=== PATIENT | female | born 1935 | race Caucasian/White ===

== ENCOUNTER → 2016-06-18 | Outpatient (CLI) | payer OTHER, BC ==
[~2016-06-18] MED LIST: ASPCH81X PO; CANA1TAB PO; CHOL20005 PO; GLC/500 PO; MULT-845 PO
--- NOTE | 2016-06-18 11:50 | DIAGNOSTIC IMAGING REPORT ---
KNEE 4 OR MORE VIEWS CLINICAL HISTORY: BILAT KNEE PAIN pain COMPARISON: 01/27/2013 DISCUSSION: Minimal to mild degenerative change all major joint compartments. Small osteophyte projecting from the tibial spines. No significant joint effusion. Small benign bone island distal femoral shaft. No acute bony abnormality. There is no evidence for soft tissue swelling. IMPRESSION: Minimal to mild degenerative change all major joint compartments. No major change compared to the prior study of 2012 Electronically signed by: Nick Gonzales M.D. 06/18/2016 11:49 AM Dictated Date/Time: 06/18/2016 11:47 AM
--- NOTE | 2016-06-18 11:50 | DIAGNOSTIC IMAGING REPORT ---
LEFT KNEE 3 VIEWS HISTORY: Left knee pain. COMPARISON: None. FINDINGS: There is no fracture or dislocation. Soft tissues are unremarkable. The bones are osteopenic. Mild cartilage space narrowing and small marginal osteophytes at the medial compartment of the knee. No significant knee effusion. IMPRESSION: No fractures. Mild osteoarthritis. Electronically signed by: Donavan Martinez M.D. 06/18/2016 11:49 AM Dictated Date/Time: 06/18/2016 11:47 AM
== END | disposition home or self-care (01) ==
LOC: C.RAD1850 11:11
PROVIDERS: ATTEND Family Medicine
DX: M25.561 Pain in right knee (principal); M25.562 Pain in left knee

== ENCOUNTER → 2016-10-02 | Outpatient (CLI) | payer OTHER, BC ==
--- NOTE | 2016-10-02 13:06 | MAMMOGRAPHY REPORT ---
BILATERAL DIGITAL SCREENING MAMMOGRAM WITH CAD: 10/02/2016 CLINICAL HISTORY: Routine screening. Patient has no complaints. TECHNIQUE: Bilateral CC and MLO views were obtained. Repeat left CC and right MLO views were also o btained. Current study was also evaluated with a Computer Aided Detection (CAD) system. COMPARISON: Comparison is made to exams dated: 09/29/2015 mammogram, 09/23/2014 mammogram, 09/17/2013 deion mogram, 09/16/2012 mammogram, 09/14/2011 mammogram, and 08/25/2010 mammogram - [facility] er. BREAST COMPOSITION: There are scattered areas of fibroglandular density in both breasts. FINDINGS: There are scattered benign-appearing round and coarse calcifications. No suspicious mass, architectural distortion or cluster of suspicious microcalcifications is seen. IMPRESSION: ACR BI-RADS CATEGORY 1: NEGATIVE There is no mammographic evidence of malignancy. A 1 year screening mammogram is recommended. The pa tient will receive written notification of the results. Approximately 10% of breast cancers are not detected with mammography. A negative mammographic report should not delay biopsy if a clinically suggestive mass is present. Yvette Miramontes M.D. ay/:10/02/2016 12:00:02 Pediatric Licensed Practical Nurse: Lexii NOLASCO(Gaye)([place])([place]), [facility] letter sent: Normal 1/2 BI-RADS Code: ACR BI-RADS Category 1: Negative
== END | disposition home or self-care (01) ==
LOC: C.MAMM 11:06
PROVIDERS: ATTEND Family Medicine
DX: Z12.31 Encounter for screening mammogram for malignant neoplasm of breast (principal)

== ENCOUNTER → 2017-07-02 | Outpatient (CLI) | payer OTHER, BC | END | disposition home or self-care (01) | LOC: C.RDSM 10:39 | PROVIDERS: ATTEND Orthopaedic Surgery Sports Medicine | DX: M25.561 Pain in right knee (principal); M25.562 Pain in left knee; M17.0 Bilateral primary osteoarthritis of knee ==

== ENCOUNTER → 2017-11-08 | Outpatient (CLI) | payer OTHER, BC ==
--- NOTE | 2017-11-08 14:29 | MAMMOGRAPHY REPORT ---
BILATERAL DIGITAL SCREENING MAMMOGRAM TOMOSYNTHESIS WITH CAD: 11/08/2017 CLINICAL HISTORY: Routine screening. Patient has no complaints. TECHNIQUE: Breast tomosynthesis in addition to standard 2D mammography was performed. Current study w as also evaluated with a Computer Aided Detection (CAD) system. COMPARISON: Comparison is made to exams dated: 10/02/2016 mammogram, 09/29/2015 mammogram, 09/23/2014 ma mmogram, 09/17/2013 mammogram, 09/16/2012 mammogram, and 09/14/2011 mammogram - [facility] er. BREAST COMPOSITION: There are scattered areas of fibroglandular density in both breasts. FINDINGS: No suspicious masses, calcifications, or areas of architectural distortion are noted in either breast . There has been no significant interval change compared to prior exams. Scattered bilateral benign-a ppearing calcifications are not significantly changed. IMPRESSION: ACR BI-RADS CATEGORY 2: BENIGN There is no mammographic evidence of malignancy. A 1 year screening mammogram is recommended.( [id number]) The patient will receive written notification of the results. Some breast cancers are not detected with mammography. A negative mammographic report should not janneth y biopsy if a clinically suggestive mass is present. Nay Laurent M.D. ah/:11/08/2017 14:08:53 Field Account Director: RT Ivy(Gaye)(M), [facility] letter sent: Normal 1/2 BI-RADS Code: ACR BI-RADS Category 2: Benign
== END | disposition home or self-care (01) ==
LOC: C.MAMM 13:09
PROVIDERS: ATTEND Family Medicine
DX: Z12.31 Encounter for screening mammogram for malignant neoplasm of breast (principal)

== ENCOUNTER 2019-08-10 12:07 | Inpatient (IN) ==
[2019-08-10] MEDS ORDERED: VANCOMYCIN CONSULT ACTIVE PRN ×2 (12:28→22:02)
[2019-08-10] MEDS ORDERED: VANCOMYCIN HCL 1,500 MG in SODIUM CHLORIDE 0.9% 500 ML IV STA (12:28)
[2019-08-10] MEDS ORDERED: CEFEPIME 2,000 MG/12.5 ML VIAL IV STA (12:33)
--- NOTE | 2019-08-10 12:39 | Emergency Department Note ---
History of Present Illness General Chief complaint: Finger Pain Stated complaint: finger pain Time Seen by Provider: 08/10/19 12:15 Source: patient Mode of arrival: ambulatory Limitations: no limitations History of Present Illness Maximum Pain Intensity: 5 This is a 84-year-old female who presents to the ED with a chief complaint of swelling and pain in the left hand. The patient states that she has noticed the swelling and pain in the left hand over the past couple of days. She also states that it is red and tender. She has had some issues with her distal thumbs as they seem to be eroding away. This is been over a more prolonged period of time. The patient states that she has discomfort in the hand that feels like tension. She has not had any fevers. No nausea or vomiting. The left hand is entirely affected and she has erosion of the left distal thumb. The right hand only has some erosion of the distal thumb. The distal portion of that thumb is also reddened. There is no discharge from either wound. She also has some wounds in the M CP joint areas on the palmar side. These appear to be somewhat chronic as well. Home Medications Home Medications Medication Instructions Recorded Confirmed Type Levemir U-100 Insulin 8 unit SUBCUT HS 01/09/18 08/10/19 History sitagliptin-metformin 2 tab PO DAILY 01/09/18 08/10/19 History cholecalciferol (vitamin D3) 2,000 units PO DAILY #60 cap 01/15/18 08/10/19 Rx [Vitamin D3] Multivitamin 50 Plus 1 tab PO DAILY 02/11/18 08/10/19 History PreserVision AREDS 1 tab PO BID 02/11/18 08/10/19 History aspirin [Ecotrin Low Strength] 81 mg PO Q OTHER DAY 02/11/18 08/10/19 History hypromellose 1 drp OPHTHALMIC (EYE) QID PRN 02/11/18 08/10/19 History metoprolol succinate 12.5 mg PO DAILY 02/09/19 08/10/19 History Jardiance 25 mg PO DAILY 03/23/19 08/10/19 History pantoprazole 40 mg PO DAILY 03/23/19 08/10/19 History losartan 25 mg PO DAILY 08/10/19 08/10/19 History Allergies Allergy/AdvReac Type Severity Reaction Status Date / Time No Known Allergies Allergy Mild NONE Verified 02/09/19 19:29 Past Med/Surg History Medical History Aortic stenosis Aortic stenosis Arthritis (Chronic) Bifascicular bundle branch block Chronic diastolic CHF (congestive heart failure) Diabetes (Chronic) Left shoulder pain Mitral regurgitation Pericardial effusion Sinus tachycardia Surgical History Status post cholecystectomy Status post shoulder surgery bilateral Family History Other Family history non-contributory Social History Preferred Language: Kinyarwanda Communication Ability: Effective Visual Impairment: No Limitations Hearing Ability: Normal Electric Vehicle Electrician Required: No Beliefs That Will Affect Care: None marital status: Single Current Living Situation: Family Current Living Situation Comment: sister Feels Safe at Home: Yes Smoking Status: Former smoker Hx Alcohol Use: No Hx Substance Use: No Review of Systems A total of 10 systems reviewed and were otherwise negative Physical Exam Vital Signs Vital Signs - 24 hr 08/10/19 12:09 08/10/19 13:22 08/10/19 13:30 Temperature 37.2 C Temperature Source Oral Pulse Rate 117 H 120 H 121 H Respiratory Rate 20 21 24 Respiratory Effort / Characteristics Non-Labored Respiratory Depth Normal Blood Pressure 149/90 H Blood Pressure Mean 109 Blood Pressure Position Sitting Pulse Oximetry 94 Oxygen Delivery Method Room Air Sepsis Recent Fever Within 48 Hours No Sepsis Action Taken by Nursing No Action Required 08/10/19 13:34 08/10/19 13:40 08/10/19 13:50 Temperature Temperature Source Pulse Rate 115 H 118 H 121 H Respiratory Rate 22 22 22 Respiratory Effort / Characteristics Respiratory Depth Blood Pressure 126/71 Blood Pressure Mean 95 Blood Pressure Position Pulse Oximetry Oxygen Delivery Method Sepsis Recent Fever Within 48 Hours Sepsis Action Taken by Nursing 08/10/19 14:00 08/10/19 14:10 08/10/19 14:20 Temperature Temperature Source Pulse Rate 112 H 111 H 110 H Respiratory Rate 24 38 H 33 H Respiratory Effort / Characteristics Respiratory Depth Blood Pressure 115/68 Blood Pressure Mean 78 Blood Pressure Position Pulse Oximetry Oxygen Delivery Method Sepsis Recent Fever Within 48 Hours Sepsis Action Taken by Nursing 08/10/19 14:30 08/10/19 14:40 Temperature Temperature Source Pulse Rate 110 H 106 H Respiratory Rate 22 34 H Respiratory Effort / Characteristics Respiratory Depth Blood Pressure 120/68 Blood Pressure Mean 71 Blood Pressure Position Pulse Oximetry Oxygen Delivery Method Sepsis Recent Fever Within 48 Hours Sepsis Action Taken by Nursing CONSTITUTIONAL/VITAL SIGNS: Reviewed / noted above. GENERAL: Non-toxic in appearance. INTEGUMENTARY: Warm, dry, and [place]. HEAD: Normocephalic. EYES: without scleral icterus or trauma. ENT/OROPHARYNX: clear and moist. LYMPHADENOPATHY/NECK: Is supple without lymphadenopathy or meningismus. RESPIRATORY: Lungs clear and equal. CARDIOVASCULAR: Regular rate and rhythm. GI/ABDOMEN: Soft and nontender. No organomegaly or pulsatile mass. No rebound or guarding. Normal bowel sounds. EXTREMITIES: Warm and well perfused. The patient has a swollen red hand that is warm and somewhat tender. This also goes to the distal wrist. There are no red streaks up the arm. There is erosion of the left thumb with a chronic appearing open wound at the base of the left thumb on the palmar side. The patient also has what appears to be some erosion of the right thumb with some redness as well as a chronic appearing ulceration at the base of that thumb as well. The right hand does not appear to have any significant swelling or redness other than the thumb. BACK: No CVA tenderness. NEUROLOGICAL: Intact without focal deficits. PSYCHIATRIC: normal affect. MUSCULOSKELETAL: Normally developed with good muscle tone. TRIAGE NURSING DOCUMENTATION REVIEWED. Course Administered Medications Vancomycin HCl 1,500 mg/ (Sodium Chloride) 530 mls @ 200 mls/hr IV NOW STA Stop: 08/10/19 14:57 Last Admin: 08/10/19 13:28 Dose: 200 mls/hr Documented by: [id number] Discontinued Medications Cefepime HCl (Maxipime) 2,000 mg in 12.5 mls @ 3.125 mls/min IV NOW STA Stop: 08/10/19 12:36 Last Admin: 08/10/19 13:28 Dose: 3.125 mls/min Documented by: [id number] Medical Decision Making Medical Records Attestation: I reviewed the patient's medical records. Home Medications Current Medication List: was personally reviewed by me Laboratory Data Attestation: I reviewed the patient's lab results. Result diagrams: 08/10/19 13:10 08/10/19 13:10 Lab Results 08/10/19 08/10/19 08/10/19 Range/Units 13:10 13:10 13:10 WBC 16.75 H (4.8-10.8) K/uL RBC 4.66 (4.2-5.4) M/uL Hgb 14.0 (12.0-16.0) g/dL Hct 41.5 (37-47) % MCV 89.1 (80-100) fL MCH 30.0 (25-34) pg MCHC 33.7 (32-36) g/dL RDW Std Deviation 44.2 (36.4-46.3) fL RDW Coeff of Sharri 13.6 (11.5-14.5) % Plt Count 471 H (130-400) K/uL MPV 9.1 (7.4-10.4) fL Immature Gran % (Auto) 0.5 % Neut % (Auto) 82.4 % Lymph % (Auto) 8.7 % [place] % (Auto) 8.2 % Eos % (Auto) 0.0 % Baso % (Auto) 0.2 % Immature Gran # (Auto) 0.08 H (0.00-0.02) K/uL Neut # (Auto) 13.80 H (1.4-6.5) K/uL Lymph # (Auto) 1.46 (1.2-3.4) K/uL [place] # (Auto) 1.38 H (0.11-0.59) K/uL Eos # (Auto) 0.00 (0-0.5) K/uL Baso # (Auto) 0.03 (0-0.2) K/uL ESR 76 H (0-21) mm/hr Sodium 135 L (136-145) mmol/L Potassium 3.8 (3.5-5.1) mmol/L Chloride 98 (98-107) mmol/L Carbon Dioxide 28 (21-32) mmol/L Anion Gap 9.0 (3-11) BUN 13 (7-18) mg/dl Creatinine 0.57 L (0.6-1.2) mg/dl Est Cr Clr Drug Dosing Not Reportable Est GFR ( Amer) 99.4 Est GFR (Non-Af Amer) 85.7 BUN/Creatinine Ratio 22.2 H (10-20) Glucose 235 H (70-99) mg/dl Calcium 8.8 (8.5-10.1) mg/dl Total Bilirubin 1.1 H (0.2-1) mg/dl AST 12 L (15-37) U/L ALT 19 (12-78) U/L Alkaline Phosphatase 75 (45-117) U/L Total Protein 7.6 (6.4-8.2) gm/dl Albumin 2.9 L (3.4-5.0) gm/dl Globulin 4.7 H (2.5-4.0) gm/dl Albumin/Globulin Ratio 0.6 L (0.9-2) Imaging Data Radiologist's Impression: X-ray of the right hand: IMPRESSION: Osseous erosion of the distal phalanx of the right first finger strongly suggests osteomyelitis in the appropriate clinical setting. X-ray of the left hand IMPRESSION: 1. Osseous dissolution of the distal phalanx of the first finger with possible focal osteopenia of the head of the proximal phalanx. In the setting of infection, these findings are highly suspicious for osteomyelitis with possible involvement of the proximal phalanx. 2. Diffuse soft tissue swelling may represent cellulitis. Blood Pressure Blood Pressure Findings: Elevated blood pressure MDM Narrative This is a 84-year-old female who presents to the ED with a chief complaint of swelling and pain in the left hand. The patient states that she has noticed the swelling and pain in the left hand over the past couple of days. She also states that it is red and tender. She has had some issues with her distal thumbs as they seem to be eroding away. This is been over a more prolonged period of time. The patient states that she has discomfort in the hand that feels like tension. She has not had any fevers. No nausea or vomiting. The left hand is entirely affected and she has erosion of the left distal thumb. The right hand only has some erosion of the distal thumb. The distal portion of that thumb is also reddened. There is no discharge from either wound. She also has some wounds in the M CP joint areas on the palmar side. These appear to be somewhat chronic as well. The patient's vital signs reveal some mild hypertension as well as tachycardia with a heart rate of 117. Her exam as noted above. She has an edematous erythematous left hand with appearance of erosion of the distal left thumb as well as erosion of the distal right thumb. The patient's x-rays of her hands reveal findings suggesting osteomyelitis of the bilateral thumbs. The patient also has an elevated white blood cell count of 16.7. Her glucose is 235. The other lab tests were unremarkable. She was given IV cefepime and IV Vanco. I spoke with the orthopedist on-call, Dr. Haskins. He feels the patient needs medical admission and antibiotics at this point. He did notice that orthopedics from [facility] has seen the patient in the past. He recommends that they be consulted while the patient is in the hospital. The patient does not need urgent surgery. I spoke with Dr. Gonzalez from medicine. He will see the patient for admission for antibiotics. Impression & Plan Cellulitis of hand, Osteomyelitis Discharge Plan Visit Data Chief Complaint: Finger Pain Stated Complaint: finger pain ED Provider: Amado Haile Discharge Problem: Cellulitis of hand, Osteomyelitis Patient Disposition: Being Evaluated by Hospitalist Condition: Good Forms Stand Alone Forms: My [facility], Important Visit Information Prescriptions Prescriptions: No Action Levemir U-100 Insulin 100 unit/mL solution 8 unit subcut HS RF: 0 sitagliptin-metformin 50-1,000 mg tablet, ER multiphase 24 hr 2 tab PO DAILY RF: 0 cholecalciferol (vitamin D3) [Vitamin D3] 1,000 unit capsule 2,000 units PO DAILY Qty: 60 RF: 10 hypromellose 2.5 % Drops 1 drp OPHTHALMIC (EYE) QID PRN (Reason: Dry Eye(S)) RF: 0 aspirin [Ecotrin Low Strength] 81 mg tablet,delayed release (DR/EC) 81 mg PO Q OTHER DAY RF: 0 PreserVision AREDS [id number] Tablet 1 tab PO BID RF: 0 Multivitamin 50 Plus Tablet 1 tab PO DAILY RF: 0 metoprolol succinate 25 mg tablet extended release 24 hr 12.5 mg PO DAILY RF: 0 pantoprazole 40 mg Tablet,Delayed Release (Dr/Ec) 40 mg PO DAILY RF: 0 Jardiance 25 mg Tablet 25 mg PO DAILY RF: 0 losartan 25 mg tablet 25 mg PO DAILY RF: 0 Referrals Referrals: Musa Banuelos MD [Primary Care Provider] -
--- NOTE | 2019-08-10 12:55 | XRay Report ---
XR hand RT min 3V routine CLINICAL HISTORY: 84 years-old Female presenting with thumb infection. TECHNIQUE: Frontal, oblique, and lateral views of the right hand were obtained. COMPARISON: Plain radiographs of the right wrist from 07/29/2014. FINDINGS: Osteopenia. There is osseous dissolution of the mid to distal aspect of the distal phalanx of the fir st finger. Only the base remains, which is congruent at the interphalangeal joint. Regional soft tiss ue swelling and added density. No gross evidence of soft tissue emphysema. Degenerative changes at th e first carpometacarpal articulation. Lesser degenerative changes at the second and third metacarpoph alangeal joints and several interphalangeal joints. IMPRESSION: Osseous erosion of the distal phalanx of the right first finger strongly suggests osteomyelitis in th e appropriate clinical setting. ACT 112: Negative or not required by law. Electronically signed by: Nikolai Yoon M.D. 08/10/2019 12:54 PM
--- NOTE | 2019-08-10 12:58 | XRay Report ---
XR hand LT min 3V routine CLINICAL HISTORY: 84 years-old Female presenting with thumb infection. TECHNIQUE: Frontal, oblique, and lateral views of the left hand were obtained. COMPARISON: None. FINDINGS: Extensive soft tissue swelling involving the hand in all of the fingers. Osseous dissolution of the d istal phalanx of the first finger with only a minimal portion of the base of the distal phalanx remai tyrell at the interphalangeal joint. There may also be focal osteopenia on a background of diffuse oste openia of the head of the proximal phalanx of the first finger. No radiographic evidence of soft tiss ue emphysema. Degenerative changes at the carpus and several interphalangeal joints. IMPRESSION: 1. Osseous dissolution of the distal phalanx of the first finger with possible focal osteopenia of t he head of the proximal phalanx. In the setting of infection, these findings are highly suspicious fo r osteomyelitis with possible involvement of the proximal phalanx. 2. Diffuse soft tissue swelling may represent cellulitis. The report will be called/faxed according to standard departmental protocol. ACT 112: Negative or not required by law. Electronically signed by: Nikolai Yoon M.D. 08/10/2019 12:57 PM
[2019-08-10 13:31] LABS: Basophils # (auto) 0.03 K/uL (0-0.2); Basophils % (auto) 0.2 %; Hematocrit (blood only) 41.5 % (37-47); Immature Granulocytes # (auto) 0.08 K/uL (0.00-0.02); Immature Granulocytes % (auto) 0.5 %; Lymphocytes # (auto) 1.46 K/uL (1.2-3.4); Lymphocytes % (auto) 8.7 %; Mean Corpuscular Hgb Conc 33.7 g/dL (32-36); Mean Corpuscular Volume 89.1 fL (80-100); Mean Platelet Volume 9.1 fL (7.4-10.4); Monocytes # (auto) 1.38 K/uL (0.11-0.59); Monocytes % (auto) 8.2 %; Neutrophils % (auto) 82.4 %; Platelet Count 471 K/uL (130-400); RDW Coefficient of Variation 13.6 % (11.5-14.5); RDW Standard Deviation 44.2 fL (36.4-46.3); Red Blood Count 4.66 M/uL (4.2-5.4); White Blood Count 16.75 K/uL (4.8-10.8)
[2019-08-10 13:48] LABS: Alanine Aminotransferase 19 U/L (12-78); Albumin Level 2.9 gm/dl (3.4-5.0); Aspartate Aminotransferase 12 U/L (15-37); BUN Creatinine Ratio 22.2 (10-20); Blood Urea Nitrogen 13 mg/dl (7-18); Calcium 8.8 mg/dl (8.5-10.1); Carbon Dioxide 28 mmol/L (21-32); Chloride 98 mmol/L (98-107); Est GFR (African American) 99.4; Est GFR (Non-African American) 85.7; Glucose 235 mg/dl (70-99); Potassium 3.8 mmol/L (3.5-5.1); Sodium 135 mmol/L (136-145)
[2019-08-10 13:50] LABS: Albumin Globulin Ratio 0.6 (0.9-2); Alkaline Phosphatase 75 U/L (45-117); Bilirubin,Total 1.1 mg/dl (0.2-1); Globulin 4.7 gm/dl (2.5-4.0); Total Protein 7.6 gm/dl (6.4-8.2)
--- NOTE | 2019-08-10 16:00 | History & Physical Report ---
Date of Service August 10, 2019 Assessment & Plan (1) Cellulitis of hand: Suspect due to peripheral neuropathy (although patient reports normal sensation this appears difficult to believe given the amount of her thumb she has removed Initially prescribed vanc and cefepime in ER. Changed to Cefazolin but given concurrent osteomyelitis (possibly acute) as below will switch back to vanc + cefepime for broad spectrum coverage in setting of unknown duration of illness and HbA1C. Elevate left hand. Blood cultures pending. (2) Osteomyelitis: Vancomycin + Cefepime as above. Unclear if neuropathy or carpel tunnel to blame for her ability to have Consult orthopedics. (3) Tinea manuum: Suspected. Start terbinafine cream pending orthopedic and wound consults. Likely will need oral terbinafine although can defer this until after consults. (4) Hypertension: Continue losartan 25mg PO daily (5) Aortic stenosis: Known severe , mod AR. Pt reports planning on TAVR on August 16 but will need to confirm with her sister Kayla. Surgery may have to be delayed as she will still be on antibiotics for current infection at that time. Cautiously hydrate with IV fluids. (6) Mitral regurgitation: noted history of this. As above. (7) Chronic diastolic CHF (congestive heart failure): Noted history of this although not on Lasix, suspect related to valvular disease as above and will cautiously hydrate while monitoring for heart failure and worsening respiratory status. Continue metoprolol succinate and losartan. (8) Type 2 diabetes mellitus: Pt reports complication of peripheral neuropathy. Consult pharmacy glycemic control for basal bolus insulin regimen (stop home meds) HbA1C in AM (last one on EHR 5.7 in 01/2018). (9) DVT prophylaxis: Lovenox 40mg SQ daily Admission and Anticipated Discharge Date Admission Date: 08/10/2019 History of Present Illness Chief Complaint: Left hand swelling and pain Primary Care Provider: Musa Banuelos MD Nahomi Harrington is an 84 year old female with T2DM, severe aortic stenosis and moderate aortic regurgitation who presents to the ER with pain and swelling in her left hand. She told the ER physician this has occurred over the past 2 days although she says she is unsure how long it has been going on to me. She thinks her thumbs have been eroding away with skin that the picks away for the last 4 years. Her thumbs are very itchy and she tries to cut off all the skin but wonders why it keeps coming back. She denies any prior fungal infections. She has not seen her PCP for this or been on antibiotics previously. She notes seeing her PCP in April but is unsure if this problem was present then. She notes no history of carpel tunnel syndrome although this is listed on her Powerchart problem list. She denies fevers, chills or discharge from the wounds. She is very concerned about needing to go to [facility] on August 16 for her TAVR procedure and I informed her they are unlikely to perform this in the setting of an active infection. She denies any recent significant worsening of shortness of breath, chest pain or dizziness on exertion to suggest an acute worsening of her aortic stenosis. Tried calling her sister on two separate occasions at home number provided for collateral history without answer. Patient reports her sister makes most of her medical decisions. Allergies Allergy/AdvReac Type Severity Reaction Status Date / Time No Known Allergies Allergy Mild NONE Verified 02/09/19 19:29 Home Medications Home Medications Medication Instructions Recorded Confirmed Type Levemir U-100 Insulin 8 unit SUBCUT HS 01/09/18 08/10/19 History sitagliptin-metformin 2 tab PO DAILY 01/09/18 08/10/19 History cholecalciferol (vitamin D3) 2,000 units PO DAILY #60 cap 01/15/18 08/10/19 Rx [Vitamin D3] Multivitamin 50 Plus 1 tab PO DAILY 02/11/18 08/10/19 History PreserVision AREDS 1 tab PO BID 02/11/18 08/10/19 History aspirin [Ecotrin Low Strength] 81 mg PO Q OTHER DAY 02/11/18 08/10/19 History hypromellose 1 drp OPHTHALMIC (EYE) QID PRN 02/11/18 08/10/19 History metoprolol succinate 12.5 mg PO DAILY 02/09/19 08/10/19 History Jardiance 25 mg PO DAILY 03/23/19 08/10/19 History pantoprazole 40 mg PO DAILY 03/23/19 08/10/19 History losartan 25 mg PO DAILY 08/10/19 08/10/19 History Past Med/Surg History Medical History Aortic stenosis Aortic stenosis Arthritis (Chronic) Bifascicular bundle branch block Chronic diastolic CHF (congestive heart failure) Diabetes (Chronic) Left shoulder pain Mitral regurgitation Pericardial effusion Sinus tachycardia Surgical History Status post cholecystectomy Status post shoulder surgery bilateral Family History Other Family history non-contributory Social History Preferred Language: Niuean Communication Ability: Effective Visual Impairment: No Limitations Hearing Ability: Normal Collar Padder Blindstitch Required: No Beliefs That Will Affect Care: None marital status: Single Current Living Situation: Family Current Living Situation Comment: sister Other Information That Helps Us Care for You: No Feels Safe at Home: Yes Smoking Status: Former smoker Hx Alcohol Use: No Hx Substance Use: No Review of Systems Review of Systems: All systems reviewed & are unremarkable except as noted in HPI & below Physical Exam Constitutional: well developed and well nourished; no acute distress Eyes: PERRL, conjunctivae normal, anicteric sclerae ENMT: external ear and nose normal, oropharynx normal Neck: trachea midline, no thyromegaly Respiratory: normal respiratory effort, lungs clear to auscultation Cardiovascular: Rate/Rhythm: regular rate and regular rhythm Heart Sounds: + murmur (ejection systolic throughout) Vessels: + JVD and normal peripheral pulses Extremities: normal capillary refill; no calf tenderness and no pedal edema Gastrointestinal (Abdomen): normal bowel sounds, soft, nontender, no hepatosplenomegaly Musculoskeletal: no cyanosis or clubbing, extremities motor strength 5/5 Skin: + ulcer (left stump of 1st digit), + skin tightening, + wound (right palmar MCP skin tear), + crusts (b/l palmar aspect of MCP, right proximal phalanx), + erythema (cellulitis appearing L 1st digit including thenar eminence not beyond wrist) and + skin hypertrophy (Around left 1st proximal phalanx); no fluctulance Neurologic: moves all extremities and awake; no focal motor deficits and not confused Motor/Sensory: + sensory deficit (b/l toes, normal sensation in finger tips); no tremor and no pronator drift Psychiatric: A+Ox3, euthymic affect Lymphatic: no cervical or axillary lymphadenopathy Results & Data Results & Data ([facility]) Vital Signs (Past 12 Hours) Vital Signs Temp Pulse Resp BP Pulse Ox 08/10/19 14:40 106 H 34 H 08/10/19 14:30 110 H 22 120/68 08/10/19 14:20 110 H 33 H 08/10/19 14:10 111 H 38 H 08/10/19 14:00 112 H 24 115/68 08/10/19 13:50 121 H 22 08/10/19 13:40 118 H 22 08/10/19 13:34 115 H 22 126/71 08/10/19 13:30 121 H 24 08/10/19 13:22 120 H 21 08/10/19 12:09 37.2 C 117 H 20 149/90 H 94 Diagnostic Findings XR hand LT min 3V routine IMPRESSION: 1. Osseous dissolution of the distal phalanx of the first finger with possible focal osteopenia of the head of the proximal phalanx. In the setting of infection, these findings are highly suspicious for osteomyelitis with possible involvement of the proximal phalanx. 2. Diffuse soft tissue swelling may represent cellulitis. XR hand RT min 3V routine IMPRESSION: Osseous erosion of the distal phalanx of the right first finger strongly suggests osteomyelitis in the appropriate clinical setting. XR chest 1V portable IMPRESSION: 1. Cardiomegaly without evidence of volume overload or congestive change. 2. Hyperinflation and heterogeneity may suggest underlying emphysema. Code Status & VTE Plan Code Status Full pending discussion with her sister as patient really unable to make a decision. VTE Prophylaxis Plan VTE Prophylaxis will be ordered: Yes PG Care Time/CCT Total # of Minutes Spent Total Time Spent with Patient: Total time spent is greater than 50% in coordination of care (as documented) at patient's floor/unit and/or counseling patient: Coding Level of Care Code 59949 Initial Inpt Care Lvl 3 Diagnoses Cellulitis of hand L03.119 Osteomyelitis M86.149 Laterality: unspecified laterality Osteomyelitis location: hand Osteomyelitis type: other acute Tinea manuum B35.2 Hypertension I10 Hypertension type: essential hypertension Aortic stenosis I35.0 Cardiac valve disease etiology: etiology unspecified Mitral regurgitation I34.0 Cardiac valve disease etiology: etiology unspecified Chronic diastolic CHF (congestive heart failure) I50.32 Type 2 diabetes mellitus E11.9 DVT prophylaxis Z29.9 (1) Aortic stenosis Cardiac valve disease etiology: etiology unspecified Qualified Code(s): I35.0 - Nonrheumatic aortic (valve) stenosis (2) Mitral regurgitation Cardiac valve disease etiology: etiology unspecified Qualified Code(s): I34.0 - Nonrheumatic mitral (valve) insufficiency (3) Hypertension Hypertension type: essential hypertension Qualified Code(s): I10 - Essential (primary) hypertension (4) Osteomyelitis Laterality: unspecified laterality Osteomyelitis location: hand Osteomyelitis type: other acute Qualified Code(s): M86.149 - Other acute osteomyelitis, unspecified hand
--- NOTE | 2019-08-10 16:26 | XRay Report ---
XR chest 1V portable CLINICAL HISTORY: 84 years-old Female presenting with ?pulmonary edema. TECHNIQUE: Portable upright AP view of the chest was obtained. COMPARISON: 02/09/2019. FINDINGS: Atherosclerosis of the aortic arch. Cardiac silhouette mildly enlarged. Mitral annular calcification noted. Heterogeneity of lung parenchyma. Mild hyperinflation. Degenerative changes of the thoracic sp ine. Right shoulder arthroplasty. Internal fixation hardware of the left humerus. Upper abdomen greg l. IMPRESSION: 1. Cardiomegaly without evidence of volume overload or congestive change. 2. Hyperinflation and heterogeneity may suggest underlying emphysema. ACT 112: Negative or not required by law. Electronically signed by: Nikolai Yoon M.D. 08/10/2019 4:25 PM
[2019-08-10] MEDS ORDERED: PATIENT'S HEIGHT AND/OR WEIGHT NEEDED SCH (17:00)
[2019-08-10] MEDS ORDERED: PHARMACY GLYCEMIC MGMT CONSULT PRN (17:28)
[2019-08-10] MEDS ORDERED: GLUCAGON FOR INJ 1 MG VIAL IM PRN (18:00)
[2019-08-10] MEDS ORDERED: GLUCOSE 10 TABS/TUBE PO PRN (18:00)
[2019-08-10] MEDS ORDERED: DEXTROSE 50% 50 ML SYRINGE IV PRN (18:00)
[2019-08-10] MEDS ORDERED: CARBOHYDRATES FOR HYPOGLYCEMIA PO PRN (18:00)
[2019-08-10] MEDS ORDERED: GLUCOSE 40% GEL 15 GM TUBE PO PRN (18:00)
[2019-08-10] MEDS ORDERED: LACTATED RINGER'S 500 ML IV ONE (19:13)
[2019-08-10] MEDS: INSULIN ASPART 100 UNITS/ML 3 ML PEN SC SCH ×3 (19:29→23:39)
[2019-08-10] MEDS ORDERED: NON-FORMULARY MEDICATION (Vitamins A,C,E-Zinc-Copper [Preservision Areds] 1 TAB) PO SCH (21:00)
[2019-08-10] MEDS: ACETAMINOPHEN 325 MG TAB PO PRN (21:09)
[2019-08-10] MEDS ORDERED: INSULIN GLARGINE SOLOSTAR 100 UNITS/ML 3 ML PEN SC STA (21:38)
[2019-08-10] MEDS: ENOXAPARIN INJ 40 MG/0.4 ML SYR SQ SCH (21:48)
[2019-08-10] MEDS ORDERED: CEFAZOLIN 2000MG 2,000 MG/15 ML SYR IV SCH (22:00)
[2019-08-10] MEDS ORDERED: LACTATED RINGER'S 1,000 ML IV SCH (22:30)
[2019-08-10] MEDS: CEFEPIME 2,000 MG in SYRINGE 7.5 ML IV SCH (22:43)
[2019-08-10] MEDS: TERBINAFINE CR 30 GM TUBE EXT SCH (22:44)
[2019-08-11] MEDS: VANCOMYCIN HCL 1,000 MG in SODIUM CHLORIDE 0.9% 250 ML IV SCH ×2 (02:47→13:41)
[2019-08-11] MEDS: INSULIN ASPART 100 UNITS/ML 3 ML PEN SC SCH ×5 (04:07→21:04)
[2019-08-11 05:05] LABS: Basophils # (auto) 0.04 K/uL (0-0.2); Basophils % (auto) 0.3 %; Eosinophils # (auto) 0.09 K/uL (0-0.5); Eosinophils % (auto) 0.6 %; Hematocrit (blood only) 39.7 % (37-47); Hemoglobin 13.1 g/dL (12.0-16.0); Immature Granulocytes # (auto) 0.05 K/uL (0.00-0.02); Immature Granulocytes % (auto) 0.4 %; Lymphocytes # (auto) 2.03 K/uL (1.2-3.4); Lymphocytes % (auto) 14.6 %; Mean Corpuscular Hemoglobin 29.8 pg (25-34); Mean Corpuscular Volume 90.4 fL (80-100); Mean Platelet Volume 8.8 fL (7.4-10.4); Monocytes # (auto) 1.48 K/uL (0.11-0.59); Monocytes % (auto) 10.6 %; Neutrophils # (auto) 10.21 K/uL (1.4-6.5); Neutrophils % (auto) 73.5 %; Platelet Count 418 K/uL (130-400); RDW Coefficient of Variation 13.7 % (11.5-14.5); RDW Standard Deviation 45.1 fL (36.4-46.3); Red Blood Count 4.39 M/uL (4.2-5.4)
[2019-08-11 05:21] LABS: Albumin Level 2.2 gm/dl (3.4-5.0); BUN Creatinine Ratio 29.1 (10-20); Calcium 8.1 mg/dl (8.5-10.1); Creatinine Clr Calc Pharmacy 98.9 ml/min; Est GFR (African American) 111.6; Est GFR (Non-African American) 96.3; Potassium 3.4 mmol/L (3.5-5.1)
[2019-08-11 05:32] LABS: Albumin Globulin Ratio 0.6 (0.9-2); Bilirubin,Total 0.9 mg/dl (0.2-1); Total Protein 6.2 gm/dl (6.4-8.2)
[2019-08-11] MEDS: CEFEPIME 2,000 MG in SYRINGE 7.5 ML IV SCH ×3 (05:39→21:15)
[2019-08-11 06:30] LABS: Estimated Average Glucose 220 mg/dl; Hemoglobin A1C 9.3 % (4.5-5.6)
[2019-08-11] MEDS: ACETAMINOPHEN 325 MG TAB PO PRN ×2 (07:57→21:27)
[2019-08-11] MEDS: CHOLECALCIFEROL 1,000 UNITS 25 MCG TAB PO SCH (08:37)
[2019-08-11] MEDS: CEROVITE ADV FORMULA TAB PO SCH (08:38)
[2019-08-11] MEDS: METOPROLOL SUCC 25MG EXT REL TAB PO SCH (08:38)
[2019-08-11] MEDS: TERBINAFINE CR 30 GM TUBE EXT SCH ×2 (08:38→21:05)
[2019-08-11] MEDS: PANTOprazole 40 MG TAB PO SCH (08:38)
[2019-08-11] MEDS: ASPIRIN 81 MG ECTAB PO SCH (08:38)
[2019-08-11] MEDS: LOSARTAN POTASSIUM 25 MG TAB PO SCH (08:38)
[2019-08-11] MEDS ORDERED: POTASSIUM CHLORIDE 20 MEQ TABCR PO ONE (09:30)
--- NOTE | 2019-08-11 10:12 | Pharmacy Report ---
Pharmacy Abx/Gly Intl Consult - Date of Service August 11, 2019 - Scope Pharmacy has been consulted by Dr. Gonzalez to manage Vancomycin dosing and glycemic control for this patient as per the Pharmacy & Therapeutics Committee approved dosing protocols. - Subjective The patient is a 84 year old F admitted on 08/10/19 14:39. - Objective Vital Signs (Past 12hrs): Vital Signs Temp Pulse Resp BP Pulse Ox 08/11/19 07:26 37.2 C 98 H 18 119/71 95 08/11/19 04:13 36.9 C 98 H 18 120/74 94 08/10/19 23:49 100 H 16 97/59 L 92 08/10/19 23:02 37.0 C 99 H 16 99/59 L 92 Accuchecks BSG (last 24hrs): 08/10/19 08/10/19 08/10/19 13:10 17:07 19:13 Glucose 235 H POC Glucose 130 H 149 H 08/10/19 08/10/19 08/11/19 20:49 23:28 04:05 Glucose POC Glucose 315 H* 184 H 88 08/11/19 08/11/19 04:49 08:16 Glucose 85 POC Glucose 89 HbA1c: Hemoglobin A1c 9.3 % (4.5-5.6) H 08/11/19 04:49 Lab Results (24hrs): Laboratory Results - last 24 hr 08/10/19 08/10/19 08/10/19 13:10 13:10 13:10 WBC 16.75 H RBC 4.66 Hgb 14.0 Hct 41.5 MCV 89.1 MCH 30.0 MCHC 33.7 RDW Std Deviation 44.2 RDW Coeff of Sharri 13.6 Plt Count 471 H MPV 9.1 Immature Gran % (Auto) 0.5 Neut % (Auto) 82.4 Lymph % (Auto) 8.7 Ripley % (Auto) 8.2 Eos % (Auto) 0.0 Baso % (Auto) 0.2 Immature Gran # (Auto) 0.08 H Neut # (Auto) 13.80 H Lymph # (Auto) 1.46 Ripley # (Auto) 1.38 H Eos # (Auto) 0.00 Baso # (Auto) 0.03 ESR 76 H Sodium 135 L Potassium 3.8 Chloride 98 Carbon Dioxide 28 Anion Gap 9.0 BUN 13 Creatinine 0.57 L Est Cr Clr Drug Dosing Not Reportable Est GFR ( Amer) 99.4 Est GFR (Non-Af Amer) 85.7 BUN/Creatinine Ratio 22.2 H Glucose 235 H POC Glucose Estimat Average Glucose Hemoglobin A1c Calcium 8.8 Total Bilirubin 1.1 H AST 12 L ALT 19 Alkaline Phosphatase 75 C-Reactive Protein Total Protein 7.6 Albumin 2.9 L Globulin 4.7 H Albumin/Globulin Ratio 0.6 L 08/10/19 08/10/19 08/10/19 13:10 17:07 19:13 WBC RBC Hgb Hct MCV MCH MCHC RDW Std Deviation RDW Coeff of Sharri Plt Count MPV Immature Gran % (Auto) Neut % (Auto) Lymph % (Auto) Ripley % (Auto) Eos % (Auto) Baso % (Auto) Immature Gran # (Auto) Neut # (Auto) Lymph # (Auto) Ripley # (Auto) Eos # (Auto) Baso # (Auto) ESR Sodium Potassium Chloride Carbon Dioxide Anion Gap BUN Creatinine Est Cr Clr Drug Dosing Est GFR ( Amer) Est GFR (Non-Af Amer) BUN/Creatinine Ratio Glucose POC Glucose 130 H 149 H Estimat Average Glucose Hemoglobin A1c Calcium Total Bilirubin AST ALT Alkaline Phosphatase C-Reactive Protein 0.31 H Total Protein Albumin Globulin Albumin/Globulin Ratio 08/10/19 08/10/19 08/11/19 20:49 23:28 04:05 WBC RBC Hgb Hct MCV MCH MCHC RDW Std Deviation RDW Coeff of Sharri Plt Count MPV Immature Gran % (Auto) Neut % (Auto) Lymph % (Auto) Ripley % (Auto) Eos % (Auto) Baso % (Auto) Immature Gran # (Auto) Neut # (Auto) Lymph # (Auto) Ripley # (Auto) Eos # (Auto) Baso # (Auto) ESR Sodium Potassium Chloride Carbon Dioxide Anion Gap BUN Creatinine Est Cr Clr Drug Dosing Est GFR ( Amer) Est GFR (Non-Af Amer) BUN/Creatinine Ratio Glucose POC Glucose 315 H* 184 H 88 Estimat Average Glucose Hemoglobin A1c Calcium Total Bilirubin AST ALT Alkaline Phosphatase C-Reactive Protein Total Protein Albumin Globulin Albumin/Globulin Ratio 08/11/19 08/11/19 08/11/19 04:49 04:49 04:49 WBC 13.90 H RBC 4.39 Hgb 13.1 Hct 39.7 MCV 90.4 MCH 29.8 MCHC 33.0 RDW Std Deviation 45.1 RDW Coeff of Sharri 13.7 Plt Count 418 H MPV 8.8 Immature Gran % (Auto) 0.4 Neut % (Auto) 73.5 Lymph % (Auto) 14.6 Ripley % (Auto) 10.6 Eos % (Auto) 0.6 Baso % (Auto) 0.3 Immature Gran # (Auto) 0.05 H Neut # (Auto) 10.21 H Lymph # (Auto) 2.03 Ripley # (Auto) 1.48 H Eos # (Auto) 0.09 Baso # (Auto) 0.04 ESR Sodium 140 Potassium 3.4 L Chloride 108 H Carbon Dioxide 26 Anion Gap 6.0 BUN 12 Creatinine 0.40 L Est Cr Clr Drug Dosing 98.9 Est GFR ( Amer) 111.6 Est GFR (Non-Af Amer) 96.3 BUN/Creatinine Ratio 29.1 H Glucose 85 POC Glucose Estimat Average Glucose 220 Hemoglobin A1c 9.3 H Calcium 8.1 L Total Bilirubin 0.9 AST 12 L ALT 13 Alkaline Phosphatase 52 C-Reactive Protein Total Protein 6.2 L Albumin 2.2 L Globulin 4.0 Albumin/Globulin Ratio 0.6 L 08/11/19 08:16 WBC RBC Hgb Hct MCV MCH MCHC RDW Std Deviation RDW Coeff of Sharri Plt Count MPV Immature Gran % (Auto) Neut % (Auto) Lymph % (Auto) Ripley % (Auto) Eos % (Auto) Baso % (Auto) Immature Gran # (Auto) Neut # (Auto) Lymph # (Auto) Ripley # (Auto) Eos # (Auto) Baso # (Auto) ESR Sodium Potassium Chloride Carbon Dioxide Anion Gap BUN Creatinine Est Cr Clr Drug Dosing Est GFR ( Amer) Est GFR (Non-Af Amer) BUN/Creatinine Ratio Glucose POC Glucose 89 Estimat Average Glucose Hemoglobin A1c Calcium Total Bilirubin AST ALT Alkaline Phosphatase C-Reactive Protein Total Protein Albumin Globulin Albumin/Globulin Ratio Micro Results: 08/10/19 13:10 Aerobic Blood Culture - Pending Blood Anaerobic Blood Culture - Pending 08/10/19 13:10 Aerobic Blood Culture - Pending Blood Anaerobic Blood Culture - Pending - Risk Factors for Resistance Risk Factors for Antimicrobial Resistance: * None - Recent Pertinent Medications Recent Pertinent Medications/Risk Factors for Insulin Resist: Outpatient Anti-diabetic Regimen: * Jardiance 25 mg PO daily * Janumet ER 50-1000 mg 2 tabs PO daily * Levemir 8 units SQ HS * A1c = 9.3% today (previously 5.7% in January 2018) The patient is currently receiving: * Basal insulin: Lantus 10 units x 1 * Correctional Insulin: Novolog Correction per scale ACHS Goal Range: Low 120 mg/dL - High 150 mg/dL Correction Factor: 25 mg/dL/unit * Prandial insulin: Per carb ratio of 1 unit per 10 grams CHO consumed Risk Factors for Insulin Resistance: * Infection: Osteomyelitis on Vancomycin and Cefepime * Diet: T2DM - Assessment * 84 yo F admitted secondary to L hand swelling and pain * Has been worsening for 2 days but thumbs have been itchy for years and 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 * Suspected cellulitis of L hand secondary to peripheral neuropathy/carpel tunnel * Xrays of both hands show "osseous dissolution which is highly suspicious for osteomyelitis" * Patient did present with a fever of 37.8C, leukocytosis of 16.7K, SCr of 0.57 (baseline) * Initial ESR and CRP were elevated at 76 and 0.31, respectively * In terms of glycemic management: * Patient's A1c is elevated from 2018 at 9.3% showing poorly controlled T2DM * It appears that patient has been on home anti-diabetic regimen for about a year now * BSG was elevated upon admission at 235 mg/dL * Fasting BSG this AM was 89 mg/dL following a 10 unit Lantus dose last evening - Plan ANTIMICROBIAL THERAPY Vancomycin IV * Loading dose: 1500 mg (22 mg/kg) * Maintenance dose: 1000 mg IV (15 mg/kg) every 12 hours * Goal trough: 15 to 20 mcg/mL * Trough level ordered for tomorrow afternoon prior to 4th maintenance dose to reflect steady state levels Cefepime * 2 g IV every 8 hours is appropriate for indication and renal function INPATIENT GLYCEMIC CONTROL: Oral Agents * Hold outpatient oral diabetes medications. Basal Insulin * Lantus 6 units SQ HS Bolus Insulin * NovoLog per scale ACHS or Q6hrs while NPO * Goal Range: Low 120 mg/dL - High 150 mg/dL * Correction Factor: 25 mg/dL/unit * Nutritional / Prandial insulin per carb ratio of 1 unit per 10 grams CHO consumed RECOMMENDATIONS FOR DISCHARGE: * Pending at this time * Please note that the plan above was derived based on current level of insulin resistance and hospital stress. These recommendations are appropriate for inpatient admission only. Plan of care upon discharge will need to be reassessed to avoid potential outpatient hypo/hyperglycemia. Pharmacy will follow patient and adjust orders on a daily basis. Thank you for allowing us to participate in this patients care.
--- NOTE | 2019-08-11 15:57 | Electrocardiogram Report ---
Test Reason : Blood Pressure : / mmHG Vent. Rate : 102 BPM Atrial Rate : 102 BPM P-R Int : 130 ms QRS Dur : 112 ms QT Int : 398 ms P-R-T Axes : 048 162 -21 degrees QTc Int : 518 ms Sinus tachycardia Right bundle branch block Left posterior fascicular block Bifascicular block T wave abnormality, consider inferior ischemia Abnormal ECG When compared with ECG of 09-FEB-2019 18:59, No significant change was found Confirmed by Edwin Joseph ([id number]) on 08/11/2019 3:57:01 PM Referred By: REFERRED SELF Confirmed By:Edwin Joseph
--- NOTE | 2019-08-11 16:59 | Hospitalist Progress Note ---
Date of Service August 11, 2019 Assessment & Plan (1) Cellulitis of hand: Suspect due to peripheral neuropathy (although patient reports normal sensation this appears difficult to believe given the amount of her thumb she has removed) Continue vanc + cefepime for broad spectrum coverage in setting of unknown duration of illness and HbA1C. Elevate left hand. Blood cultures ngtd (2) Osteomyelitis: Vancomycin + Cefepime as above. Consulted orthopedics - may want MRI before surgical determination (3) Tinea manuum: Suspected. Start terbinafine cream pending orthopedic and wound consults. Likely will need oral terbinafine although can defer this until after consults. (4) Hypertension: Hold losartan 25mg PO daily for mild hypotension, MAP is acceptable (5) Aortic stenosis: Known severe , mod AR. Pt reports planning on TAVR on August 16. Surgery may have to be delayed as she will still be on antibiotics for current infection at that time. (6) Mitral regurgitation: noted history of this. As above. (7) Chronic diastolic CHF (congestive heart failure): Noted history of this although not on Lasix, suspect related to valvular disease as above Continue metoprolol succinate and losartan. (8) Type 2 diabetes mellitus: Pt reports complication of peripheral neuropathy. Consult pharmacy glycemic control for basal bolus insulin regimen (stop home meds) HbA1C 9.3%. (9) DVT prophylaxis: Lovenox 40mg SQ daily Admission and Anticipated Discharge Date Admission Date: August 10, 2019 Subjective Ms. Harrington does not have complaints. Her thumbs are not particularly painful ROS Constitutional: no chills, aches, sweats or fever Respiratory: no sob,cough, sputum, or wheezing Cardiac: no chest pain, palpitations, edema, orthopnea or lightheadedness GI: no abdominal pain, nausea, vomiting, diarrhea or constipation : no dysuria or hesitancy Extremities: no joint pain or weakness Skin: no rash All other systems reviewed and negative Physical Exam Physical Exam: General: no distress Eyes: normal inspection, PERLL Respiratory: chest non tender, clear to auscultation, normal breath sounds, no respiratory distress, no accessory muscle use Cardiac: regular rate and rhythm, no rub or gallop, no murmur, no edema, no jvd GI/: active bowel sounds, no abd pain or tenderness, soft, non distended Extremities: normal range of motion, normal strength, non tender Neuro/Psych: alert and oriented x 3, normal mood and affect Skin: normal color, dry, left hand erythema and edema with excoriation (fungal infection?) around thumb which is shortened and scabbed on the top. Similar on the right thumb but no erythema/edema Results & Data Results & Data ([facility]) Vital Signs (Past 12 Hours) Vital Signs Temp Pulse Resp BP Pulse Ox 08/11/19 15:21 36.4 C L 95 H 16 94/54 L 93 08/11/19 07:26 37.2 C 98 H 18 119/71 95 PG Care Time/CCT Total # of Minutes Spent Total Time Spent with Patient: Total time spent is greater than 50% in coordination of care (as documented) at patient's floor/unit and/or counseling patient: Coding Level of Care Code 16114 Subseq Hosp Care Lvl 3 Diagnoses Cellulitis of hand L03.119 Osteomyelitis M86.149 Laterality: unspecified laterality Osteomyelitis location: hand Osteomyelitis type: other acute Tinea manuum B35.2 Hypertension I10 Hypertension type: essential hypertension Aortic stenosis I35.0 Cardiac valve disease etiology: etiology unspecified Mitral regurgitation I34.0 Cardiac valve disease etiology: etiology unspecified Chronic diastolic CHF (congestive heart failure) I50.32 Type 2 diabetes mellitus E11.9 DVT prophylaxis Z29.9 (1) Osteomyelitis Laterality: unspecified laterality Osteomyelitis location: hand Osteomyelitis type: other acute Qualified Code(s): M86.149 - Other acute osteomyelitis, unspecified hand (2) Hypertension Hypertension type: essential hypertension Qualified Code(s): I10 - Essential (primary) hypertension (3) Aortic stenosis Cardiac valve disease etiology: etiology unspecified Qualified Code(s): I35.0 - Nonrheumatic aortic (valve) stenosis (4) Mitral regurgitation Cardiac valve disease etiology: etiology unspecified Qualified Code(s): I34.0 - Nonrheumatic mitral (valve) insufficiency
--- NOTE | 2019-08-11 20:39 | Orthopedic Consultation ---
Date of Consultation August 11, 2019 Assessment & Plan (1) Cellulitis of hand: Continue with IV abx at this time, ice/elevation of LUE, NWB LUE, trend inflammatory labs, will continue to monitor, if symptoms persist or worsen recommend MRI. Thank you for the consultation. History of Present Illness Reason for Consultation: Left hand cellulitis Attending Physician: Donnie Fagan MD History of Present Illness The patient is a 84 year old female with PMHx for DM, peripheral neuropathy, , MR, CHF with acute onset of left hand pain and swelling. The patient is a poor historian and a majority of the HPI obtained from chart. The patient reports two day history of pain and swelling to left hand. 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 Patient reports picking at the skin of both thumbs. Currently denies fevers, chills, nausea, vomiting, SOB or CP. Allergies Allergy/AdvReac Type Severity Reaction Status Date / Time No Known Allergies Allergy Mild NONE Verified 02/09/19 19:29 Home Medications Home Medications Medication Instructions Recorded Confirmed Type Levemir U-100 Insulin 8 unit SUBCUT HS 01/09/18 08/10/19 History sitagliptin-metformin 2 tab PO DAILY 01/09/18 08/10/19 History cholecalciferol (vitamin D3) 2,000 units PO DAILY #60 cap 01/15/18 08/10/19 Rx [Vitamin D3] Multivitamin 50 Plus 1 tab PO DAILY 02/11/18 08/10/19 History PreserVision AREDS 1 tab PO BID 02/11/18 08/10/19 History aspirin [Ecotrin Low Strength] 81 mg PO Q OTHER DAY 02/11/18 08/10/19 History hypromellose 1 drp OPHTHALMIC (EYE) QID PRN 02/11/18 08/10/19 History metoprolol succinate 12.5 mg PO DAILY 02/09/19 08/10/19 History Jardiance 25 mg PO DAILY 03/23/19 08/10/19 History pantoprazole 40 mg PO DAILY 03/23/19 08/10/19 History losartan 25 mg PO DAILY 08/10/19 08/10/19 History Patient History Medical History Aortic stenosis Aortic stenosis Arthritis (Chronic) Bifascicular bundle branch block Chronic diastolic CHF (congestive heart failure) Diabetes (Chronic) Left shoulder pain Mitral regurgitation Pericardial effusion Sinus tachycardia Surgical History Status post cholecystectomy Status post shoulder surgery bilateral Family History Other Family history non-contributory Social History Preferred Language: [place] Communication Ability: Effective Visual Impairment: No Limitations Hearing Ability: Normal Pediatric Geneticist Required: No Beliefs That Will Affect Care: None marital status: Single Current Living Situation: Family Current Living Situation Comment: sister Other Information That Helps Us Care for You: No Feels Safe at Home: Yes Smoking Status: Former smoker Hx Alcohol Use: No Hx Substance Use: No Review of Systems Review of Systems: All systems reviewed & are unremarkable except as noted in HPI & below Constitutional: as per Subjective / HPI Physical Exam Physical Exam: LUE NVSI actively moves all 5 digits, first digit ulceration with eschar without purulence/drainage. +volar and dorsal edema and erythema, compartments soft and compressible. Constitutional: WD/WN, vitals as above Results & Data ([facility]) Vital Signs (Past 12 Hours) Vital Signs Temp Pulse Resp BP Pulse Ox 08/11/19 15:21 36.4 C L 95 H 16 94/54 L 93 Laboratory Results 08/11/19 08/11/19 08/11/19 Range/Units 17:17 12:17 08:16 WBC (4.8-10.8) K/uL RBC (4.2-5.4) M/uL Hgb (12.0-16.0) g/dL Hct (37-47) % MCV (80-100) fL MCH (25-34) pg MCHC (32-36) g/dL RDW Std Deviation (36.4-46.3) fL RDW Coeff of Sharri (11.5-14.5) % Plt Count (130-400) K/uL MPV (7.4-10.4) fL Immature Gran % (Auto) % Neut % (Auto) % Lymph % (Auto) % Ward % (Auto) % Eos % (Auto) % Baso % (Auto) % Immature Gran # (Auto) (0.00-0.02) K/uL Neut # (Auto) (1.4-6.5) K/uL Lymph # (Auto) (1.2-3.4) K/uL Ward # (Auto) (0.11-0.59) K/uL Eos # (Auto) (0-0.5) K/uL Baso # (Auto) (0-0.2) K/uL Sodium (136-145) mmol/L Potassium (3.5-5.1) mmol/L Chloride (98-107) mmol/L Carbon Dioxide (21-32) mmol/L Anion Gap (3-11) BUN (7-18) mg/dl Creatinine (0.6-1.2) mg/dl Est Cr Clr Drug Dosing ml/min Est GFR ( Amer) Est GFR (Non-Af Amer) BUN/Creatinine Ratio (10-20) Glucose (70-99) mg/dl POC Glucose 131 H 169 H 89 (70-99) mg/dl Estimat Average Glucose mg/dl Hemoglobin A1c (4.5-5.6) % Calcium (8.5-10.1) mg/dl Total Bilirubin (0.2-1) mg/dl AST (15-37) U/L ALT (12-78) U/L Alkaline Phosphatase (45-117) U/L C-Reactive Protein (0-0.29) mg/dl Total Protein (6.4-8.2) gm/dl Albumin (3.4-5.0) gm/dl Globulin (2.5-4.0) gm/dl Albumin/Globulin Ratio (0.9-2) 08/11/19 08/11/19 08/11/19 Range/Units 04:49 04:49 04:49 WBC 13.90 H (4.8-10.8) K/uL RBC 4.39 (4.2-5.4) M/uL Hgb 13.1 (12.0-16.0) g/dL Hct 39.7 (37-47) % MCV 90.4 (80-100) fL MCH 29.8 (25-34) pg MCHC 33.0 (32-36) g/dL RDW Std Deviation 45.1 (36.4-46.3) fL RDW Coeff of Sharri 13.7 (11.5-14.5) % Plt Count 418 H (130-400) K/uL MPV 8.8 (7.4-10.4) fL Immature Gran % (Auto) 0.4 % Neut % (Auto) 73.5 % Lymph % (Auto) 14.6 % Ward % (Auto) 10.6 % Eos % (Auto) 0.6 % Baso % (Auto) 0.3 % Immature Gran # (Auto) 0.05 H (0.00-0.02) K/uL Neut # (Auto) 10.21 H (1.4-6.5) K/uL Lymph # (Auto) 2.03 (1.2-3.4) K/uL Ward # (Auto) 1.48 H (0.11-0.59) K/uL Eos # (Auto) 0.09 (0-0.5) K/uL Baso # (Auto) 0.04 (0-0.2) K/uL Sodium 140 (136-145) mmol/L Potassium 3.4 L (3.5-5.1) mmol/L Chloride 108 H (98-107) mmol/L Carbon Dioxide 26 (21-32) mmol/L Anion Gap 6.0 (3-11) BUN 12 (7-18) mg/dl Creatinine 0.40 L (0.6-1.2) mg/dl Est Cr Clr Drug Dosing 98.9 ml/min Est GFR ( Amer) 111.6 Est GFR (Non-Af Amer) 96.3 BUN/Creatinine Ratio 29.1 H (10-20) Glucose 85 (70-99) mg/dl POC Glucose (70-99) mg/dl Estimat Average Glucose 220 mg/dl Hemoglobin A1c 9.3 H (4.5-5.6) % Calcium 8.1 L (8.5-10.1) mg/dl Total Bilirubin 0.9 (0.2-1) mg/dl AST 12 L (15-37) U/L ALT 13 (12-78) U/L Alkaline Phosphatase 52 (45-117) U/L C-Reactive Protein (0-0.29) mg/dl Total Protein 6.2 L (6.4-8.2) gm/dl Albumin 2.2 L (3.4-5.0) gm/dl Globulin 4.0 (2.5-4.0) gm/dl Albumin/Globulin Ratio 0.6 L (0.9-2) 08/11/19 08/10/19 08/10/19 Range/Units 04:05 23:28 20:49 WBC (4.8-10.8) K/uL RBC (4.2-5.4) M/uL Hgb (12.0-16.0) g/dL Hct (37-47) % MCV (80-100) fL MCH (25-34) pg MCHC (32-36) g/dL RDW Std Deviation (36.4-46.3) fL RDW Coeff of Sharri (11.5-14.5) % Plt Count (130-400) K/uL MPV (7.4-10.4) fL Immature Gran % (Auto) % Neut % (Auto) % Lymph % (Auto) % Ward % (Auto) % Eos % (Auto) % Baso % (Auto) % Immature Gran # (Auto) (0.00-0.02) K/uL Neut # (Auto) (1.4-6.5) K/uL Lymph # (Auto) (1.2-3.4) K/uL Ward # (Auto) (0.11-0.59) K/uL Eos # (Auto) (0-0.5) K/uL Baso # (Auto) (0-0.2) K/uL Sodium (136-145) mmol/L Potassium (3.5-5.1) mmol/L Chloride (98-107) mmol/L Carbon Dioxide (21-32) mmol/L Anion Gap (3-11) BUN (7-18) mg/dl Creatinine (0.6-1.2) mg/dl Est Cr Clr Drug Dosing ml/min Est GFR ( Amer) Est GFR (Non-Af Amer) BUN/Creatinine Ratio (10-20) Glucose (70-99) mg/dl POC Glucose 88 184 H 315 H* (70-99) mg/dl Estimat Average Glucose mg/dl Hemoglobin A1c (4.5-5.6) % Calcium (8.5-10.1) mg/dl Total Bilirubin (0.2-1) mg/dl AST (15-37) U/L ALT (12-78) U/L Alkaline Phosphatase (45-117) U/L C-Reactive Protein (0-0.29) mg/dl Total Protein (6.4-8.2) gm/dl Albumin (3.4-5.0) gm/dl Globulin (2.5-4.0) gm/dl Albumin/Globulin Ratio (0.9-2) 05/25/20 Range/Units 13:10 WBC (4.8-10.8) K/uL RBC (4.2-5.4) M/uL Hgb (12.0-16.0) g/dL Hct (37-47) % MCV (80-100) fL MCH (25-34) pg MCHC (32-36) g/dL RDW Std Deviation (36.4-46.3) fL RDW Coeff of Sharri (11.5-14.5) % Plt Count (130-400) K/uL MPV (7.4-10.4) fL Immature Gran % (Auto) % Neut % (Auto) % Lymph % (Auto) % Ward % (Auto) % Eos % (Auto) % Baso % (Auto) % Immature Gran # (Auto) (0.00-0.02) K/uL Neut # (Auto) (1.4-6.5) K/uL Lymph # (Auto) (1.2-3.4) K/uL Ward # (Auto) (0.11-0.59) K/uL Eos # (Auto) (0-0.5) K/uL Baso # (Auto) (0-0.2) K/uL Sodium (136-145) mmol/L Potassium (3.5-5.1) mmol/L Chloride (98-107) mmol/L Carbon Dioxide (21-32) mmol/L Anion Gap (3-11) BUN (7-18) mg/dl Creatinine (0.6-1.2) mg/dl Est Cr Clr Drug Dosing ml/min Est GFR ( Amer) Est GFR (Non-Af Amer) BUN/Creatinine Ratio (10-20) Glucose (70-99) mg/dl POC Glucose (70-99) mg/dl Estimat Average Glucose mg/dl Hemoglobin A1c (4.5-5.6) % Calcium (8.5-10.1) mg/dl Total Bilirubin (0.2-1) mg/dl AST (15-37) U/L ALT (12-78) U/L Alkaline Phosphatase (45-117) U/L C-Reactive Protein 0.31 H (0-0.29) mg/dl Total Protein (6.4-8.2) gm/dl Albumin (3.4-5.0) gm/dl Globulin (2.5-4.0) gm/dl Albumin/Globulin Ratio (0.9-2) Diagnostic Findings XR hand LT min 3V routine CLINICAL HISTORY: 84 years-old Female presenting with thumb infection. TECHNIQUE: Frontal, oblique, and lateral views of the left hand were obtained. COMPARISON: None. FINDINGS: Extensive soft tissue swelling involving the hand in all of the fingers. Osseous dissolution of the distal phalanx of the first finger with only a minimal portion of the base of the distal phalanx remaining at the interphalangeal joint. There may also be focal osteopenia on a background of diffuse osteopenia of the head of the proximal phalanx of the first finger. No radiographic evidence of soft tissue emphysema. Degenerative changes at the carpus and several interphalangeal joints. IMPRESSION: 1. Osseous dissolution of the distal phalanx of the first finger with possible focal osteopenia of the head of the proximal phalanx. In the setting of infection, these findings are highly suspicious for osteomyelitis with possible involvement of the proximal phalanx. 2. Diffuse soft tissue swelling may represent cellulitis.
[2019-08-11] MEDS ORDERED: INSULIN GLARGINE SOLOSTAR 100 UNITS/ML 3 ML PEN SC SCH (21:00)
[2019-08-11] MEDS: ENOXAPARIN INJ 40 MG/0.4 ML SYR SQ SCH (21:05)
[2019-08-12] MEDS: VANCOMYCIN HCL 1,000 MG in SODIUM CHLORIDE 0.9% 250 ML IV SCH ×3 (02:47→21:36)
[2019-08-12] MEDS: CEFEPIME 2,000 MG in SYRINGE 7.5 ML IV SCH ×3 (05:05→21:35)
[2019-08-12] MEDS: METOPROLOL SUCC 25MG EXT REL TAB PO SCH (08:34)
[2019-08-12] MEDS: TERBINAFINE CR 30 GM TUBE EXT SCH (08:34)
[2019-08-12] MEDS: CEROVITE ADV FORMULA TAB PO SCH (08:34)
[2019-08-12] MEDS: CHOLECALCIFEROL 1,000 UNITS 25 MCG TAB PO SCH (08:34)
[2019-08-12] MEDS: PANTOprazole 40 MG TAB PO SCH (08:35)
[2019-08-12] MEDS: INSULIN ASPART 100 UNITS/ML 3 ML PEN SC SCH ×4 (08:39→21:34)
[2019-08-12 09:17] LABS: Basophils # (auto) 0.05 K/uL (0-0.2); Basophils % (auto) 0.4 %; Eosinophils % (auto) 1.7 %; Immature Granulocytes # (auto) 0.07 K/uL (0.00-0.02); Immature Granulocytes % (auto) 0.6 %; Lymphocytes # (auto) 1.76 K/uL (1.2-3.4); Lymphocytes % (auto) 15.3 %; Mean Corpuscular Hemoglobin 29.5 pg (25-34); Mean Corpuscular Hgb Conc 32.5 g/dL (32-36); Mean Corpuscular Volume 90.9 fL (80-100); Mean Platelet Volume 9.2 fL (7.4-10.4); Monocytes # (auto) 0.94 K/uL (0.11-0.59); Monocytes % (auto) 8.2 %; Neutrophils % (auto) 73.8 %; Platelet Count 433 K/uL (130-400); RDW Coefficient of Variation 13.9 % (11.5-14.5); RDW Standard Deviation 45.8 fL (36.4-46.3); White Blood Count 11.52 K/uL (4.8-10.8)
[2019-08-12 09:19] LABS: Albumin Level 2.1 gm/dl (3.4-5.0); BUN Creatinine Ratio 36.2 (10-20); C Reactive Protein 0.77 mg/dl (0-0.29); Calcium 8.3 mg/dl (8.5-10.1); Est GFR (Non-African American) 94.1; Potassium 3.8 mmol/L (3.5-5.1)
[2019-08-12 09:22] LABS: Albumin Globulin Ratio 0.5 (0.9-2); Bilirubin,Total 0.4 mg/dl (0.2-1); Globulin 4.4 gm/dl (2.5-4.0); Total Protein 6.5 gm/dl (6.4-8.2)
--- NOTE | 2019-08-12 10:45 | Pharmacy Report ---
Pharmacy Abx Dose Short Note - Date of Service August 12, 2019 - Assessment & Plan Assessment * 84 year old F receiving Vancomycin and Cefepime for treatment of L hand swelling and pain * Had been worsening for 2 days prior to admission but has a 4 year h/o erosion of b/l thumbs suspected to be from peripheral neuropathy * Xrays of both hands show "osseous dissolution which is highly suspicious for osteomyelitis" * Day #3 of antimicrobial therapy * Patient has been afebrile x 36 hrs, WBCs trending down since admission (16.7K --> 13.9K --> 11.5K), renal fxn is stable * Ortho plans on continuing IV abx and will get MRI if symptoms persist or worsen * Ordered a trough level for the incorrect time yesterday at 0530 - ignore this trough as it is grossly inaccurate Plan Vancomycin * Trough level of 10 mcg/mL is subtherapeutic * Change to 1000 mg IV every 8 hours * Goal trough level: 15 to 20 mcg/mL * Trough level ordered for tomorrow afternoon to reflect steady state levels * If therapeutic troughs become difficult to obtain would recommend transition to daptomycin which would be once daily and help facilitate discharge Cefepime (pharmacy not consulted) * 2000 mg IV every 8 hours is appropriate for indication and renal function Pharmacy will continue to follow and will adjust dose/frequency as necessary. Thank you.
--- NOTE | 2019-08-12 12:05 | Pharmacy Report ---
Pharmacy Glycemic Short Note 2 - Date of Service August 12, 2019 - Glycemic Short BSG Results (Last 24 hours): OUTPATIENT ANTIDIABETIC REGIMEN: * Jardiance 25 mg PO daily * Janumet ER 50-1000 mg 2 tabs PO daily * Levemir 8 units SQ HS * A1c = 9.3% on 08/11/2019 ASSESSMENT: 08/11: * Patient used total of 24 units of insulin yesterday * 6 units basal * 18 units bolus * BSGs ranged 88-170 mg/dL, acceptable * Fasting BSG this AM is 119 mg/dL, will increase basal to home dose of 8 units HS * Will adjust goal range to 110-140 mg/dL to assist with post-prandial BSGs 08/10: * Patient's A1c is elevated from 2018 at 9.3% showing poorly controlled T2DM * It appears that patient has been on home anti-diabetic regimen for about a year now * BSG was elevated upon admission at 235 mg/dL * Fasting BSG this AM was 89 mg/dL following a 10 unit Lantus dose last evening PLAN FOR INPATIENT GLYCEMIC CONTROL: * Hold outpatient oral diabetes medications * Basal insulin - increased * Lantus 8 units SQ HS * Bolus insulin * NovoLog per scale ACHS or Q6hrs while NPO * Goal Range: Low 110 mg/dL - High 140 mg/dL * Correction Factor: 25 mg/dL/unit * Nutritional / Prandial insulin per carb ratio of 1 unit per 9 grams CHO consumed PLAN FOR DISCHARGE: * Still pending at this time but based on most recent A1c of > 9% patient likely to require an increase in basal insulin regimen
[2019-08-12] MEDS ORDERED: VANCOMYCIN TROUGH ONE (13:30)
--- NOTE | 2019-08-12 15:08 | Orthopedic Progress Note ---
Date of Service August 12, 2019 Assessment & Plan (1) Cellulitis of hand: Continue with IV abx at this time, no surgical intervention needed at this time, Ice/elevation of LUE, NWIsaac LUE, trend inflammatory labs, will continue to monitor, if symptoms persist or worsen recommend MRI Patient stating that she would like to eventually have the left thumb amputated to a certain point due to the chronic nature. I will discuss this with our hand team. Admission and Anticipated Discharge Date Admission Date: August 10, 2019 Subjective Patient lying in bed. Awake and alert. No complaints at this time. Physical Exam Physical Exam: Overall her hand is looking better today. She has less swelling and less erythema. No changes to the left thumb with a chronic-looking appearance to it. Finger range of motion is better today and her wrist range of motion continues to remain intact without discomfort. Catheter refills less than 2 seconds. Results & Data ([facility]) Vital Signs (Past 12 Hours) Vital Signs Temp Pulse Resp BP Pulse Ox 08/12/19 07:37 36.8 C 95 H 16 103/54 L 94
--- NOTE | 2019-08-12 16:49 | Electrocardiogram Report ---
Test Reason : Blood Pressure : / mmHG Vent. Rate : 094 BPM Atrial Rate : 094 BPM P-R Int : 134 ms QRS Dur : 108 ms QT Int : 382 ms P-R-T Axes : 076 140 017 degrees QTc Int : 477 ms Sinus rhythm with marked sinus arrhythmia Right axis deviation Incomplete right bundle branch block Right ventricular hypertrophy Abnormal ECG When compared with ECG of 10-AUG-2019 22:52, Nonspecific T wave abnormality has replaced inverted T waves in Anterior leads Confirmed by Edwin Joseph ([id number]) on 08/12/2019 4:49:27 PM Referred By: REFERRED SELF Confirmed By:Edwin Joseph
--- NOTE | 2019-08-12 17:51 | Hospitalist Progress Note ---
Date of Service August 12, 2019 Assessment & Plan (1) Cellulitis of hand: Continue vanc + cefepime for broad spectrum coverage in setting of unknown duration of illness and HbA1C. Elevate left hand. Blood cultures ngtd (2) Osteomyelitis: Vancomycin + Cefepime as above. Consulted orthopedics - no surgery for now, trend inflammatory markers Sed rate 76 on admission, now 80. CRP 0.31 on admission, now 0.77 (3) Hypertension: Can resume losartan as blood pressures have improved (4) Aortic stenosis: Known severe , mod AR. Pt reports planning on TAVR on August 16. Surgery may have to be delayed as she will still be on antibiotics for current infection at that time. Discussed with sister who is very concerned about delaying the surgery. Will touch base with [place] cardiologists tomorrow and discuss options for patient going forward (5) Mitral regurgitation: noted history of this. As above. (6) Chronic diastolic CHF (congestive heart failure): Noted history of this although not on Lasix, suspect related to valvular disease as above Continue metoprolol succinate and losartan. (7) Type 2 diabetes mellitus: Pt reports complication of peripheral neuropathy. Consult pharmacy glycemic control for basal bolus insulin regimen (stop home meds) HbA1C 9.3%. (8) DVT prophylaxis: Lovenox 40mg SQ daily Sister updated via phone Admission and Anticipated Discharge Date Admission Date: August 10, 2019 Subjective Ms. Harrington has no complaints. Her hand is not particularly painful to her. ROS Constitutional: no chills, aches, sweats or fever Respiratory: no sob,cough, sputum, or wheezing Cardiac: no chest pain, palpitations, edema, orthopnea or lightheadedness GI: no abdominal pain, nausea, vomiting, diarrhea or constipation : no dysuria or hesitancy Extremities: no joint pain or weakness Skin: no rash All other systems reviewed and negative Physical Exam Physical Exam: General: no distress Eyes: normal inspection, PERLL Respiratory: chest non tender, clear to auscultation, normal breath sounds, no respiratory distress, no accessory muscle use Cardiac: regular rate and rhythm, no rub or gallop, no murmur, no edema, no jvd GI/: active bowel sounds, no abd pain or tenderness, soft, non distended Extremities: normal range of motion, normal strength, non tender Neuro/Psych: alert and oriented x 3, normal mood and affect Skin: normal color, dry, improving erythema and edema of the left hand Results & Data Results & Data ([facility]) Vital Signs (Past 12 Hours) Vital Signs Temp Pulse Resp BP BP Pulse Ox 08/12/19 15:31 36.6 C 93 H 18 110/63 92 08/12/19 07:37 36.8 C 95 H 16 103/54 L 94 PG Care Time/CCT Total # of Minutes Spent Total Time Spent with Patient: Total time spent is greater than 50% in coordination of care (as documented) at patient's floor/unit and/or counseling patient: Coding Level of Care Code 34896 Subseq Hosp Care Lvl 2 Diagnoses Cellulitis of hand L03.119 Osteomyelitis M86.149 Laterality: unspecified laterality Osteomyelitis location: hand Osteomyelitis type: other acute Hypertension I10 Hypertension type: essential hypertension Aortic stenosis I35.0 Cardiac valve disease etiology: etiology unspecified Mitral regurgitation I34.0 Cardiac valve disease etiology: etiology unspecified Chronic diastolic CHF (congestive heart failure) I50.32 Type 2 diabetes mellitus E11.9 DVT prophylaxis Z29.9 (1) Aortic stenosis Cardiac valve disease etiology: etiology unspecified Qualified Code(s): I35.0 - Nonrheumatic aortic (valve) stenosis (2) Mitral regurgitation Cardiac valve disease etiology: etiology unspecified Qualified Code(s): I34.0 - Nonrheumatic mitral (valve) insufficiency (3) Hypertension Hypertension type: essential hypertension Qualified Code(s): I10 - Essential (primary) hypertension (4) Osteomyelitis Laterality: unspecified laterality Osteomyelitis location: hand Osteomyelitis type: other acute Qualified Code(s): M86.149 - Other acute osteomyelitis, unspecified hand
[2019-08-12] MEDS: INSULIN GLARGINE SOLOSTAR 100 UNITS/ML 3 ML PEN SC SCH (21:33)
[2019-08-12] MEDS: ENOXAPARIN INJ 40 MG/0.4 ML SYR SQ SCH (21:37)
[2019-08-13] MEDS: CEFEPIME 2,000 MG in SYRINGE 7.5 ML IV SCH ×3 (05:59→21:16)
[2019-08-13] MEDS: VANCOMYCIN HCL 1,000 MG in SODIUM CHLORIDE 0.9% 250 ML IV SCH ×3 (05:59→21:15)
[2019-08-13 06:04] LABS: Basophils # (auto) 0.04 K/uL (0-0.2); Basophils % (auto) 0.5 %; Eosinophils # (auto) 0.26 K/uL (0-0.5); Eosinophils % (auto) 3.3 %; Hematocrit (blood only) 38.4 % (37-47); Hemoglobin 12.6 g/dL (12.0-16.0); Immature Granulocytes # (auto) 0.03 K/uL (0.00-0.02); Immature Granulocytes % (auto) 0.4 %; Lymphocytes # (auto) 1.79 K/uL (1.2-3.4); Lymphocytes % (auto) 22.9 %; Mean Corpuscular Hemoglobin 29.7 pg (25-34); Mean Corpuscular Hgb Conc 32.8 g/dL (32-36); Mean Corpuscular Volume 90.6 fL (80-100); Mean Platelet Volume 8.7 fL (7.4-10.4); Monocytes # (auto) 0.63 K/uL (0.11-0.59); Monocytes % (auto) 8.1 %; Neutrophils # (auto) 5.06 K/uL (1.4-6.5); Neutrophils % (auto) 64.8 %; Platelet Count 419 K/uL (130-400); RDW Coefficient of Variation 13.7 % (11.5-14.5); RDW Standard Deviation 45.6 fL (36.4-46.3); Red Blood Count 4.24 M/uL (4.2-5.4); White Blood Count 7.81 K/uL (4.8-10.8)
[2019-08-13 06:42] LABS: BUN Creatinine Ratio 29.2 (10-20); Calcium 8.2 mg/dl (8.5-10.1); Est GFR (African American) 116.6; Est GFR (Non-African American) 100.6; Potassium 3.3 mmol/L (3.5-5.1)
[2019-08-13] MEDS: METOPROLOL SUCC 25MG EXT REL TAB PO SCH (08:29)
[2019-08-13] MEDS: PANTOprazole 40 MG TAB PO SCH (08:30)
[2019-08-13] MEDS: CEROVITE ADV FORMULA TAB PO SCH (08:30)
[2019-08-13] MEDS: CHOLECALCIFEROL 1,000 UNITS 25 MCG TAB PO SCH (08:30)
[2019-08-13] MEDS: ASPIRIN 81 MG ECTAB PO SCH (08:30)
[2019-08-13] MEDS: INSULIN ASPART 100 UNITS/ML 3 ML PEN SC SCH ×4 (08:31→20:58)
[2019-08-13] MEDS ORDERED: POTASSIUM CHLORIDE 20 MEQ TABCR PO STA (08:33)
--- NOTE | 2019-08-13 08:52 | Orthopedic Progress Note ---
Date of Service August 13, 2019 Assessment & Plan (1) Cellulitis of hand: Continue with IV abx at this time. Continue elevation as best as possible. I will discuss with Dr. Abernathy about possibility of distal tip thumb amputation this weekend since he is hydro station supervisor. With her current cellulitis and chronic appearing osteomyelitis of her distal thumb, I doubt that her TAVR will be done as scheduled. Patient stating that she would like to eventually have the left thumb amputated to a certain point due to the chronic nature. Admission and Anticipated Discharge Date Admission Date: August 10, 2019 Subjective Patient sitting in her chair at the bedside eating her breakfast. No new complaints. Worried about getting to her she for a planned TAVR. Discussed that she may not be able to have that just yet due to her infection. We discussed the possibility of thumb amputation. Her cellulitis continues to improve but her thumb continues to look about the same or developing a little bit more dry necrosis. Physical Exam Physical Exam: Left hand continues to improve. Less erythema and swelling this morning. Continues to have a little better range of motion of her fingers. Her left thumb continues to be about the same. No drainage noted but she has areas going somewhat proximally that may look a little worse to me as far as necrosis. Results & Data ([facility]) Vital Signs (Past 12 Hours) Vital Signs Temp Pulse Resp BP Pulse Ox 08/13/19 07:25 36.8 C 71 16 119/73 92 08/12/19 23:06 37.0 C 99 H 16 118/57 L 93
[2019-08-13] MEDS: LOSARTAN POTASSIUM 25 MG TAB PO SCH (09:51)
[2019-08-13] MEDS ORDERED: VANCOMYCIN TROUGH ONE (13:30)
--- NOTE | 2019-08-13 15:18 | Pharmacy Report ---
Pharmacy Abx Dose Short Note - Date of Service August 13, 2019 - Assessment & Plan Assessment 84 year old F receiving Vancomycin for treatment of OM of 1st R finger. Day #4 of antimicrobial therapy. Laboratory Tests 08/13/19 13:23 Vancomycin Trough 14.8 Plan Vancomycin * Trough level of 14.8 mcg/mL is near-therapeutic. * Goal trough level for OM: 15 to 20 mcg/mL * Current trough is almost 15. Patient is elderly, repeated doses may cause further increase in trough level. Therefore, will continue with current dosing of Vancomycin 1000 mg IV q8h without further increasing the dose. * Trough Vanc level ordered for: 08/14/19 before dose at 1400 to confirm trough is adequate. Pharmacy will continue to follow and will adjust dose/frequency as necessary. Thank you.
--- NOTE | 2019-08-13 16:17 | Hospitalist Progress Note ---
Date of Service August 13, 2019 Assessment & Plan (1) Cellulitis of hand: Continue vanc + cefepime Continue to Elevate left hand. Blood cultures ngtd Erythema and edema improving (2) Osteomyelitis: Vancomycin + Cefepime as above. Consulted orthopedics - may consider surgery this weekend Sed rate 76 on admission, now 83. (3) Hypertension: Continue losartan (4) Aortic stenosis: Known severe , mod AR. Pt reports planning on TAVR on August 16. Surgery may have to be delayed as she will still be on antibiotics for current infection at that time. Awaiting call back from [facility] to discuss rescheduling her procedure (5) Mitral regurgitation: noted history of this. As above. (6) Chronic diastolic CHF (congestive heart failure): Noted history of this although not on Lasix, suspect related to valvular disease as above Continue metoprolol succinate and losartan. (7) Type 2 diabetes mellitus: Pt reports complication of peripheral neuropathy. Consult pharmacy glycemic control for basal bolus insulin regimen (stop home meds) HbA1C 9.3%. Diabetes education (8) DVT prophylaxis: Lovenox 40mg SQ daily Admission and Anticipated Discharge Date Admission Date: August 10, 2019 Subjective Ms. Harrington's hand edema is improving and the redness is receding. She reports her hand feels a bit tight and stiff yet. She is very concerned about pushing back her TAVR. I did place a call to [facility] to discuss the procedure but have not received a call back yet. ROS Constitutional: no chills, aches, sweats or fever Respiratory: no sob,cough, sputum, or wheezing Cardiac: no chest pain, palpitations, edema, orthopnea or lightheadedness GI: no abdominal pain, nausea, vomiting, diarrhea or constipation : no dysuria or hesitancy Extremities: no joint pain or weakness Skin: see HPI All other systems reviewed and negative Physical Exam Physical Exam: General: no distress Eyes: normal inspection, PERLL Respiratory: chest non tender, clear to auscultation, normal breath sounds, no respiratory distress, no accessory muscle use Cardiac: regular rate and rhythm, no rub or gallop, no murmur, no edema, no jvd GI/: active bowel sounds, no abd pain or tenderness, soft, non distended Extremities: normal range of motion, normal strength, non tender Neuro/Psych: alert and oriented x 3, normal mood and affect Skin: normal color, dry, improving erythema and edema left hand Results & Data Results & Data ([facility]) Vital Signs (Past 12 Hours) Vital Signs Temp Pulse Resp BP Pulse Ox 08/13/19 15:17 36.8 C 90 18 106/68 95 08/13/19 07:25 36.8 C 71 16 119/73 92 PG Care Time/CCT Total # of Minutes Spent Total Time Spent with Patient: Total time spent is greater than 50% in coordination of care (as documented) at patient's floor/unit and/or counseling patient: Coding Level of Care Code 52588 Subseq Hosp Care Lvl 2 Diagnoses Cellulitis of hand L03.119 Osteomyelitis M86.149 Laterality: unspecified laterality Osteomyelitis location: hand Osteomyelitis type: other acute Hypertension I10 Hypertension type: essential hypertension Aortic stenosis I35.0 Cardiac valve disease etiology: etiology unspecified Mitral regurgitation I34.0 Cardiac valve disease etiology: etiology unspecified Chronic diastolic CHF (congestive heart failure) I50.32 Type 2 diabetes mellitus E11.9 DVT prophylaxis Z29.9 (1) Osteomyelitis Laterality: unspecified laterality Osteomyelitis location: hand Osteomyelitis type: other acute Qualified Code(s): M86.149 - Other acute osteomyelitis, unspecified hand (2) Hypertension Hypertension type: essential hypertension Qualified Code(s): I10 - Essential (primary) hypertension (3) Aortic stenosis Cardiac valve disease etiology: etiology unspecified Qualified Code(s): I35.0 - Nonrheumatic aortic (valve) stenosis (4) Mitral regurgitation Cardiac valve disease etiology: etiology unspecified Qualified Code(s): I34.0 - Nonrheumatic mitral (valve) insufficiency
[2019-08-13] MEDS: INSULIN GLARGINE SOLOSTAR 100 UNITS/ML 3 ML PEN SC SCH (20:57)
[2019-08-13] MEDS: ENOXAPARIN INJ 40 MG/0.4 ML SYR SQ SCH (20:59)
[2019-08-14] MEDS: CEFEPIME 2,000 MG in SYRINGE 7.5 ML IV SCH ×3 (05:22→21:37)
[2019-08-14] MEDS: VANCOMYCIN HCL 1,000 MG in SODIUM CHLORIDE 0.9% 250 ML IV SCH ×3 (05:22→21:36)
[2019-08-14 07:37] LABS: Basophils # (auto) 0.04 K/uL (0-0.2); Basophils % (auto) 0.6 %; Eosinophils # (auto) 0.26 K/uL (0-0.5); Hemoglobin 12.7 g/dL (12.0-16.0); Immature Granulocytes # (auto) 0.02 K/uL (0.00-0.02); Immature Granulocytes % (auto) 0.3 %; Lymphocytes # (auto) 1.63 K/uL (1.2-3.4); Lymphocytes % (auto) 25.3 %; Mean Corpuscular Hemoglobin 29.5 pg (25-34); Mean Corpuscular Hgb Conc 32.6 g/dL (32-36); Mean Corpuscular Volume 90.5 fL (80-100); Mean Platelet Volume 8.8 fL (7.4-10.4); Monocytes % (auto) 9.3 %; Neutrophils % (auto) 60.5 %; Platelet Count 411 K/uL (130-400); RDW Coefficient of Variation 13.6 % (11.5-14.5); RDW Standard Deviation 45.1 fL (36.4-46.3); Red Blood Count 4.31 M/uL (4.2-5.4); White Blood Count 6.45 K/uL (4.8-10.8)
[2019-08-14 08:26] LABS: Albumin Globulin Ratio 0.5 (0.9-2); Albumin Level 2.1 gm/dl (3.4-5.0); BUN Creatinine Ratio 31.1 (10-20); Bilirubin,Total 0.4 mg/dl (0.2-1); Calcium 8.7 mg/dl (8.5-10.1); Creatinine Clr Calc Pharmacy 106.9 ml/min; Est GFR (African American) 114.5; Est GFR (Non-African American) 98.8; Globulin 4.5 gm/dl (2.5-4.0); Potassium 3.8 mmol/L (3.5-5.1); Total Protein 6.6 gm/dl (6.4-8.2)
[2019-08-14] MEDS: INSULIN ASPART 100 UNITS/ML 3 ML PEN SC SCH ×4 (08:40→22:02)
[2019-08-14] MEDS: METOPROLOL SUCC 25MG EXT REL TAB PO SCH (08:41)
[2019-08-14] MEDS: LOSARTAN POTASSIUM 25 MG TAB PO SCH (08:41)
[2019-08-14] MEDS: CHOLECALCIFEROL 1,000 UNITS 25 MCG TAB PO SCH (08:42)
[2019-08-14] MEDS: CEROVITE ADV FORMULA TAB PO SCH (08:42)
[2019-08-14] MEDS: PANTOprazole 40 MG TAB PO SCH (08:42)
--- NOTE | 2019-08-14 13:07 | Hospitalist Progress Note ---
Date of Service August 14, 2019 Assessment & Plan (1) Cellulitis of hand: Continue vanc + cefepime Continue to Elevate left hand. Blood cultures ngtd Erythema and edema continues to improve (2) Osteomyelitis: Vancomycin + Cefepime as above. Consulted orthopedics - will likely have surgery this week Trend sed rate (3) Hypertension: Continue losartan (4) Aortic stenosis: Known severe , mod AR. Pt reports planning on TAVR on August 16. Surgery will have to be delayed as she will still be on antibiotics for current infection at that time. Talked with [facility] as well as patient's zoo director Dr. Guzman concerning need for rescheduling TAVR. Ms. Harrington is very concerned about her health in regards to delaying this surgery. Discussed with her in simple terms that she is currently stable without CHF exacerbation or indication of imminent decompensation and that delaying this surgery until after her antibiotics are completed should not endanger her unduly. (5) Mitral regurgitation: noted history of this. As above. (6) Chronic diastolic CHF (congestive heart failure): Noted history of this although not on Lasix, suspect related to valvular disease as above Continue metoprolol succinate and losartan. No apparent exacerbation (7) Type 2 diabetes mellitus: Pt reports complication of peripheral neuropathy. Consult pharmacy glycemic control for basal bolus insulin regimen (stop home meds) HbA1C 9.3%. Diabetes education (8) DVT prophylaxis: Lovenox 40mg SQ daily Attempted to update sister but no answer. Will try again later this evening or tomorrow Admission and Anticipated Discharge Date Admission Date: August 10, 2019 Subjective Ms. Harrington reports that her hand is improving with less edema and redness. She has no other complaints. ROS Constitutional: no chills, aches, sweats or fever Respiratory: no sob,cough, sputum, or wheezing Cardiac: no chest pain, palpitations, edema, orthopnea or lightheadedness GI: no abdominal pain, nausea, vomiting, diarrhea or constipation : no dysuria or hesitancy Extremities: no joint pain or weakness Skin: see HPI All other systems reviewed and negative Physical Exam Physical Exam: General: no distress Eyes: normal inspection, PERLL Respiratory: chest non tender, clear to auscultation, normal breath sounds, no respiratory distress, no accessory muscle use Cardiac: regular rate and rhythm, no rub or gallop, systolic murmur, improving edema left hand, no jvd GI/: active bowel sounds, no abd pain or tenderness, soft, non distended Extremities: normal range of motion, normal strength, non tender Neuro/Psych: alert and oriented x 3, normal mood and affect Skin: normal color, dry, left hand with less edema and erythema. Results & Data Results & Data ([facility]) Vital Signs (Past 12 Hours) Vital Signs Temp Pulse Resp BP Pulse Ox 08/14/19 07:24 36.7 C 93 H 15 124/69 94 PG Care Time/CCT Total # of Minutes Spent Total Time Spent with Patient: Total time spent is greater than 50% in coordination of care (as documented) at patient's floor/unit and/or counseling patient: Coding Level of Care Code 06524 Subseq Hosp Care Lvl 2 Diagnoses Cellulitis of hand L03.119 Osteomyelitis M86.149 Laterality: unspecified laterality Osteomyelitis location: hand Osteomyelitis type: other acute Hypertension I10 Hypertension type: essential hypertension Aortic stenosis I35.0 Cardiac valve disease etiology: etiology unspecified Mitral regurgitation I34.0 Cardiac valve disease etiology: etiology unspecified Chronic diastolic CHF (congestive heart failure) I50.32 Type 2 diabetes mellitus E11.9 DVT prophylaxis Z29.9 (1) Osteomyelitis Laterality: unspecified laterality Osteomyelitis location: hand Osteomyelitis type: other acute Qualified Code(s): M86.149 - Other acute osteomyelitis, unspecified hand (2) Hypertension Hypertension type: essential hypertension Qualified Code(s): I10 - Essential (primary) hypertension (3) Aortic stenosis Cardiac valve disease etiology: etiology unspecified Qualified Code(s): I35.0 - Nonrheumatic aortic (valve) stenosis (4) Mitral regurgitation Cardiac valve disease etiology: etiology unspecified Qualified Code(s): I34.0 - Nonrheumatic mitral (valve) insufficiency
[2019-08-14] MEDS ORDERED: VANCOMYCIN TROUGH ONE (13:30)
--- NOTE | 2019-08-14 13:36 | Pharmacy Report ---
Pharm Abx/Gly Prg Nt - Date of Service August 14, 2019 - Scope Pharmacy has been consulted to manage vancomycin and glycemic control for this patient as per the Pharmacy & Therapeutics Committee approved dosing protocols. - Objective Vital Signs (Past 12hrs): Vital Signs Temp Pulse Resp BP Pulse Ox 08/14/19 07:24 36.7 C 93 H 15 124/69 94 Lab Results: Laboratory Tests (24 Hours) 08/14/19 08/14/19 08/13/19 07:27 07:27 13:23 WBC 6.45 Neut # (Auto) 3.90 Creatinine 0.37 L Est Cr Clr Drug Dosing 106.9 Vancomycin Trough 14.8 Accuchecks BSG (last 24 hours):: 08/13/19 08/13/19 08/14/19 17:24 20:41 07:27 Glucose 165 H POC Glucose 137 H 166 H 08/14/19 08/14/19 08:21 12:02 Glucose POC Glucose 145 H 277 H HbA1C: Hemoglobin A1c 9.3 % (4.5-5.6) H 08/11/19 04:49 - Outpatient Anti-Diabetic Regimen Recent Pertinent Medications: Outpatient Anti-diabetic Regimen: * Jardiance 25 mg daily * Levemir 8 units qHS * Sitagliptin/metformin daily * A1c = 9.3 % 08/11/19 INPATIENT INSULIN REGIMEN AND CAUSES OF INSULIN RESISTANCE: - Assessment & Plan Assessment: ID: * 84 year old F receiving vancomycin and cefepime for treatment of osteomyelitis of 1st R finger * Day # 5 of antimicrobial therapy * Patient had IV site issues this morning so 0600 dose of vancomycin was NOT inf used. IV site not accessible until ~1400 today so next dose was given at scheduled time. Glycemic: * BSGs have been stable on ~30 units of insulin per day * Fasting BSG up slightly today but has been ~100 mg/dL * Postprandials acceptable. Much higher BSG at lunch today but will wait to make changes until we see a consistent trend. No additional causes of insulin resistance. Plan: ANTIMICROBIAL THERAPY Vancomycin * Continue dose of 1000 mg IV every 8 hours * Goal trough level: 15 to 20 mcg/mL * Trough level re-ordered for: 08/15/19 prior to the 1400 dose INPATIENT GLYCEMIC CONTROL * Continue to hold outpatient oral diabetes medications Basal Insulin - no change * Lantus 8 units qHS Bolus Insulin - no change * NovoLog per scale ACHS or Q6hrs while NPO * Goal Range: Low 110 mg/dL - High 140 mg/dL * Correction Factor: 25 mg/dL/unit * Nutritional / Prandial insulin per carb ratio of 1 unit per 9 grams CHO consumed * Please note that the plan above was derived based on current level of insulin resistance and hospital stress. These recommendations are appropriate for inpatient admission only. Plan of care upon discharge will need to be reassessed to avoid potential outpatient hypo/hyperglycemia. Pharmacy will follow patient and adjust orders on a daily basis. Thank you for allowing us to participate in this patients care.
[2019-08-14] MEDS: INSULIN GLARGINE SOLOSTAR 100 UNITS/ML 3 ML PEN SC SCH (22:02)
[2019-08-15] MEDS ORDERED: Nursing to Pharmacy Communication ONE ×2 (00:27→10:06)
[2019-08-15] MEDS: CEFEPIME 2,000 MG in SYRINGE 7.5 ML IV SCH ×3 (05:47→21:36)
[2019-08-15] MEDS: VANCOMYCIN HCL 1,000 MG in SODIUM CHLORIDE 0.9% 250 ML IV SCH ×4 (05:47→22:01)
[2019-08-15] MEDS ORDERED: INSULIN ASPART 100 UNITS/ML 3 ML PEN SC SCH (06:00)
--- NOTE | 2019-08-15 06:52 | Anesthesiology Consultation ---
Date of Service August 15, 2019 Assessment & Plan (1) Encounter for pre-operative examination: Chart Review Chart Review: Acceptable Risk for Surgery Consults Requested none ASA ASA4 Proposed Anesthesia Anesthesia Type: MAC Risk / Benefits Reviewed With: PT / POA / Parent / Guardian, Accepts Plan and Informed Consent Obtained History Surgery Operation Date: 08/15/19 10:20 Proposed Procedures p Left Thumb Partial Amputation - Matias Abernathy DO Height/Weight Height: 5 ft 3 in Weight: 68.3 kg Allergies Allergy/AdvReac Type Severity Reaction Status Date / Time No Known Allergies Allergy Mild NONE Verified 02/09/19 19:29 Medications Home Medications Medication Instructions Recorded Confirmed Last Taken Levemir U-100 Insulin 8 unit SUBCUT HS 01/09/18 08/10/19 08/09/19 sitagliptin-metformin 2 tab PO DAILY 01/09/18 08/10/19 08/10/19 cholecalciferol (vitamin D3) 2,000 units PO DAILY #60 cap 01/15/18 08/10/19 08/10/19 [Vitamin D3] Multivitamin 50 Plus 1 tab PO DAILY 02/11/18 08/10/19 08/10/19 PreserVision AREDS 1 tab PO BID 02/11/18 08/10/19 08/10/19 aspirin [Ecotrin Low Strength] 81 mg PO Q OTHER DAY 02/11/18 08/10/19 02/08/19 hypromellose 1 drp OPHTHALMIC (EYE) QID PRN 02/11/18 08/10/19 08/10/19 metoprolol succinate 12.5 mg PO DAILY 02/09/19 08/10/19 08/10/19 Jardiance 25 mg PO DAILY 03/23/19 08/10/19 08/10/19 pantoprazole 40 mg PO DAILY 03/23/19 08/10/19 08/10/19 losartan 25 mg PO DAILY 08/10/19 08/10/19 08/10/19 Active Medications Generic Name Dose Route Start Last Admin Trade Name Freq PRN Reason Stop Dose Admin Acetaminophen 650 mg 08/10/19 17:17 08/11/19 21:27 Tylenol PO 09/09/19 17:16 650 mg Q4H PRN Administration pain/fever Aspirin 81 mg 08/11/19 09:00 05/28/20 08:30 Ecotrin Ectab PO 09/10/19 08:59 81 mg Q2D@0900 SINDY Administration Enoxaparin Sodium 40 mg 08/10/19 21:00 08/13/19 20:59 Lovenox SQ 09/09/19 20:59 40 mg Q24H SINDY Administration Cefepime HCl 2,000 mg/ Syringe 20 mls @ 5.5 mls/min 08/10/19 22:15 08/15/19 05:47 IV 09/21/19 22:14 5.5 mls/min Q8 SINDY Administration Protocol Vancomycin HCl 1,000 mg/ 270 mls @ 125 mls/hr 08/12/19 22:00 08/14/19 23:50 Sodium Chloride IV 09/22/19 02:29 Infused Q8H SINDY Infusion Insulin Aspart 0 units 08/15/19 06:00 08/15/19 06:10 Novolog Flexpen SC 09/14/19 05:59 3 units Q6 SINDY Administration Insulin Glargine 8 units 08/12/19 21:00 08/14/19 22:02 Lantus Solostar Pen SC 09/10/19 20:59 Not Given HS SINDY Losartan Potassium 25 mg 08/11/19 09:00 08/14/19 08:41 Cozaar PO 09/10/19 08:59 25 mg DAILY SINDY Administration Metoprolol Succinate 12.5 mg 08/11/19 09:00 08/14/19 08:41 Toprol Xl PO 09/10/19 08:59 12.5 mg DAILY SINDY Administration Multivitamins/Minerals 1 tab 08/11/19 09:00 08/14/19 08:42 Multivitamin W/ Minerals Tab PO 09/10/19 08:59 1 tab DAILY SINDY Administration Pantoprazole Sodium 40 mg 08/11/19 09:00 08/14/19 08:42 Protonix PO 09/10/19 08:59 40 mg DAILY SINDY Administration Vitamin D 2,000 units 08/11/19 09:00 08/14/19 08:42 Vitamin D3 PO 09/10/19 08:59 2,000 units DAILY SINDY Administration NPO Date Last Intake of Fluids: 08/14/19 Time Last Intake of Fluids: 23:59 Date Last Intake of Solids: 08/14/19 Time Last Intake of Solids: 23:59 Past Medical History Medical History Aortic stenosis Aortic stenosis Arthritis (Chronic) Bifascicular bundle branch block Chronic diastolic CHF (congestive heart failure) Diabetes (Chronic) Left shoulder pain Mitral regurgitation Pericardial effusion Sinus tachycardia Exercise / Class Metabolic Activity IV < 2 Limit ADL/Bedbound Past Family History Family History Other Family history non-contributory Past Surgical History Surgical History Status post cholecystectomy Status post shoulder surgery bilateral Past Anesthesia History No Hx of Anesthesia Complications and No Family Hx of Anesthesia Complications History of PONV No Hx of PONV and No Hx of Motion Sickness Social History Smoking Status: Former smoker Hx Alcohol Use: No Hx Substance Use: No substance use type: does not use Physical Exam Vital Signs Last Vital Signs Temp 97.7 F 08/15/19 06:59 Pulse 88 08/15/19 06:59 Resp 16 08/15/19 06:59 BP 133/77 08/15/19 06:59 Pulse Ox 92 08/15/19 06:59 ENMT Mouth: + dentures Thyromental Distance: > or= 3.5 Finger Breadths Mallampati Class: II Neck normal visual inspection Respiratory normal respiratory effort Auscultation: lungs clear to auscultation bilaterally Cardiovascular Rate/Rhythm: regular rate and regular rhythm Heart Sounds: + murmur (4/6 TARIK) Testing Laboratory Results 08/14/19 07:27 08/14/19 07:27 Hemoglobin A1c 9.3 % (4.5-5.6) H 08/11/19 04:49 08/10/19 13:10 Aerobic Blood Culture - Preliminary Blood No growth in Aerobic bottle after 48 hours. Anaerobic Blood Culture - Preliminary No growth in Anaerobic bottle after 48 hours. 08/10/19 13:10 Aerobic Blood Culture - Preliminary Blood No growth in Aerobic bottle after 48 hours. Anaerobic Blood Culture - Preliminary No growth in Anaerobic bottle after 48 hours. 08/15/19 08/14/19 06:04 20:53 POC Glucose 200 H 71 Electrocardiogram Date: 08/12/19 Sinus rhythm with marked sinus arrhythmia, rate 94 bpm Right axis deviation Incomplete right bundle branch block Right ventricular hypertrophy Abnormal ECG When compared with ECG of 10-AUG-2019 22:52, Nonspecific T wave abnormality has replaced inverted T waves in Anterior leads Confirmed by Edwin Joseph ([id number]) on 08/12/2019 4:49:27 PM Chest X-Ray Date: 08/10/19 IMPRESSION: 1. Cardiomegaly without evidence of volume overload or congestive change. 2. Hyperinflation and heterogeneity may suggest underlying emphysema. Echocardiogram Date: 01/10/18 Normal LV size Mild LVH LVEF>70%, no regional wall motion abnormalities Normal RV size and function Borderline severe , LIMA 0.5 Mild AR/MR Grade 1 diastolic dysfunction Small to mod size pericardial effusion Compared with prior study on 06/30/2013, pericardial effusion has increased Cardiac Catheterization Date: 03/23/19 Summary: 1. Minimal nonobstructive coronary artery disease -20 to 30% ostial LAD 2. Normal left and right-sided filling pressures 3. Normal pulmonary artery pressures Recommendations: Proceed with TAVR evaluation for severe .
[2019-08-15] MEDS ORDERED: ATROPINE SULFATE 0.1 MG/ML 10ML SYR IV PRN (07:31)
[2019-08-15] MEDS ORDERED: fentaNYL citrate 100 MCG/2 ML VIAL IV PRN (07:31)
[2019-08-15] MEDS ORDERED: ePHEDrine sulfate 50 MG/ML AMP IV PRN (07:31)
[2019-08-15] MEDS ORDERED: fentaNYL citrate 100 MCG/2 ML VIAL ONE (07:35)
[2019-08-15] MEDS ORDERED: PROPOFOL IV EMULSION 10 MG/ML 20 ML VIAL IV ONE (07:46)
[2019-08-15] MEDS ORDERED: BUPIVACAINE 0.5 % 5 MG/1 ML MPF 30ML VIAL ONE (07:54)
[2019-08-15] MEDS ORDERED: METOPROLOL TARTRATE 1 MG/ML VIAL IV ONE (09:06)
--- NOTE | 2019-08-15 09:13 | History & Physical Bridge Note ---
Date of Service August 15, 2019 History & Physical Bridge Note I have examined the patient, reviewed the History & Physical and in the interval since the performance of the History & Physical I have noted the following changes of clinical significance: no changes noted
--- NOTE | 2019-08-15 09:17 | Post Operative Brief Note ---
Immediate Post Op Note v1 Date of Surgery August 15, 2019 Pre & Post Diagnosis Operation Date: 08/15/19 10:20 Pre-Op Diagnosis: Left hand osteomyelitis left thumb, osteomyelitis, cellulitis hand Post-Op Diagnosis: Left hand osteomyelitis left thumb, flexor tenosynovitis thumb, osteomyelitis, cellulitis hand I identified the patient and participated in the time-out.: Yes Procedure Operation Date: 08/15/19 10:20 Actual Procedures p Left Thumb Partial Amputation, debridement flexor tendon thumb (Left) - Matias Abernathy DO Surgeon Matias Abernathy DO General [employer] Worker Liborio Torres PA-C Estimated Blood Loss 1 Findings Consistent with Post-Op Diagnosis Specimens Bone and tissue left thumb Anesthesia Type MAC Regional Complications none Disposition Accompanied Patient To Recovery: Yes Disposition: Recovery Room
--- NOTE | 2019-08-15 09:30 | Anesthesiology Progress Note ---
Date of Service August 15, 2019 Anesthesia Post Procedure Vital Signs Vital Signs: Temp Pulse Resp BP BP Pulse Ox 08/15/19 06:59 97.7 F 88 16 133/77 92 08/14/19 23:39 98.1 F 87 14 127/73 94 08/14/19 15:07 98.2 F 93 H 16 101/64 95 Pain Intensity Left Hand: Pain Intensity: 5 Transfer of Care Handoff Completed per policy Notes Mental Status: alert / awake / arousable and participated in evaluation Patient Amnestic to Procedure: Yes Nausea / Vomiting: adequately controlled Pain: adequately controlled Airway Patency, RR, SpO2: stable & adequate BP & HR: stable & adequate Hydration State: stable & adequate Anesthetic Complications: no major complications apparent and Pt Satisfied with anesthetic care
[2019-08-15] MEDS ORDERED: bisacodyL 10 MG SUPP PR PRN (10:05)
[2019-08-15] MEDS ORDERED: NALOXONE HCL 0.4 MG/1 ML VIAL/CARP IV PRN (10:05)
[2019-08-15] MEDS ORDERED: OXYCODONE HCL IR 5 MG TAB (IMMEDIATE RELEASE) PO PRN (10:05)
[2019-08-15] MEDS ORDERED: MAGNESIUM HYDROXIDE SUSP 30 ML UDC PO PRN (10:05)
[2019-08-15] MEDS ORDERED: ONDANSETRON INJ 2 MG/ML 2 ML VIAL IV PRN (10:05)
[2019-08-15] MEDS ORDERED: METOCLOPRAMIDE HCL INJ 5 MG/ML 2 ML VIAL IV PRN (10:05)
--- NOTE | 2019-08-15 11:14 | Pharmacy Report ---
Glycemic Control Progress Note - Date of Service August 15, 2019 - Scope Glycemic Pharmacist consulted for glycemic control to write orders per [facility] inpatient glycemic control protocol. - Objective Accuchecks BSG(last 24 hours):: 08/14/19 08/14/19 08/14/19 12:02 17:04 20:53 POC Glucose 277 H 126 H 71 08/15/19 08/15/19 06:04 09:24 POC Glucose 200 H 205 H HbA1c:: Hemoglobin A1c 9.3 % (4.5-5.6) H 08/11/19 04:49 - Recent Pertinent Medications The patient is currently receiving: * Basal insulin: Lantus 8 units every 24 hours (in the evening) * Correctional Insulin: Novolog Correction per scale ACHS Goal Range: Low 110 mg/dL - High 140 mg/dL Correction Factor: 25 mg/dL/unit * Prandial insulin: Per carb ratio of 1 unit per 9 grams CHO consumed - Outpatient Anti-Diabetic Meds Jardiance 25 mg PO daily Levemir 8 units HS Januvia - metformin 2 tabs HS - Assessment & Plan ASSESSMENT: * See progress note from 08/11/19 for more background info, in short: * Pt receiving SQ basal bolus insulin regimen for hyperglycemia secondary to baseline DM (outpatient regimen on hold), infection (currently on vancomycin and cefepime), and now POD 0 for amputation of finger. * Patient is currently receiving an average of 23 units of insulin per day * 0 units of basal insulin * 23 units of prandial/correctional insulin * BSGs ranging 71 - 277 mg/dl over the past 24hrs * Changes needed to insulin regimen: * AM Fasting BSG = 200 mg/dl. This is above goal range for patient based on inpatient targets and co-morbidities. Patient's basal insulin was held last night. Will give this dose after she returns from OR. No adjustments right now. * Post-prandial BSGs are in range therefore no changes needed to CF/CR. * Total daily dose = ~30 units. Adjusted insulin. PLAN FOR INPATIENT GLYCEMIC CONTROL: * Continuing Lantus 8 units SQ HS (give last night's dose now) * Continuing correction factor of 25 mg/dl/unit * Continuing carb ratio of 1 unit per 9 grams CHO consumed * Continuing goal range of Low 110 mg/dL - High 140 mg/dL * Please note that the plan above was derived based on current level of insulin resistance and hospital stress. These recommendations are appropriate for inpatient admission only. Plan of care upon discharge will need to be reassessed to avoid potential outpatient hypo/hyperglycemia. Thank you.
--- NOTE | 2019-08-15 11:15 | Operative Report (OR) ---
DATE OF OPERATION: 08/15/2019 PREOPERATIVE DIAGNOSES: 1. 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 2. Cellulitis of the hand. POSTOPERATIVE DIAGNOSES: 1. Left thumb osteomyelitis involving the distal phalanx and the proximal phalanx. 2. Cellulitis of the left hand. 3. Flexor tenosynovitis of the thumb. PROCEDURES: 1. Left thumb partial amputation including the remainder of the distal phalanx and partial proximal phalanx. 2. Debridement of the flexor tendon of the left thumb. SURGEON: Matias Abernathy DO. ROVING MARKER: Liborio Hoover PA-C, who was present for patient positioning, sterile prep and drape, management of retractors and instruments. He was present through the critical portions of the case including wound closure, application of sterile dressing and transport of the patient to recovery. ANESTHESIA: MAC, regional. SPECIMENS: Bone and tissue of the left thumb. DRAINS: None. COMPLICATIONS: None. BLOOD LOSS: 1 mL. PERTINENT HISTORY: This is an 84-year-old female who apparently has been picking, chewing or sucking on her thumbs chronically for an extended period of time. Both thumbs have been involved; however, during this hospital stay, the patient has severe damage to the left distal thumb to the region of the interphalangeal joint with complete loss of the nail and the nail bed and cellulitis. The patient has severe peripheral neuropathy and significant cardiovascular disease as well as diabetes mellitus. She has been picking away at the thumb for the last 4 years essentially. According to resords there has not been any conservative care and presents today for definitive management. The patient was scheduled to have a TAVR for an aortic valve replacement on 08/17/2019; however, she is unable to proceed with a TAVR due to the chronic infection of the left thumb; therefore, even more imperative that the patient have the surgery now rather than waiting for more conservative care which would likely fail due to positive radiographs demonstrating obvious osteomyelitis and erosion of the thumb. All potential risks, benefits, complications, alternatives, rehab, potential for incomplete relief of symptoms, need for further surgery, DVT, PE, , persistent pain, swelling, weakness, scarring, loss of function and further amputation were discussed with the patient. The patient decided to proceed with the procedure as indicated. DESCRIPTION OF PROCEDURE: The patient was taken to the operative suite and placed supine on the operating table. After review of consent and identification of proper operative site, the patient was sedated. Left upper extremity had a tourniquet applied high on the upper extremity and then left upper extremity was then sterilely prepped and draped in usual fashion, elevated and partially exsanguinated with an Esmarch bandage starting at the wrist proceeding proximally. Tourniquet was inflated to 250 mmHg. 30 mL of 0.5% Marcaine plain was injected as a partial wrist block which was placed in the carpal tunnel and superficially to address the superficial radial cutaneous nerve and the superficial sensory skin nerves at the level of the wrist on the radial aspect. A fish-mouth incision was then made in the distal tip of the left thumb with a 15 blade scalpel, the damaged and necrosed tissue with obvious destruction was excised. The nail bed was completely missing and the distal phalanx was exposed in the tip. The distal phalanx of the thumb was then skeletonized with a 15 blade scalpel. The soft tissue was then excised and passed off and the interphalangeal joint was then incised with 15 blade scalpel and the distal phalanx was then disarticulated and passed off. Next, fish-mouth incision was carried along the mid lateral line both radial and ulnar aspect of the left thumb exposing the condyle of the distal phalanx. Using Fuentes rakes to retract soft tissue, the distal one-third of the proximal phalanx of the left thumb was then sharply excised with a sagittal saw. The remaining bone and tissue appeared to be markedly more healthy and viable. The site was irrigated with sterile normal saline. There was noted to be erosion and septic features of the fibers of the flexor tendon. These were placed on stretch with a hemostat and then withdrawn from the tissue and then sharply excised proximally with a 15 blade scalpel. Next, copious irrigation was performed with sterile normal saline until clear. Bacitracin additive had been added to the mixture and after copious irrigation, low tension closure of the fish-mouth incision was then performed with interrupted 4-0 nylon sutures. Next, the tourniquet was released. The patient was awakened and taken to recovery in stable condition. I attest to the content of the Intraoperative Record and any orders documented therein. Any exceptions are noted below. RA
[2019-08-15] MEDS: CHOLECALCIFEROL 1,000 UNITS 25 MCG TAB PO SCH (11:26)
[2019-08-15] MEDS: CEROVITE ADV FORMULA TAB PO SCH (11:26)
[2019-08-15] MEDS: PANTOprazole 40 MG TAB PO SCH (11:26)
[2019-08-15] MEDS: ASPIRIN 81 MG ECTAB PO SCH (11:26)
[2019-08-15] MEDS: SODIUM CHLORIDE 0.9% 1000ML 1,000 ML IV SCH ×2 (11:35→21:37)
[2019-08-15] MEDS: LOSARTAN POTASSIUM 25 MG TAB PO SCH (11:38)
[2019-08-15] MEDS: METOPROLOL SUCC 25MG EXT REL TAB PO SCH (11:38)
[2019-08-15] MEDS ORDERED: INSULIN GLARGINE SOLOSTAR 100 UNITS/ML 3 ML PEN SC ONE (12:00)
[2019-08-15] MEDS ORDERED: INSULIN ASPART 100 UNITS/ML 3 ML PEN SC ONE (12:30)
[2019-08-15] MEDS: INSULIN ASPART 100 UNITS/ML 3 ML PEN SC SCH ×3 (12:33→21:27)
[2019-08-15] MEDS ORDERED: VANCOMYCIN TROUGH ONE (13:30)
--- NOTE | 2019-08-15 15:06 | Pharmacy Report ---
Pharmacy Abx Dose Short Note - Date of Service August 15, 2019 - Assessment & Plan Assessment 84 year old F receiving Vancomycin 1 gm IV q8h for treatment of OM for 1st R finger. Day #6 of antimicrobial therapy. A trough level obtained before dose today at 1400. Laboratory Tests 08/15/19 14:08 Vancomycin Trough 16.0 Plan Vancomycin * Trough level of 16 mcg/mL is therapeutic. * This was the second trough level obtained to confirm adequate Vancomycin dosing. * Continue dose of Vancomycin 1000 mg IV every 8 hours. * Goal trough level for Bone and Joint infection: 15 to 20 mcg/mL Pharmacy will continue to follow and will adjust dose/frequency as necessary. Thank you.
--- NOTE | 2019-08-15 15:33 | Hospitalist Progress Note ---
Date of Service August 15, 2019 Assessment & Plan (1) Cellulitis of hand: Continue vanc + cefepime Continue to Elevate left hand. Blood cultures ngtd (2) Osteomyelitis: Bilateral thumbs on imaging s/p left thumb amputation 08/14 Vancomycin + Cefepime as above. Consulted orthopedics PICC placed (3) Hypertension: Continue losartan (4) Aortic stenosis: Known severe , mod AR. Pt reports planning on TAVR on August 16. Surgery will have to be delayed as she will still be on antibiotics for current infection at that time. Talked with [facility] as well as patient's eyelet maker Dr. Guzman concerning need for rescheduling TAVR. (5) Mitral regurgitation: noted history of this. As above. (6) Chronic diastolic CHF (congestive heart failure): Noted history of this although not on Lasix, suspect related to valvular disease as above Continue metoprolol succinate and losartan. No apparent exacerbation (7) Type 2 diabetes mellitus: Pt reports complication of peripheral neuropathy. Consult pharmacy glycemic control for basal bolus insulin regimen (stop home meds) HbA1C 9.3%. Diabetes education (8) DVT prophylaxis: Lovenox 40mg SQ daily Sister Kayla updated over the phone Admission and Anticipated Discharge Date Admission Date: August 10, 2019 Subjective Ms. Harrington is post op this afternoon. She has no complaints. ROS Constitutional: no chills, aches, sweats or fever Respiratory: no sob,cough, sputum, or wheezing Cardiac: no chest pain, palpitations, edema, orthopnea or lightheadedness GI: no abdominal pain, nausea, vomiting, diarrhea or constipation : no dysuria or hesitancy Extremities: no joint pain or weakness Skin: no rash All other systems reviewed and negative Physical Exam Physical Exam: General: no distress Eyes: normal inspection, PERLL Respiratory: chest non tender, clear to auscultation, normal breath sounds, no respiratory distress, no accessory muscle use Cardiac: regular rate and rhythm, no rub or gallop,systolic murmur, no edema, no jvd GI/: active bowel sounds, no abd pain or tenderness, soft, non distended Extremities: normal range of motion, normal strength, non tender Neuro/Psych: alert and oriented x 3, normal mood and affect Skin: normal color, dry Results & Data Results & Data ([facility]) Vital Signs (Past 12 Hours) Vital Signs Temp Pulse Pulse Resp BP BP Pulse Ox 08/15/19 15:10 36.7 C 84 16 110/63 94 08/15/19 13:00 36.4 C L 80 16 100/62 95 08/15/19 12:00 36.4 C L 82 18 109/68 95 08/15/19 11:36 93/52 L 08/15/19 11:00 36.4 C L 81 16 134/87 94 08/15/19 10:30 36.4 C L 73 16 108/65 94 08/15/19 10:00 36.4 C L 78 18 108/61 94 08/15/19 09:45 37.2 C 75 17 113/67 95 08/15/19 09:35 75 17 113/67 95 08/15/19 09:25 75 22 121/78 94 08/15/19 09:18 36.8 C 78 16 121/71 95 08/15/19 06:59 36.5 C 88 16 133/77 92 PG Care Time/CCT Total # of Minutes Spent Total Time Spent with Patient: Total time spent is greater than 50% in coordination of care (as documented) at patient's floor/unit and/or counseling patient: Coding Level of Care Code 06111 Subseq Hosp Care Lvl 2 Diagnoses Cellulitis of hand L03.119 Osteomyelitis M86.149 Laterality: unspecified laterality Osteomyelitis location: hand Osteomyelitis type: other acute Hypertension I10 Hypertension type: essential hypertension Aortic stenosis I35.0 Cardiac valve disease etiology: etiology unspecified Mitral regurgitation I34.0 Cardiac valve disease etiology: etiology unspecified Chronic diastolic CHF (congestive heart failure) I50.32 Type 2 diabetes mellitus E11.9 DVT prophylaxis Z29.9 (1) Osteomyelitis Laterality: unspecified laterality Osteomyelitis location: hand Osteomyelitis type: other acute Qualified Code(s): M86.149 - Other acute osteomyelitis, unspecified hand (2) Hypertension Hypertension type: essential hypertension Qualified Code(s): I10 - Essential (primary) hypertension (3) Aortic stenosis Cardiac valve disease etiology: etiology unspecified Qualified Code(s): I35.0 - Nonrheumatic aortic (valve) stenosis (4) Mitral regurgitation Cardiac valve disease etiology: etiology unspecified Qualified Code(s): I34.0 - Nonrheumatic mitral (valve) insufficiency
[2019-08-15] MEDS: ACETAMINOPHEN 325 MG TAB PO PRN (18:40)
[2019-08-15] MEDS: DOCUSATE SODIUM 100 MG CAP PO SCH ×2 (21:23→21:35)
[2019-08-15] MEDS: SENNA 8.6 MG TAB PO SCH ×2 (21:24→21:26)
[2019-08-16] MEDS: VANCOMYCIN HCL 1,000 MG in SODIUM CHLORIDE 0.9% 250 ML IV SCH ×3 (05:27→21:01)
[2019-08-16] MEDS: CEFEPIME 2,000 MG in SYRINGE 7.5 ML IV SCH ×3 (05:27→21:01)
[2019-08-16] MEDS: ACETAMINOPHEN 325 MG TAB PO PRN (05:40)
[2019-08-16 06:09] LABS: Hematocrit (blood only) 37.8 % (37-47); Hemoglobin 12.3 g/dL (12.0-16.0); Mean Corpuscular Hemoglobin 29.6 pg (25-34); Mean Corpuscular Hgb Conc 32.5 g/dL (32-36); Mean Corpuscular Volume 90.9 fL (80-100); Mean Platelet Volume 8.8 fL (7.4-10.4); Platelet Count 431 K/uL (130-400); RDW Coefficient of Variation 13.6 % (11.5-14.5); RDW Standard Deviation 45.1 fL (36.4-46.3); Red Blood Count 4.16 M/uL (4.2-5.4); White Blood Count 7.85 K/uL (4.8-10.8)
[2019-08-16 06:35] LABS: BUN Creatinine Ratio 30.1 (10-20); Calcium 8.4 mg/dl (8.5-10.1); Creatinine Clr Calc Pharmacy 104.1 ml/min; Est GFR (African American) 113.5; Potassium 3.7 mmol/L (3.5-5.1)
--- NOTE | 2019-08-16 07:42 | Orthopedic Progress Note ---
Date of Service August 16, 2019 Assessment & Plan (1) Cellulitis of hand: POD#1 left thumb partial amputation -Continue with IV abx at this time. Continue elevation as best as possible. -Pain management -DVT prophylaxis as per medicine -Will plan on dressing change tomorrow Admission and Anticipated Discharge Date Admission Date: August 10, 2019 Subjective Patient is seen in bed resting comfortably. Not having much pain in hand. Denies any other complaints, no chest pain, sob, dizziness, light headedness. Review of Systems Review of Systems: All systems reviewed & are unremarkable except as noted in HPI & below Physical Exam Physical Exam: Resting in bed, comfortable. Sleeping, easily arousable. Dressing to left hand is c/d/i, fingers are mobile, mild swelling into fingers. No erythema noted into fingers. Distally sensation and n/v status is intact. Constitutional: WD/WN, vitals as above Results & Data ([facility]) Vital Signs (Past 12 Hours) Vital Signs Temp Pulse Pulse Resp BP BP Pulse Ox 08/16/19 07:08 36.8 C 86 18 124/78 95 08/16/19 05:05 36.9 C 86 14 118/68 94 08/15/19 23:04 36.9 C 87 14 96/57 L 93 Laboratory Results H & H 08/10/19 08/11/19 08/12/19 Range/Units 13:10 04:49 05: Hgb 14.0 13.1 13.0 (12.0-16.0) g/dL Hct 41.5 39.7 40.0 (37-47) % 08/13/19 08/14/19 08/16/19 Range/Units 05:54 07:27 05:28 Hgb 12.6 12.7 12.3 (12.0-16.0) g/dL Hct 38.4 39.0 37.8 (37-47) %
[2019-08-16] MEDS: CHOLECALCIFEROL 1,000 UNITS 25 MCG TAB PO SCH (08:11)
[2019-08-16] MEDS: LOSARTAN POTASSIUM 25 MG TAB PO SCH (08:12)
[2019-08-16] MEDS: DOCUSATE SODIUM 100 MG CAP PO SCH ×2 (08:12→21:02)
[2019-08-16] MEDS: METOPROLOL SUCC 25MG EXT REL TAB PO SCH (08:12)
[2019-08-16] MEDS: CEROVITE ADV FORMULA TAB PO SCH (08:12)
[2019-08-16] MEDS: PANTOprazole 40 MG TAB PO SCH (08:12)
[2019-08-16] MEDS: INSULIN ASPART 100 UNITS/ML 3 ML PEN SC SCH ×4 (08:40→20:51)
[2019-08-16] MEDS ORDERED: INSULIN GLARGINE SOLOSTAR 100 UNITS/ML 3 ML PEN SC ONE (09:00)
[2019-08-16] MEDS ORDERED: MULTIVITAMIN TAB PO SCH (09:00)
--- NOTE | 2019-08-16 09:51 | Pharmacy Report ---
Glycemic Control Progress Note - Date of Service August 16, 2019 - Scope Glycemic Pharmacist consulted for glycemic control to write orders per [facility] inpatient glycemic control protocol. - Objective Accuchecks BSG(last 24 hours):: 08/15/19 08/15/19 08/15/19 12:13 12:14 14:30 Glucose POC Glucose 395 H* 353 H* 259 H 08/15/19 08/15/19 08/16/19 17:05 20:36 05:28 Glucose 209 H POC Glucose 196 H 163 H 08/16/19 08:10 Glucose POC Glucose 188 H HbA1c:: Hemoglobin A1c 9.3 % (4.5-5.6) H 08/11/19 04:49 - Recent Pertinent Medications The patient is currently receiving: * Basal insulin: Lantus 8 units every 24 hours * Correctional Insulin: Novolog Correction per scale ACHS Goal Range: Low 110 mg/dL - High 140 mg/dL Correction Factor: 25 mg/dL/unit * Prandial insulin: Per carb ratio of 1 unit per 9 grams CHO consumed - Outpatient Anti-Diabetic Meds Jardiance 25 mg daily Levemir 8 units nightly Januvia 50-1000 2 tablets once daily - Assessment & Plan ASSESSMENT: * See progress note from 08/11/2019 for more background info, in short: * Pt receiving SQ basal bolus insulin regimen for hyperglycemia secondary to baseline DM (outpatient regimen on hold). Patient on vancomycin and cefepime. She is POD 1 for amputation. * Patient is currently receiving an average of 30 units of insulin per day * 8 units of basal insulin * 22 units of prandial/correctional insulin * BSGs ranging 163 - 353 mg/dl over the past 24hrs * Changes needed to insulin regimen: * AM Fasting BSG = 188 mg/dl. This is above goal range for patient based on inpatient targets and co-morbidities. This is the second day in a row that the patient has had elevated fasting. Increase fasting. Plan for 5 units this morning then 8 units tonight. A little extra Lantus will be given today since will push all Lantus dosing from BID to nightly. Plan for 10 units tomorrow evening (13 units if BSG > 160 mg/dL). * Post-prandial BSGs are in range therefore no changes needed to CF/CR. * Total daily dose = 30 units. PLAN FOR INPATIENT GLYCEMIC CONTROL: * Changing Lantus to 5 units x 1 then 8 units tonight. Start 10 units of Lantus nightly tomorrow evening (13 units if BSG > 160 mg/dL) * Continuing correction factor of 25 mg/dl/unit * Continuing carb ratio of 1 unit per 9 grams CHO consumed * Continuing goal range of Low 110 mg/dL - High 140 mg/dL * Please note that the plan above was derived based on current level of insulin resistance and hospital stress. These recommendations are appropriate for inpatient admission only. Plan of care upon discharge will need to be reassessed to avoid potential outpatient hypo/hyperglycemia. Thank you.
--- NOTE | 2019-08-16 15:03 | Hospitalist Progress Note ---
Date of Service August 16, 2019 Assessment & Plan (1) Cellulitis of hand: Continue vanc + cefepime Continue to Elevate left hand. Blood cultures ngtd (2) Osteomyelitis: Bilateral thumbs on imaging s/p left thumb amputation 08/14 Vancomycin + Cefepime as above. Consulted orthopedics - will change dressing tomorrow PICC placed - will need HH set up for abx administration (3) Hypertension: Continue losartan (4) Aortic stenosis: Known severe , mod AR. Was to have TAVR on August 16. Surgery will be delayed until she completes her antibiotic regimen Talked with [place] [facility]ology as well as patient's air lift operator Dr. Guzman concerning need for rescheduling TAVR. They will get in touch with the patient (5) Mitral regurgitation: noted history of this. As above. (6) Chronic diastolic CHF (congestive heart failure): Noted history of this although not on Lasix, suspect related to valvular disease as above Continue metoprolol succinate and losartan. No apparent exacerbation (7) Type 2 diabetes mellitus: Frequently hyperglycemic Pt reports complication of peripheral neuropathy. Consult pharmacy glycemic control for basal bolus insulin regimen (stop home meds) HbA1C 9.3%. Diabetes education (8) DVT prophylaxis: Lovenox 40mg SQ daily Admission and Anticipated Discharge Date Admission Date: August 10, 2019 Subjective Ms. Harrington is feeling well following her surgery. No pain in her hand ROS Constitutional: no chills, aches, sweats or fever Respiratory: no sob,cough, sputum, or wheezing Cardiac: no chest pain, palpitations, edema, orthopnea or lightheadedness GI: no abdominal pain, nausea, vomiting, diarrhea or constipation : no dysuria or hesitancy Extremities: no joint pain or weakness Skin: no rash All other systems reviewed and negative Physical Exam Physical Exam: General: no distress Eyes: normal inspection, PERLL Respiratory: chest non tender, clear to auscultation, normal breath sounds, no respiratory distress, no accessory muscle use Cardiac: regular rate and rhythm, no rub or gallop, no murmur, no edema, no jvd GI/: active bowel sounds, no abd pain or tenderness, soft, non distended Extremities: normal range of motion, normal strength, non tender Neuro/Psych: alert and oriented x 3, normal mood and affect Skin: normal color, dry Results & Data Results & Data ([facility]) Vital Signs (Past 12 Hours) Vital Signs Temp Pulse Pulse Resp BP BP Pulse Ox 08/16/19 07:08 36.8 C 86 18 124/78 95 08/16/19 05:05 36.9 C 86 14 118/68 94 PG Care Time/CCT Total # of Minutes Spent Total Time Spent with Patient: Total time spent is greater than 50% in coordination of care (as documented) at patient's floor/unit and/or counseling patient: Coding Level of Care Code 27135 Subseq Hosp Care Lvl 2 Diagnoses Cellulitis of hand L03.119 Osteomyelitis M86.149 Laterality: unspecified laterality Osteomyelitis location: hand Osteomyelitis type: other acute Hypertension I10 Hypertension type: essential hypertension Aortic stenosis I35.0 Cardiac valve disease etiology: etiology unspecified Mitral regurgitation I34.0 Cardiac valve disease etiology: etiology unspecified Chronic diastolic CHF (congestive heart failure) I50.32 Type 2 diabetes mellitus E11.9 DVT prophylaxis Z29.9 (1) Osteomyelitis Laterality: unspecified laterality Osteomyelitis location: hand Osteomyelitis type: other acute Qualified Code(s): M86.149 - Other acute osteomyelitis, unspecified hand (2) Hypertension Hypertension type: essential hypertension Qualified Code(s): I10 - Essential (primary) hypertension (3) Aortic stenosis Cardiac valve disease etiology: etiology unspecified Qualified Code(s): I35.0 - Nonrheumatic aortic (valve) stenosis (4) Mitral regurgitation Cardiac valve disease etiology: etiology unspecified Qualified Code(s): I34.0 - Nonrheumatic mitral (valve) insufficiency
[2019-08-16] MEDS: INSULIN GLARGINE SOLOSTAR 100 UNITS/ML 3 ML PEN SC SCH (21:00)
[2019-08-16] MEDS: ENOXAPARIN INJ 40 MG/0.4 ML SYR SQ SCH (21:01)
[2019-08-16] MEDS: SENNA 8.6 MG TAB PO SCH (21:02)
[2019-08-17] MEDS: VANCOMYCIN HCL 1,000 MG in SODIUM CHLORIDE 0.9% 250 ML IV SCH ×3 (06:02→21:57)
[2019-08-17] MEDS: CEFEPIME 2,000 MG in SYRINGE 7.5 ML IV SCH ×3 (06:02→21:36)
[2019-08-17] MEDS: INSULIN ASPART 100 UNITS/ML 3 ML PEN SC SCH ×4 (08:22→21:25)
[2019-08-17] MEDS: LOSARTAN POTASSIUM 25 MG TAB PO SCH (08:26)
[2019-08-17] MEDS: DOCUSATE SODIUM 100 MG CAP PO SCH ×2 (08:26→21:20)
[2019-08-17] MEDS: CHOLECALCIFEROL 1,000 UNITS 25 MCG TAB PO SCH (08:26)
[2019-08-17] MEDS: ASPIRIN 81 MG ECTAB PO SCH (08:26)
[2019-08-17] MEDS: CEROVITE ADV FORMULA TAB PO SCH (08:26)
[2019-08-17] MEDS: METOPROLOL SUCC 25MG EXT REL TAB PO SCH (08:26)
[2019-08-17] MEDS: PANTOprazole 40 MG TAB PO SCH (08:27)
--- NOTE | 2019-08-17 10:33 | Anesthesiology Progress Note ---
Date of Service August 17, 2019 Anesthesia Post Procedure Vital Signs Vital Signs: Temp Pulse Pulse Resp BP BP Pulse Ox 08/17/19 08:02 36.4 C L 97 H 18 136/82 95 08/16/19 23:47 36.7 C 88 16 151/85 H 96 08/16/19 15:44 36.7 C 79 16 101/55 L 95 Pain Intensity Left Hand: Pain Intensity: 5 Notes Mental Status: alert / awake / arousable and participated in evaluation Nausea / Vomiting: adequately controlled Pain: adequately controlled Airway Patency, RR, SpO2: stable & adequate BP & HR: stable & adequate Hydration State: stable & adequate
--- NOTE | 2019-08-17 11:53 | Orthopedic Progress Note ---
Date of Service August 17, 2019 Assessment & Plan (1) Cellulitis of hand: POD#2 left thumb partial amputation -Continue with IV abx at this time. Continue elevation as best as possible. -Daily dressing changes per nursing staff. -Pain management -DVT prophylaxis as per medicine Ortho will sign off at this time. Please call with any questions. Instructions placed in EHR. Admission and Anticipated Discharge Date Admission Date: August 10, 2019 Subjective Pt sitting in chair at the bedside. No complaints at this time. Pain controlled presently . Physical Exam Physical Exam: Dressing changed. Wound benign. Minimal serous drainage. Hand erythema that she had when I saw her last saturday has resolved nicely. Swelling decreased. Results & Data ([facility]) Vital Signs (Past 12 Hours) Vital Signs Temp Pulse Resp BP Pulse Ox 08/17/19 08:02 36.4 C L 97 H 18 136/82 95
--- NOTE | 2019-08-17 18:17 | Hospitalist Progress Note ---
Date of Service August 17, 2019 Assessment & Plan (1) Cellulitis of hand: Continue vanc + cefepime Continue to Elevate left hand. Blood cultures ngtd. No tissue culture avaialble. Discussed with ortho, will discharge on augmentin tomorrow if patient is doing well. 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 Consulted orthopedics - will change dressing tomorrow PICC placed - will likely remove before discharge. (3) Hypertension: Continue losartan (4) Aortic stenosis: Known severe , mod AR. Was to have TAVR on August 16. Surgery will be delayed until she completes her antibiotic regimen Talked with [facility] as well as patient's scientific programmer Dr. Guzman concerning need for rescheduling TAVR. They will get in touch with the patient (5) Mitral regurgitation: noted history of this. As above. (6) Chronic diastolic CHF (congestive heart failure): Noted history of this although not on Lasix, suspect related to valvular disease as above Continue metoprolol succinate and losartan. No apparent exacerbation (7) Type 2 diabetes mellitus: Frequently hyperglycemic Pt reports complication of peripheral neuropathy. Consult pharmacy glycemic control for basal bolus insulin regimen (stop home meds) HbA1C 9.3%. Diabetes education (8) DVT prophylaxis: Lovenox 40mg SQ daily Admission and Anticipated Discharge Date Admission Date: August 10, 2019 Subjective Patient reports no new symptoms. Review of Systems Review of Systems: All systems reviewed & are unremarkable except as noted in HPI & below Physical Exam Physical Exam: General: no distress Eyes: normal inspection, PERLL Respiratory: chest non tender, clear to auscultation, normal breath sounds, no respiratory distress, no accessory muscle use Cardiac: regular rate and rhythm, no rub or gallop, no murmur, no edema, no jvd GI/: active bowel sounds, no abd pain or tenderness, soft, non distended Extremities: normal range of motion, normal strength, non tender Neuro/Psych: alert and oriented x 3, normal mood and affect Skin: normal color, dry Results & Data Results & Data ([facility]) Vital Signs (Past 12 Hours) Vital Signs Temp Pulse Pulse Resp BP BP Pulse Ox 08/17/19 15:39 36.4 C L 82 17 107/66 94 08/17/19 08:02 36.4 C L 97 H 18 136/82 95 PG Care Time/CCT Total # of Minutes Spent Total Time Spent with Patient: Total time spent is greater than 50% in coordination of care (as documented) at patient's floor/unit and/or counseling patient: Coding Level of Care Code 61297 Subseq Hosp Care Lvl 3 Diagnoses Cellulitis of hand L03.119 Osteomyelitis M86.149 Laterality: unspecified laterality Osteomyelitis location: hand Osteomyelitis type: other acute Hypertension I10 Hypertension type: essential hypertension Aortic stenosis I35.0 Cardiac valve disease etiology: etiology unspecified Mitral regurgitation I34.0 Cardiac valve disease etiology: etiology unspecified Chronic diastolic CHF (congestive heart failure) I50.32 Type 2 diabetes mellitus E11.9 DVT prophylaxis Z29.9 Time Spent (min) 35 (1) Osteomyelitis Laterality: unspecified laterality Osteomyelitis location: hand Osteomyelitis type: other acute Qualified Code(s): M86.149 - Other acute osteomyelitis, unspecified hand (2) Hypertension Hypertension type: essential hypertension Qualified Code(s): I10 - Essential (primary) hypertension (3) Aortic stenosis Cardiac valve disease etiology: etiology unspecified Qualified Code(s): I35.0 - Nonrheumatic aortic (valve) stenosis (4) Mitral regurgitation Cardiac valve disease etiology: etiology unspecified Qualified Code(s): I34.0 - Nonrheumatic mitral (valve) insufficiency
[2019-08-17] MEDS ORDERED: INSULIN GLARGINE SOLOSTAR 100 UNITS/ML 3 ML PEN SC SCH (21:00)
[2019-08-17] MEDS: SENNA 8.6 MG TAB PO SCH (21:20)
[2019-08-17] MEDS: ENOXAPARIN INJ 40 MG/0.4 ML SYR SQ SCH (21:21)
[2019-08-18] MEDS: CEFEPIME 2,000 MG in SYRINGE 7.5 ML IV SCH ×2 (05:29→15:11)
[2019-08-18] MEDS: VANCOMYCIN HCL 1,000 MG in SODIUM CHLORIDE 0.9% 250 ML IV SCH ×2 (05:30→15:11)
[2019-08-18] MEDS ORDERED: INSULIN ASPART 100 UNITS/ML 3 ML PEN SC SCH ×2 (07:30→11:30)
[2019-08-18] MEDS: CEROVITE ADV FORMULA TAB PO SCH (08:04)
[2019-08-18] MEDS: DOCUSATE SODIUM 100 MG CAP PO SCH (08:04)
[2019-08-18] MEDS: METOPROLOL SUCC 25MG EXT REL TAB PO SCH (08:05)
[2019-08-18] MEDS: CHOLECALCIFEROL 1,000 UNITS 25 MCG TAB PO SCH (08:05)
[2019-08-18] MEDS: PANTOprazole 40 MG TAB PO SCH (08:05)
[2019-08-18] MEDS: LOSARTAN POTASSIUM 25 MG TAB PO SCH (08:05)
--- NOTE | 2019-08-18 13:29 | Pharmacy Report ---
Pharmacy Glycemic Short Note 2 - Date of Service August 18, 2019 - Glycemic Short BSG Results (Last 24 hours): 08/17/19 08/17/19 08/18/19 17:15 20:27 08:16 POC Glucose 74 231 H 243 H 08/18/19 12:05 POC Glucose 231 H OUTPATIENT ANTIDIABETIC REGIMEN: * Jardiance 25 mg PO daily * Janumet ER 50-1000 mg 2 tabs PO daily * Levemir 8 units SQ HS * A1c = 9.3% on 08/11/2019 ASSESSMENT: * BSGs have been fairly labile during the past 24 hours (125, 247, 74, 231, 243). * Lantus needs to be increased slightly to improve fasting BSG. * Based on pre-lunch BSG yesterday, Novolog parameters tightened for breakfast c overage to provide additional prandial coverage for that meal. * Will continue to adjust as required. PLAN FOR INPATIENT GLYCEMIC CONTROL: * Hold outpatient oral diabetes medications * Basal insulin - increased * Lantus 12-15 units SQ HS, per scale * Bolus insulin * NovoLog per scale ACHS or Q6hrs while NPO * Goal Range: Low 110 mg/dL - High 140 mg/dL * Correction Factor: 20 mg/dL/unit for breakfast 25 mg/dL/unit for the remaining doses * Nutritional / Prandial insulin per carb ratio of 1 unit per 7 grams CHO consumed 1 unit per 9 grams CHO for the remaining doses PLAN FOR DISCHARGE: * Patient's A1c (9.3%) indicates sub-optimal glycemic control. * Patient would likely benefit from an adjustment in her glycemic regimen.
[2019-08-18] MEDS ORDERED: AMOXICILLIN/CLAVULANATE 875 MG TAB PO SCH (15:15)
--- NOTE | 2019-08-25 00:08 | Discharge Summary ---
Date of Service August 18, 2019 Admission HPI Per Admitting Provider Nahomi Harrington is an 84 year old female with T2DM, severe aortic stenosis and moderate aortic regurgitation who presents to the ER with pain and swelling in her left hand. She told the ER physician this has occurred over the past 2 days although she says she is unsure how long it has been going on to me. She thinks her thumbs have been eroding away with skin that the picks away for the last 4 years. Her thumbs are very itchy and she tries to cut off all the skin but wonders why it keeps coming back. She denies any prior fungal infections. She has not seen her PCP for this or been on antibiotics previously. She notes seeing her PCP in April but is unsure if this problem was present then. She notes no history of carpel tunnel syndrome although this is listed on her Powerchart problem list. She denies fevers, chills or discharge from the wounds. She is very concerned about needing to go to [facility] on August 16 for her TAVR procedure and I informed her they are unlikely to perform this in the setting of an active infection. She denies any recent significant worsening of shortness of breath, chest pain or dizziness on exertion to suggest an acute worsening of her aortic stenosis. Tried calling her sister on two separate occasions at home number provided for collateral history without answer. Patient reports her sister makes most of her medical decisions. Principal Diagnosis 32 Discharge Exam General: no distress Eyes: normal inspection, PERLL Respiratory: chest non tender, clear to auscultation, normal breath sounds, no respiratory distress, no accessory muscle use Cardiac: regular rate and rhythm, no rub or gallop, no murmur, no edema, no jvd GI/: active bowel sounds, no abd pain or tenderness, soft, non distended Extremities: normal range of motion, normal strength, non tender Neuro/Psych: alert and oriented x 3, normal mood and affect Skin: normal color, dry Discharge Data Allergies Allergy/AdvReac Type Severity Reaction Status Date / Time No Known Allergies Allergy Mild NONE Verified 02/09/19 19:29 Consultations 08/10/19 14:51 ED Decision to Admit Stat 08/10/19 17:17 Consult Orthopedic Surgery Routine 08/15/19 10:05 Consult Case Management - Discharge Planning Routine Procedures Performed Operation Date: 08/15/19 10:20 Actual Procedures p Left Thumb Partial Amputation(Left) - Matias Abernathy DO Hospital Course (1) Cellulitis of hand: Treated with vanc + cefepime Continue to Elevate left hand. Blood cultures ngtd. No tissue culture avaialble. Discussed with ortho, will discharge on augmentin tomorrow. 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 Consulted orthopedics - will change dressing tomorrow PICC placed - will remove before discharge. (3) Hypertension: Continue losartan (4) Aortic stenosis: Known severe , mod AR. Was to have TAVR on August 16. Surgery will be delayed until she completes her antibiotic regimen Talked with [facility] cardiology as well as patient's store clerk checker Dr. Guzman concerning need for rescheduling TAVR. They will get in touch with the patient (5) Mitral regurgitation: noted history of this. As above. (6) Chronic diastolic CHF (congestive heart failure): Noted history of this although not on Lasix, suspect related to valvular disease as above Continue metoprolol succinate and losartan. No apparent exacerbation (7) Type 2 diabetes mellitus: Frequently hyperglycemic Pt reports complication of peripheral neuropathy. Consult pharmacy glycemic control for basal bolus insulin regimen (stop home meds) HbA1C 9.3%. Diabetes education (8) DVT prophylaxis: Lovenox 40mg SQ daily Total Time Total Time Spent Total Time Spent (In Minutes): 32 Total Time Includes: Examination of the Patient, Discharge Planning and Medication Reconciliation Discharge Plan Discharge Items Patient Disposition: Home - Home Health Services Reason For Visit: LEFT HAND CELLULITIS/OSTEOMYELITIS Discharge Diagnosis: Left hand cellulitis Condition on Discharge: Good Activity: Resume your previous activity Non-emergency contact: Surgeon Call non-emergency contact if: your pain is worsening, your temperature is above 101.5, your wound has increased redness and your wound has increased drainage Follow-up/Referrals: Musa Banuelos MD [Primary Care Provider] - Matias Abernathy DO [Surgeon] - (10 to 14 days from the day of surgery. ) Diet: Carb Consistent or DM2 Addtl Attending Provider Instructions: You have been hospitalized for an acute medical problem. During your stay at [facility], we have made an effort to correct the problem that brought you to the hospital while keeping you as comfortable as possible. Medications were used to bring your condition under control and your discharge instructions will include directions for any medications you should take after leaving the hospital. Please make sure you see your Primary Care Provider as part of your follow up plan. Followup with PCP and ortho in 10 to 14 days from the day of surgery. Addtl Pest Control Supervisor Provider Instructions: ACTIVITY RECOMMENDATIONS: * Avoid lifting anything heavier than a medium water glass until your first post operative visit. SPECIAL CARE INSTRUCTIONS: * Daily dressing changes for the left thumb. After one week, and if there is minimal to no drainage, change dressing every other day.. * Some drainage onto the dressing may occur. This is normal. * If the bandage feels excessively tight, you may loosen the elastic bandage. Then call the physician's office for further instructions. * If possible, keep your hand elevated above the level of your heart for the first 2 post operative days. You may use a sling if necessary. * You should move your fingers regularly (50-100 motions per hour) unless otherwise instructed. SPECIAL PRECAUTIONS: * If you notice increased drainage, fever over 101 degrees F. or severe, unremitting pain, call your physician/office at . * You may have been prescribed pain medication. If you experience nausea and/or skin rash, discontinue this medication and contact our office for an alternative medication. FOLLOW UP VISIT: If appointment is not already scheduled: Please call [facility] to make a follow-up appointment with Dr. Abernathy in 10-14 days from the day of your surgery at . Pending Studies at Discharge: No Stand-Alone Forms: My [facility] [email or web address], Smoking Cessation Medications and DC Order Prescriptions: New amoxicillin-pot clavulanate [Augmentin] 875-125 mg tablet 1 tab PO BID 10 Days Qty: 20 RF: 0 Continued sitagliptin-metformin 50-1,000 mg tablet, ER multiphase 24 hr 2 tab PO DAILY RF: 0 cholecalciferol (vitamin D3) [Vitamin D3] 1,000 unit capsule 2,000 units PO DAILY Qty: 60 RF: 10 hypromellose 2.5 % Drops 1 drp OPHTHALMIC (EYE) QID PRN (Reason: Dry Eye(S)) RF: 0 aspirin [Ecotrin Low Strength] 81 mg tablet,delayed release (DR/EC) 81 mg PO Q OTHER DAY RF: 0 PreserVision AREDS [id number] [id number] Tablet 1 tab PO BID RF: 0 Multivitamin 50 Plus Tablet 1 tab PO DAILY RF: 0 metoprolol succinate 25 mg tablet extended release 24 hr 12.5 mg PO DAILY RF: 0 pantoprazole 40 mg Tablet,Delayed Release (Dr/Ec) 40 mg PO DAILY RF: 0 Jardiance 25 mg Tablet 25 mg PO DAILY RF: 0 losartan 25 mg tablet 25 mg PO DAILY RF: 0 Changed Levemir U-100 Insulin 100 unit/mL solution 14 unit subcut HS Qty: 0 RF: 0 Discharge Orders: Discharge Order (Routine); Ordered 08/18/19 Ordered By: Joel Hassan/Other Patient Handouts: Diabetes Type 2 Managing, Diabetes Healthy Meals, Diabetes Exercise Benefits, Diabetes Manage A1C Test Admission Data Admit Date/Time: 08/10/19 14:39 Attending Provider: Joel Johnson Admit Provider: Musa Gonzalez Primary Care Provider: Musa Banuelos Other Providers: Donnie Fagan ; [facility] ; Musa Gonzalez ; Matias Abenrathy Other Interventions: Discharge Summary Assessment (RN) Last Done: 08/18/19 15:40 DC Date/Time DO NOT enter until pt leaves facility: 08/18/19 16:59 Coding Level of Care Code D/C Day Management >30 mins Diagnoses Cellulitis of hand L03.119 Osteomyelitis M86.149 Laterality: unspecified laterality Osteomyelitis location: hand Osteomyelitis type: other acute Hypertension I10 Hypertension type: essential hypertension Aortic stenosis I35.0 Cardiac valve disease etiology: etiology unspecified Mitral regurgitation I34.0 Cardiac valve disease etiology: etiology unspecified Chronic diastolic CHF (congestive heart failure) I50.32 Type 2 diabetes mellitus E11.9 DVT prophylaxis Z29.9 Time Spent (min) 32
== END 2019-08-18 16:59 | disposition home health service (06) | DRG 629 ==
LOC: ED 12:07 → SUATTDRO 14:39 → 3E 14:39

== ENCOUNTER 2020-06-22 12:44 | Inpatient (IN) ==
[2020-06-22 14:19] LABS: Influenza A virus by PCR Negative (Neg); Influenza B virus by PCR Negative (Neg); RSV by PCR Negative (Neg); SARS CoV2 RNA(COVID-19) InHosp NEGATIVE (Negative)
--- NOTE | 2020-06-22 15:19 | Pre Anesthesia Assessment ---
Date of Service June 22, 2020 Pre Sedation Assessment Vital Signs Temp Pulse Resp BP Pulse Ox 06/22/20 13:09 98.4 F 96 H 20 147/92 H 95 Pre-Sedation Airway Assessment Smoking Status: Former smoker Hx Sleep Apnea: No Short, Thick Neck: No Thyromental Distance: > or= 3.5 Finger Breadths Oral Cavity: + WNL Mallampati Class: III ASA: ASA2 NPO Status Date of Last Intake of Fluids: 06/22/20 Time of Last Intake of Fluids: 07:00 Date of Last Intake of Solid Food: 06/22/20 Time of Last Intake of Solid Foods: 07:00 Notes The planned sedation has been discussed with the patient. Informed Consent was obtained. I have identified the patient, determined the appropriateness of sedation and have assessed the patient immediately prior to the procedure. All medicine(s) and interventions are by my order.
--- NOTE | 2020-06-22 15:19 | History & Physical Report ---
Date of Service June 22, 2020 Assessment & Plan (1) Pericardial effusion: Proceed with pericardiocentesis History of Present Illness Primary Care Provider: Musa Banuelos MD 85 F h/o severe post TAVR 12/2019, HTN, type 2 DM, mild LAD disease. Followed by Dr. Guzman. Atypical exertional chest symptoms, shortness of breath. Known to have longstanding moderate pericardial effusion. Repeat echo today showed large pericardial effusion with question pre-tamponade. Allergies Allergy/AdvReac Type Severity Reaction Status Date / Time naproxen [From Naprosyn] AdvReac Rash Verified 06/22/20 13:34 NSAIDS (Non-Steroidal AdvReac Rash Verified 06/22/20 13:34 Anti-Inflamma Home Medications Medication Instructions Recorded Confirmed Type Multivitamin 50 Plus 1 tab PO QAM 02/11/18 06/22/20 History PreserVision AREDS 1 tab PO BID 02/11/18 06/22/20 History aspirin [Ecotrin Low Strength] 81 mg PO Q OTHER DAY 02/11/18 06/22/20 History metoprolol succinate 12.5 mg PO QAM 02/09/19 06/22/20 History Jardiance 25 mg PO QAM 03/23/19 06/22/20 History Levemir U-100 Insulin 12 unit SUBCUT HS 04/25/20 06/22/20 History Trulicity 0.75 mg SUBCUT WK 04/25/20 06/22/20 History Vitamin D3 1 cap PO QAM 06/22/20 06/22/20 History insulin detemir U-100 14 unit SC DAILY 06/22/20 06/22/20 History metformin [Glucophage XR] 1,000 mg PO BID 06/22/20 06/22/20 History sitagliptin-metformin [Janumet XR] 1 tab PO DAILY 06/22/20 06/22/20 History Past Med/Surg History Medical History Aortic stenosis S/p TAVR 12/2019 Arthritis Bifascicular bundle branch block follows Dr. Guzman Chronic diastolic CHF (congestive heart failure) Diabetes Glucose fluctuates GERD (gastroesophageal reflux disease) Well controlled and stable Hearing deficit Very [place]- no hearing aids Hypertension Pericardial effusion Small circumferential pericardial effusion without evidence of tamponade noted on 01/2019 ECHO Poor historian pt unable to hear so her sister gave hx, sister poor historian Surgical History History of aortic valve replacement TAVR 12/2019 at [place]- follows with Dr. Guzman History of cardiac cath Mar 2019- no stents History of colonoscopy History of esophagogastroduodenoscopy (EGD) History of hip surgery bilat hips > rods due to breaks History of tooth extraction Hx of thumb surgery Right/ Left Status post cholecystectomy Status post shoulder surgery bilateral Family History Other Family history non-contributory Social History Smoking Status: Former smoker Second Hand Exposure: No; Hx Alcohol Use: No Hx Substance Use: No Preferred Language: Lao Communication Ability: Effective Visual Impairment: No Limitations Hearing Ability: Normal Reference Investigator Required: No Beliefs That Will Affect Care: None marital status: Single Current Living Situation: Family Current Living Situation Comment: with sister Other Information That Helps Us Care for You: No Feels Safe at Home: Yes Safety Concerns: Feels Safe At This Time Assistive Devices: Wheelchair Review of Systems All systems reviewed & are unremarkable except as noted in HPI & below Physical Exam Constitutional: WD/WN, vitals as above Eyes: no scleral abnormality Respiratory: normal respiratory effort, lungs clear to auscultation Cardiovascular: RRR, no murmur, no edema Gastrointestinal (Abdomen): Percussion/Palpation: + abdomen tender and abdomen soft Skin: no rashes, warm and dry Psychiatric: A+Ox3, euthymic affect ASA Classification ASA ASA2 Results & Data ([facility]) Vital Signs (Past 12 Hours) Vital Signs Temp Pulse Resp BP Pulse Ox 06/22/20 13:09 98.4 F 96 H 20 147/92 H 95
[2020-06-22] MEDS ORDERED: MIDAZOLAM HCL 1 MG/ML 2ML VIAL ONE (15:27)
[2020-06-22] MEDS ORDERED: fentaNYL citrate 100 MCG/2 ML VIAL ONE (15:27)
--- NOTE | 2020-06-22 16:33 | Post Anesthesia Assessment ---
Date of Service June 22, 2020 Post Sedation Assessment Vital Signs Temp Pulse Resp BP Pulse Ox 06/22/20 13:09 98.4 F 96 H 20 147/92 H 95 Recovery Score Activity: Moves 4 extremities Respiration: Deep Breath/Cough Circulation: +/-20% PreAnes Value Consciousness: Fully Awake Oxygen Saturation: O2 needed for >90% Discharge Sedation Level of Care: Fast Track Phase II Post Sedation Plan On clinical assessment, the patient appears to have tolerated the sedation without complications. Patient is recovering as anticipated. Patient will continue to be monitored by nursing and may be discharged when sedation discharge criteria are met per below protocol. Upon Completions of procedure up to 15 minutes continue every 5 minute vital signs and the P.A.R. score; then discharge to a Phase I or Fast Track to Phase II per the following guidelines: * Discharge Patient to appropriate Phase II area if PAR is 8 or greater or return to pre- procedure baseline. The post - procedure orders will be as directed. * If PAR score is less than 8 or not return to pre-procedure baseline then patient will follow Phase I monitoring till PAR is reached for Phase II. The Phase I may be done in procedure room or may call to secure a Phase I area. * If naloxone or flumazenil are used for reversal, hold in Phase I for continued monitoring from when last reversal dose was given for a minimum of 60 minutes or longer pending the nurse and/or physician discretion of patient condition before discharge to Phase II. Please call the Sedation Physician to re-evaluate and complete post-note for discharge to Phase II area. Do NOT discharge from procedure sedation or Phase 1 until post- sedation evaluation note is complete by procedure /sedation MD Sedation Discharge Instructions to be given to the patient at discharge to home.
[2020-06-22] MEDS ORDERED: ONDANSETRON INJ 2 MG/ML 2 ML VIAL IV PRN (16:40)
[2020-06-22] MEDS ORDERED: ALUMINUM/MAGNESIUM SUSP 30 ML UDC PO PRN (16:40)
[2020-06-22] MEDS ORDERED: DEXTROSE 50% 50 ML SYRINGE IV PRN (16:45)
[2020-06-22] MEDS ORDERED: GLUCOSE 40% GEL 15 GM TUBE PO PRN (16:45)
[2020-06-22] MEDS ORDERED: CARBOHYDRATES FOR HYPOGLYCEMIA PO PRN (16:45)
[2020-06-22] MEDS ORDERED: GLUCAGON FOR INJ 1 MG VIAL SQ PRN (16:45)
[2020-06-22] MEDS ORDERED: GLUCOSE 10 TABS/TUBE PO PRN (16:45)
--- NOTE | 2020-06-22 17:12 | Cardiac Catheterization ---
[facility] Data: Motion Picture Commentator Cardiac Status Clinical evaluation leading to the procedure CAD Presenation: Sx unlikely to be ischemic Anginal Classification: No Symptoms Cardiogenic Shock within 24 Hours: No Cardiac Arrest within 24 Hours: No Imaging Studies Past 6 Months: Yes Stress Studies Past 6 Months: No Diagnostic Physicians Name: Juancho Iverson MD Status: Elective Closure Device Percutaneous Entry Location: Radial Closure Device: Radial Band Recommendations: Medical Therapy and/or Counseling and Management Recommendatons Intraprocedure Events Significant Disection: No Perforation: No Cardiac Cath Procedure Full Procedure Date June 22, 2020 Pre-Procedure Diagnosis Pre-Procedure Diagnosis: Cardiothoracic Symptom (Pericardial effusion) AUC Score AUC Score: 7 Post-Procedure Diagnosis Post-Procedure Diagnosis: Normal Intracardiac Pressures Procedure(s) Performed Procedure(s) Performed: Pericardiocentesis Business Line Controller Juancho Iverson MD Rejogger(s) Nuha Estimated Blood Loss Estimated Blood Loss: 1020 ml bloody pericardial fluid Medication(s) Medication(s): Fentanyl, Lidocaine 1% and Versed Summary of Findings Pericardiocentesis Indication: Exertional dyspnea, chest discomfort with large pericardial effusion on echocardiogram and pretamponade physiology Procedure: Patient prepped and draped in sterile fashion Large circumferential pericardial effusion identified via echocardiogram Local lidocaine anesthesia Via apical approach under ultrasound guidance micropuncture needle guided into pericardial space Position in pericardial space confirmed via bubble study on ultrasound Opening pericardial pressure mean pressure of 12 6 Fr drain placed into pericardial space 1020 mL of bloody appearing fluid removed from pericardial space Fluid sent to lab for cell counts, culture and cytology Drain sutured in place Summary: 1. Successful pericardiocentesis with removal of 1020 mL of bloody appearing fluid. Recommendations: We will leave drain in place overnight. Drain every 8-12 hours. Follow-up lab studies Repeat limited echocardiogram in a.m. -Start colchicine Hemodynamics Rest Ao:: -- Final Ao: -- LV: -- Recommendations Recommendations: Medical Therapy and/or Counseling and Management Recommendatons Specimens Specimens: None Radiation Exposure (mGy) 47 Contrast (mls) -- Fluids (cc crystalloids) Fluids (cc crystalloids): 15 Drains Drains: pericardial drai Anesthesia moderate [id number] Procedural Complication(s) None Disposition ICU I attest to the content of the Intraoperative Record and any orders documented therein. Any exceptions are noted below. [facility] Card Cath Procedure Codes Therapeutic Services & Ancillary Proc Procedure 1: Cardiovascular Tx and Anc Procedures: 75939 Ultrasonic Guidance Pericardiocentesis Procedure 2: Cardiovascular Tx and Anc Procedures: 75170 Pericardiocentesis; initial Moderate Sedation Procedure 1: Sedation/Anesthesia: 22017 Mod Sedation by the same physician;Init15 Min Child Age 5 & Up Procedure 2: Sedation/Anesthesia: 91807 Mod Sedation by the same physician; Ea [id number] Minutes PG Care Time/CCT Total # of Minutes Spent Total Time Spent with Patient: Total time spent is greater than 50% in coordination of care (as documented) at patient's floor/unit and/or counseling patient:
[2020-06-22] MEDS ORDERED: PHARMACY GLYCEMIC MGMT CONSULT PRN (17:40)
[2020-06-22 17:46] LABS: Pericardial Fluid Appearance CLOUDY; Pericardial Fluid Color RED; RBC Pericardial Fluid (A) 817000 /uL; WBC Pericardial Fluid (A) 1788 /ul
[2020-06-22] MEDS: COLCHICINE 0.6 MG TAB PO SCH (19:11)
[2020-06-22 19:38] LABS: Eosinophils, Fluid 0 %; Lymphocytes, Fluid 46 %; Mono,Macrophage,Mesothelial 43 %; Neutrophils, Fluid 11 %
[2020-06-22] MEDS: INSULIN ASPART 100 UNITS/ML 3 ML PEN SC SCH (20:36)
[2020-06-22] MEDS ORDERED: NON-FORMULARY MEDICATION (Vitamins A,C,E-Zinc-Copper [Preservision Areds] 7,160-113-100 u PO SCH (21:00)
--- NOTE | 2020-06-22 21:16 | Pharmacy Report ---
Pharmacy Glycemic Short Note 2 - Date of Service June 22, 2020 - Glycemic Short BSG Results (Last 24 hours): 06/22/20 06/22/20 06/22/20 17:33 17:34 17:47 POC Glucose 61 L* 72 68 L* 06/22/20 06/22/20 17:50 20:25 POC Glucose 80 118 H OUTPATIENT ANTIDIABETIC REGIMEN: * Jardiance/Trulicity/Metformin ER/Levemir ASSESSMENT: * Patient admitted to ICU S/P cardiac cath. * BSGs have been below goal since admission. Will reassess basal needs in AM. PLAN FOR INPATIENT GLYCEMIC CONTROL: * Hold outpatient oral diabetes medications * Bolus insulin * NovoLog per scale ACHS or Q6hrs while NPO * Goal Range: Low 120 mg/dL - High 150 mg/dL * Correction Factor: 35 mg/dL/unit * Nutritional / Prandial insulin per carb ratio of 1 unit per 11 grams CHO consumed PLAN FOR DISCHARGE: *
[2020-06-22] MEDS: ACETAMINOPHEN 325 MG TAB PO PRN (22:10)
[2020-06-23 04:55] LABS: Hematocrit (blood only) 43.8 % (37-47); Hemoglobin 14.5 g/dL (12.0-16.0); Mean Corpuscular Hemoglobin 29.5 pg (25-34); Mean Corpuscular Hgb Conc 33.1 g/dL (32-36); Mean Platelet Volume 8.7 fL (7.4-10.4); Platelet Count 299 K/uL (130-400); RDW Coefficient of Variation 14.5 % (11.5-14.5); RDW Standard Deviation 47.3 fL (36.4-46.3); Red Blood Count 4.92 M/uL (4.2-5.4); White Blood Count 9.39 K/uL (4.8-10.8)
[2020-06-23] MEDS: COLCHICINE 0.6 MG TAB PO SCH (08:39)
[2020-06-23] MEDS: METOPROLOL SUCC 25MG EXT REL TAB PO SCH (08:39)
[2020-06-23] MEDS: INSULIN ASPART 100 UNITS/ML 3 ML PEN SC SCH ×4 (08:39→20:22)
--- NOTE | 2020-06-23 08:39 | XCELERA ---
[id number] \\[id number]___[id number]
[2020-06-23] MEDS: CEROVITE ADV FORMULA TAB PO SCH (08:40)
[2020-06-23] MEDS: ACETAMINOPHEN 325 MG TAB PO PRN (08:41)
--- NOTE | 2020-06-23 08:46 | XCELERA ---
[id number] \\[id number]___[id number]
--- NOTE | 2020-06-23 13:04 | Cardiology Progress Note ---
Date of Service June 23, 2020 Assessment & Plan (1) Pericardial effusion: 2. Post TAVR for severe aortic stenosis 3. Type 2 diabetes 4. Hypertension Recurrent small to moderate effusion on echo today Still with significant pericardial drain output but fluid lessening and fluid appears less bloody. Cytology negative for malignancy. Gram stain negative, cultures pending. We will plan to keep drain in overnight. Continue to drain every 8-12 hours. Repeat limited echo in a.m. Hopeful can pull drain tomorrow morning Continue colchicine. Addendum: 6pm drain - 30 cc orange fluid Admission and Anticipated Discharge Date Admission Date: June 22, 2020 Subjective No new complaints this morning. Denies chest pain or significant shortness of breath. 12 AM pericardial [id number] ml red fluid 8 AM pericardial [id number] ml orange fluid Review of Systems Review of Systems: All systems reviewed & are unremarkable except as noted in HPI & below Physical Exam Physical Exam: General: Comfortable HEENT: Sclerae anicteric Lungs: Clear to auscultation bilaterally Cardiac: Regular rate and rhythm, no murmurs, no rubs. Pericardial drain in place. No surrounding erythema. Vascular: 2+ radiail. Abdomen: Soft, nontender Extremities: Well perfused, no peripheral edema Neuro: Nonfocal Psych: Alert oriented Results & Data ([facility]) Vital Signs (Past 12 Hours) Vital Signs Temp Pulse Resp BP Pulse Ox 06/23/20 08:00 83 06/23/20 06:00 95 H 21 118/63 91 06/23/20 05:00 89 18 123/58 L 93 06/23/20 04:00 98.2 F 86 17 114/61 91 06/23/20 03:00 85 21 107/57 L 94 06/23/20 02:00 85 19 102/53 L 94 06/23/20 01:00 84 19 110/68 93 PG Care Time/CCT Total # of Minutes Spent Total Time Spent with Patient: Total time spent is greater than 50% in coordination of care (as documented) at patient's floor/unit and/or counseling patient: Coding Level of Care Code 68786 Subseq Hosp Care Lvl 3 Diagnoses Pericardial effusion I31.3
--- NOTE | 2020-06-23 15:16 | Pharmacy Report ---
Pharmacy Glycemic Short Note 2 - Date of Service June 23, 2020 - Glycemic Short BSG Results (Last 24 hours): 06/22/20 06/22/20 06/22/20 17:33 17:34 17:47 POC Glucose 61 L* 72 68 L* 06/22/20 06/22/20 06/23/20 17:50 20:25 06:17 POC Glucose 80 118 H 102 H 06/23/20 06/23/20 07:40 11:35 POC Glucose 88 159 H OUTPATIENT ANTIDIABETIC REGIMEN: * Jardiance/Trulicity/Metformin ER/Levemir- unclear, asked RN to confirm with Sister as patient likely unreliable ASSESSMENT: 4.8: * BSGs have been well controlled. Will continue with novolog scale and add a once daily lantus dose starting at dinner. Patient tolerating a diet. 06/22 * Patient admitted to ICU S/P cardiac cath. * BSGs have been below goal since admission. Will reassess basal needs in AM. PLAN FOR INPATIENT GLYCEMIC CONTROL: * Hold outpatient oral diabetes medications * Basal insulin with LANTUS 10 units SQ daily (first dose at dinner time) * Bolus insulin * NovoLog per scale ACHS or Q6hrs while NPO * Goal Range: Low 120 mg/dL - High 150 mg/dL * Correction Factor: 35 mg/dL/unit * Nutritional / Prandial insulin per carb ratio of 1 unit per 11 grams CHO consumed
[2020-06-23] MEDS ORDERED: INSULIN GLARGINE SOLOSTAR 100 UNITS/ML 3 ML PEN SC SCH (16:30)
[2020-06-24] MEDS: METOPROLOL SUCC 25MG EXT REL TAB PO SCH (07:40)
[2020-06-24] MEDS: COLCHICINE 0.6 MG TAB PO SCH (07:41)
[2020-06-24] MEDS: CEROVITE ADV FORMULA TAB PO SCH (07:41)
[2020-06-24] MEDS: INSULIN ASPART 100 UNITS/ML 3 ML PEN SC SCH ×4 (07:46→21:48)
--- NOTE | 2020-06-24 16:49 | Cardiology Progress Note ---
Date of Service June 24, 2020 Assessment & Plan (1) Pericardial effusion: 2. Post TAVR for severe aortic stenosis 3. Type [address] Iverson pulled pericardial drain earlier today. Did require recent dressing change due to serosanguineous drainage form site. Current dressing dry, will monitor. Cytology negative for malignancy. Gram stain negative, cultures negative thus far. Plan to repeat limited echo tomorrow am and if no significant reaccumulation will likely discharge. Home nursing has been arranged. Continue colchicine. Admission and Anticipated Discharge Date Admission Date: June 23, 2020 Subjective Patient is feeling well. Per nursing staff had minimal serosanguineous fluid from pericardial drain this AM. Drain pulled by Dr. Iverson. Pressure bandage recently needed changed due to drainage from site. Denies chest pain or dyspnea. Review of Systems Review of Systems: All systems reviewed & are unremarkable except as noted in HPI & below Physical Exam Physical Exam: General: Comfortable HEENT: Sclerae anicteric Lungs: Clear to auscultation bilaterally Cardiac: Regular rate and rhythm, no murmurs, no rubs. Pressure bandage in place, dry. Vascular: 2+ radial pulse Abdomen: Soft, nontender Extremities: Well perfused, no peripheral edema Neuro: Nonfocal Psych: Alert oriented Results & Data ([facility]) Vital Signs (Past 12 Hours) Vital Signs Temp Pulse Resp BP Pulse Ox 06/24/20 15:00 89 20 91 06/24/20 13:05 91 H 21 97/56 L 91 06/24/20 12:47 36.6 C 06/24/20 11:05 93 H 25 H 112/68 92 06/24/20 10:05 86 31 H 104/64 93 06/24/20 09:05 96 H 31 H 99/62 L 92 06/24/20 08:05 102 H 17 103/69 92 06/24/20 08:00 96 H 06/24/20 07:05 97 H 22 101/60 92 06/24/20 06:00 89 22 123/69 92 06/24/20 05:00 91 H 22 110/60 91 PG Care Time/CCT Total # of Minutes Spent Total Time Spent with Patient: Total time spent is greater than 50% in coordination of care (as documented) at patient's floor/unit and/or counseling patient: Coding Level of Care Code 73523 Subseq Hosp Care Lvl 3 Diagnoses Pericardial effusion I31.3
[2020-06-24] MEDS ORDERED: INSULIN GLARGINE SOLOSTAR 100 UNITS/ML 3 ML PEN SC SCH (21:00)
[2020-06-24] MEDS ORDERED: metFORMIN HCL ER 500 MG TABCR PO SCH (21:00)
[2020-06-25] MEDS: CEROVITE ADV FORMULA TAB PO SCH (08:44)
[2020-06-25] MEDS: COLCHICINE 0.6 MG TAB PO SCH (08:44)
[2020-06-25] MEDS: METOPROLOL SUCC 25MG EXT REL TAB PO SCH (08:44)
[2020-06-25] MEDS: INSULIN ASPART 100 UNITS/ML 3 ML PEN SC SCH ×2 (08:48→12:50)
[2020-06-25] MEDS ORDERED: ASPIRIN 81 MG ECTAB PO SCH (09:00)
[2020-06-25] MEDS ORDERED: CHOLECALCIFEROL 1,000 UNITS 25 MCG TAB PO SCH (09:00)
[2020-06-25] MEDS ORDERED: [UNRECOGNIZED DRUG - OTHER] PO SCH (09:00)
[2020-06-25] MEDS ORDERED: METFORMIN PO SCH (09:00)
[2020-06-25] MEDS ORDERED: SITAGLIPTIN PO SCH (09:00)
--- NOTE | 2020-06-25 14:44 | Discharge Summary ---
Date of Service June 25, 2020 Admission HPI Per Admitting Provider 85 F h/o severe post TAVR 12/2019, HTN, type 2 DM, mild LAD disease. Followed by Dr. Guzman. Atypical exertional chest symptoms, shortness of breath. Known to have longstanding moderate pericardial effusion. Repeat echo today showed large pericardial effusion with question pre-tamponade. Discharge Data Procedures Performed Operation Date: 06/22/20 13:00 Actual Procedures p Pericardiocentesis Initial - Isaias Iverson MD Hospital Course (1) Pericardial effusion: 2. Post TAVR for severe aortic stenosis 3. Type 2 diabetes 4. Hypertension Patient underwent pericardiocentesis via apical approach under ultrasound guidance on 06/22/2020. 1020 mL of bloody appearing fluid removed. Pericardial drain left in place. Over next 48 hrs drain output significantly decreased and appeared serosanguineous by hospital day 3. Pericardial fluid Cytology negative for malignancy. Gram stain negative, cultures negative thus far. Pericardial drain removed on hospital day 3. Follow-up echo on hospital day 4 showed only a small residual posterior effusion with no evidence of early tamponade. Patient feeling well and discharged to home on new colchicine. Aspirin held. Follow-up with Dr. Guzman in 2-3 weeks with repeat echo at that time. Discharge Instructions Home Medications Multivitamin 50 Plus 1 tab PO QAM 02/11/18 [History Confirmed 06/22/20] PreserVision AREDS 1 tab PO BID 02/11/18 [History Confirmed 06/22/20] metoprolol succinate 12.5 mg PO QAM 02/09/19 [History Confirmed 06/22/20] Jardiance 25 mg PO QAM 03/23/19 [History Confirmed 06/22/20] Levemir U-100 Insulin 12 unit SUBCUT HS 04/25/20 [History Confirmed 06/22/20] Trulicity 0.75 mg SUBCUT WK 04/25/20 [History Confirmed 06/22/20] Janumet XR 1 tab PO DAILY 06/22/20 [History Confirmed 06/22/20] Vitamin D3 1 cap PO QAM 06/22/20 [History Confirmed 06/22/20] insulin detemir U-100 14 unit SC DAILY 06/22/20 [History Confirmed 06/22/20] metformin [Glucophage XR] 1,000 mg PO BID 06/22/20 [History Confirmed 06/22/20] colchicine [Colcrys] 0.6 mg PO QAM #30 tab 06/25/20 [Rx] Coding Level of Care Code D/C Day Management <30 mins Diagnoses Pericardial effusion I31.3
[2020-06-28 21:41] LABS: Pericardial Fld,Total Protein 6.7 g/dL
== END 2020-06-25 15:55 | disposition home health service (06) | DRG 315 ==
LOC: 1E 12:44 → CC 12:44 → 2S 06-24 19:16

== ENCOUNTER 2021-04-24 12:48 | Inpatient (IN) ==
[2021-04-24] MEDS ORDERED: MoRPHine SULFATE 4 MG/ML 1 ML CARP\\VIAL IV PRN (13:21)
--- NOTE | 2021-04-24 13:30 | Emergency Department Note ---
Impression & Plan Closed fracture of distal end of left femur, Yoon-prosthetic femoral shaft fracture ED Provider Note NAME: RYAN NAPIER AGE: 86 SEX: F : 1935 ARRIVES VIA: Ambulance INFORMANT: Patient, ED PROVIDER(S): Edwin Huertas DO CHIEF COMPLAINT: Knee pain HPI: The patient is an 86-year-old female who presented to emergency department for an evaluation of knee pain. The patient fell 2 days ago. She had swelling and knee pain. She was seen by the medical providers at [facility]. She had outpatient x-rays which revealed an abnormality. [facility] was consulted as they are familiar with this patient. She was sent to the emergency department for further evaluation and possible inpatient management. The p atient denies having any headache. She did not strike her head or hurt her neck. She states the pain does go into her hip. She states the pain is mild to moderate with elevation of the leg but becomes very severe with any ambulation or movement of the left knee. The patient denies having any numbness. She was using her walker when she fell forward onto her left leg. ROS: See above HPI for pertinent positives & negatives. A total of 10 systems reviewed and were otherwise negative. PAST MEDICAL HISTORY: See Below PAST SURGICAL HISTORY: See Below FAMILY HISTORY: See Below SOCIAL HISTORY: See Below HOME MEDICATIONS: See Below ALLERGIES: See Below VITALS: See Below PHYSICAL EXAMINATION: GENERAL: The patient is awake and alert. She is nonanxious appearing. EYES: The conjunctivae are clear. The pupils are round and reactive. EARS, NOSE, MOUTH AND THROAT: The nose is without any evidence of any deformity. NECK: The neck is nontender and supple. RESPIRATORY: Normal respiratory effort is noted there is no evidence of wheezing rhonchi or rales CARDIOVASCULAR: Regular rate and rhythm noted there no murmurs rubs or gallops normal S1 normal S2. GASTROINTESTINAL: The abdomen is soft. Abdomen is nontender. BACK: No midline tenderness or or step-off noted range of motion in flexion extension as well as rotation no signs of muscle spasm noted MUSCULOSKELETAL/EXTREMITIES: There is significant swelling and pain noted over the left knee. The pain appears to be at the distal left femur. Range of motion was deferred but there is no instability to anterior posterior testing. SKIN: Skin is warm and dry. Pulses are symmetric in both feet. NEUROLOGIC: Patient is awake alert and oriented x3. MEDICAL DECISION MAKING: The patient is an 86-year-old female who presented to the emergency department for an evaluation of knee pain. The patient had a fall 2 days ago. The patient landed on her left knee. She had an outpatient x-ray that did reveal a fracture. The fracture appeared to be a periprosthetic fracture from a hip surgery. The patient was treated with pain medication emergency department. I discussed her case with the on-call orthopedic physician for the patient's primary orthopedic group. I also discussed this case with the on-call [facility] hospitalist. Triage Nursing notes reviewed. Prior medical records reviewed Vital Signs: reviewed and remarkable for no significant abnormalities Differential diagnosis: Fracture, subluxation, dislocation, contusion, ligamentous injury, neurovascular, compartment syndrome, rhabdomyolysis, as well as other pathologies. ER treatment provided: See below Diagnostics interpreted by me: ECG: none Cardiac Monitoring: An order was placed for continuous cardiac monitoring. The monitor shows a rate of 80 bpm with sinus rhythm. Laboratory studies: As stated above and show below. Imaging studies: See below Consultation(s): I discussed this case with Stephon who is on-call for the [facility]. They will evaluate the patient but likely she will require surgical management. I discussed this case with Dr. Spaulding who is on-call for the [facility] group. Past Med/Surg History Medical History Aortic stenosis S/p TAVR 12/2019 Arthritis Bifascicular bundle branch block follows Dr. Guzman Chronic diastolic CHF (congestive heart failure) Diabetes Glucose fluctuates GERD (gastroesophageal reflux disease) Well controlled and stable Hearing deficit Very KLAMATH- no hearing aids Hypertension Pericardial effusion Small circumferential pericardial effusion without evidence of tamponade noted on 01/2019 ECHO Poor historian pt unable to hear so her sister gave hx, sister poor historian Surgical History History of aortic valve replacement TAVR 12/2019 at [place]- follows with Dr. Guzman History of cardiac cath Mar 2019- no stents History of colonoscopy History of esophagogastroduodenoscopy (EGD) History of hip surgery bilat hips > rods due to breaks History of tooth extraction Hx of thumb surgery Right/ Left Status post cholecystectomy Status post shoulder surgery bilateral Family History Other Family history non-contributory Social History Smoking Status: Never smoker Second Hand Exposure: No; Hx Alcohol Use: No Hx Substance Use: No Preferred Language: Turkmen Communication Ability: Effective Visual Impairment: No Limitations Hearing Ability: Normal Health Education Director Required: No Beliefs That Will Affect Care: None marital status: Single Current Living Situation: Prison Current Living Situation Comment: with sister Other Information That Helps Us Care for You: No Feels Safe at Home: Yes Safety Concerns: Feels Safe At This Time Assistive Devices: Walker and Wheelchair Allergies Allergies Allergy/AdvReac Type Severity Reaction Status Date / Time naproxen [From Naprosyn] AdvReac Rash Verified 04/24/21 15:40 NSAIDS (Non-Steroidal AdvReac Rash Verified 04/24/21 15:40 Anti-Inflamma Home Meds Home Medications Medication Instructions Recorded Confirmed vitamins A,C,T-gzmu-feciww 7,160 1 tab PO BIDM 02/11/18 04/24/21 unit-113 mg-100 unit tablet (PreserVision AREDS) metoprolol succinate 25 mg 12.5 mg PO QAM 02/09/19 04/24/21 tablet,extended release 24 hr empagliflozin 25 mg tablet 25 mg PO QAM 03/23/19 04/24/21 (Jardiance) dulaglutide 0.75 mg/0.5 mL 0.75 mg SUBCUT WK 04/25/20 04/24/21 subcutaneous pen injector (Trulicity) insulin detemir U-100 100 unit/mL 14 unit SUBCUT DAILY 04/25/20 04/24/21 subcutaneous solution (Levemir U-100 Insulin) acetaminophen 325 mg tablet 650 mg PO Q6H PRN MDD 3 GRAMS/24 04/24/21 04/24/21 (Tylenol) HOURS aspirin 81 mg tablet,delayed 81 mg PO QAM 04/24/21 04/24/21 release buspirone 10 mg tablet 10 mg PO TIDM 04/24/21 04/24/21 carboxymethylcellulose sodium 0.5 2 drp OPHTHALMIC (EYE) TID 04/24/21 04/24/21 % eye drops in a dropperette (Refresh Plus) cholecalciferol (vitamin D3) 50 50 mcg PO QAM 04/24/21 04/24/21 mcg (2,000 unit) capsule (Vitamin D3) citalopram 10 mg tablet (Celexa) 10 mg PO HS 04/24/21 04/24/21 diclofenac sodium 1 % topical gel 2 g TOPICAL QID 04/24/21 04/24/21 insulin aspart U-100 100 unit/mL 0 unit SUBCUT QPM 04/24/21 04/24/21 subcutaneous solution (Novolog U-100 Insulin aspart) insulin aspart U-100 100 unit/mL 1 sliding scale dose SUBCUT ACHS 04/24/21 0 04/24/21 subcutaneous solution (Novolog U-100 Insulin aspart) metformin 500 mg tablet,extended 1,000 mg PO BID 04/24/21 04/24/21 release 24hr multivit with 1 tab PO QAM 04/24/21 04/24/21 eputcggj-wrus-NS-lutein 8 mg iron-400 mcg-300 mcg tablet (Centrum Silver Women) oxycodone 5 mg tablet 5 mg PO Q6H PRN 04/24/21 04/24/21 Previous Rx's Medication Instructions Recorded colchicine 0.6 mg tablet (Colcrys) 0.6 mg PO QAM #30 tab 06/25/20 Results & Data (ED) Vital Signs Vital Signs - 24 hr 04/24/21 12:55 04/24/21 13:48 04/24/21 16:41 Temperature 37.1 C Temperature Source Oral Pulse Rate 100 H Pulse Rate [Apical] 100 H 62 Respiratory Rate 18 16 Respiratory Effort / Characteristics Non-Labored Respiratory Depth Normal Blood Pressure 129/80 Blood Pressure [Left Arm] 129/80 Blood Pressure Mean 96 Blood Pressure Mean [Left Arm] 96 Pulse Oximetry 96 96 96 Oxygen Delivery Method Room Air Room Air Sepsis Recent Fever Within 48 Hours No Sepsis New/Unexplained Change in Mental Status N/A Sepsis Action Taken by Nursing No Action Required Home Medications Current Medication List: was personally reviewed by me Laboratory Data Attestation: I reviewed the patient's lab results. Result diagrams: 04/24/21 13:36 04/24/21 13:36 Lab Results 04/24/21 04/24/21 04/24/21 Range/Units 13:36 13:36 13:36 WBC 10.48 (4.8-10.8) K/uL RBC 3.95 L (4.2-5.4) M/uL Hgb 11.8 L (12.0-16.0) g/dL Hct 35.9 L (37-47) % MCV 90.9 (80-100) fL MCH 29.9 (25-34) pg MCHC 32.9 (32-36) g/dL RDW Std Deviation 47.2 H (36.4-46.3) fL RDW Coeff of Sharri 14.1 (11.5-14.5) % Plt Count 351 (130-400) K/uL MPV 8.8 (7.4-10.4) fL Immature Gran % (Auto) 0.3 % Neut % (Auto) 72.0 % Lymph % (Auto) 14.7 % [place] % (Auto) 9.4 % Eos % (Auto) 3.2 % Baso % (Auto) 0.4 % Neut # (Auto) 7.55 H (1.4-6.5) K/uL Lymph # (Auto) 1.54 (1.2-3.4) K/uL [place] # (Auto) 0.98 H (0.11-0.59) K/uL Eos # (Auto) 0.34 (0-0.5) K/uL Baso # (Auto) 0.04 (0-0.2) K/uL Immature Gran # (Auto) 0.03 H (0.00-0.02) K/uL PT 10.4 (9.0-12.0) Seconds INR 1.0 (0.9-1.1) APTT 27.4 (21.0-31.0) Seconds PTT Ratio 1.0 Sodium 134 L (136-145) mmol/L Potassium 3.9 (3.5-5.1) mmol/L Chloride 98 (98-107) mmol/L Carbon Dioxide 30 (21-32) mmol/L Anion Gap 6 (3-11) BUN 15 (6-23) mg/dl Creatinine 0.38 L (0.6-1.2) mg/dl Est Cr Clr Drug Dosing 105.5 ml/min Est GFR ( Amer) 112.0 ml/min Est GFR (Non-Af Amer) 96.6 ml/min BUN/Creatinine Ratio 39.5 H (10-20) Glucose 218 H (70-99(Fasting)) mg/dl Calcium 8.3 L (8.5-10.1) mg/dl Total Bilirubin 0.7 (0.2-1.0) mg/dl AST 19 (13-39) U/L ALT 19 (7-52) U/L Alkaline Phosphatase 72 (34-104) U/L Total Protein 6.2 (6.0-8.3) gm/dl Albumin 3.2 L (3.4-5.0) gm/dl Globulin 3.0 (2.5-4.0) gm/dl Albumin/Globulin Ratio 1.1 (0.9-2) Lipase 37 (11-82) U/L Administered Medications Buspirone HCl (Buspirone 5 Mg Tab) 10 mg PO TIDM SINDY Stop: 05/24/21 20:41 Last Admin: 04/25/21 08:59 Dose: 10 mg Documented by: [id number] Admin: 04/24/21 21:54 Dose: 10 mg Documented by: [id number] Citalopram Hydrobromide (Citalopram 20 Mg Tab) 10 mg PO HS [facility] Stop: 05/24/21 20:59 Last Admin: 04/24/21 21:55 Dose: 10 mg Documented by: [id number] Colchicine (Colchicine 0.6 Mg Tab) 0.6 mg PO QAM SINDY Stop: 05/25/21 08:59 Last Admin: 04/25/21 08:58 Dose: 0.6 mg Documented by: [id number] Heparin Sodium (Porcine) (Heparin Sod 5,000 Unit/0.5 Ml Vial) 5,000 units SQ Q12 SINDY Stop: 05/24/21 20:59 Last Admin: 04/25/21 09:00 Dose: 5,000 units Documented by: [id number] Admin: 04/24/21 21:56 Dose: 5,000 units Documented by: [id number] Insulin Aspart (Insulin Aspart Per Unit) 0 units SC ACHS SINDY Stop: 05/25/21 07:29 Last Admin: 04/25/21 09:08 Dose: 3 units Documented by: [id number] Cosigned by: [id number] Metoprolol Succinate (Metoprolol Succ 25mg Ext Rel Tab) 12.5 mg PO QAM [facility] Stop: 05/25/21 08:59 Last Admin: 04/25/21 08:58 Dose: 12.5 mg Documented by: [id number] Oxycodone HCl (Oxycodone Hcl Ir 5 Mg Tab (Immediate Release)) 2.5 mg PO Q4H [facility] Stop: 05/08/21 16:59 Last Admin: 04/25/21 09:07 Dose: 2.5 mg Documented by: [id number] Admin: 04/25/21 06:09 Dose: Not Given Documented by: [id number] Admin: 04/25/21 01:51 Dose: 2.5 mg Documented by: [id number] Admin: 04/24/21 21:53 Dose: 2.5 mg Documented by: [id number] Admin: 04/24/21 17:32 Dose: 2.5 mg Documented by: [id number] Polyethylene Glycol (Polyethylene (Miralax) 17 Gm Pack) 17 gm PO DAILY [facility] Stop: 05/25/21 08:59 Last Admin: 04/25/21 09:08 Dose: 17 gm Documented by: [id number] Senna/Docusate Sodium (Docusate Sodium/Senna 50/8.6mg Tab) 1 tab PO QAM [facility] Stop: 05/25/21 08:59 Last Admin: 04/25/21 09:08 Dose: 1 tab Documented by: [id number] Vitamin D (Cholecalciferol 1,000 Units 25 Mcg Tab) 2,000 units PO QAM [facility] Stop: 05/25/21 08:59 Last Admin: 04/25/21 08:59 Dose: 2,000 units Documented by: [id number] Discontinued Medications Insulin Aspart (Insulin Aspart Per Unit) 0 units SC 0200 ONE Stop: 04/25/21 02:01 Last Admin: 04/25/21 01:55 Dose: Not Given Documented by: [id number] Insulin Detemir (Insulin Detemir Flexpen/Flex Touch 100 Units/Ml 3ml) 10 units SC DAILY [facility] Stop: 05/25/21 08:59 Last Admin: 04/25/21 10:14 Dose: 10 units Documented by: [id number] Cosigned by: [id number] Imaging Data Radiologist's Impression: Hip/Pelvis X-Ray 04/24/21 13:21 XR hip LT 2V w pelvis CLINICAL HISTORY: Left hip pain following fall. COMPARISON: Pelvis and left hip radiographs February 11, 2018. FINDINGS: Incidental note is made of several calcified fibroids. Sacroiliac joints and symphysis pubis are intact. No acute fracture within the pelvis or hips is identified. Bilateral proximal femoral internal fixations with trochanteric nails are noted. There is extensive heterotopic ossification associated with the healed intertrochanteric/subtrochanteric fractures. The acute distal left femoral fracture is partially imaged on this exam. This is better depicted on the left knee radiographs. IMPRESSION: 1. No acute fracture within the pelvis or hips. Status post bilateral proximal femoral internal fixations, as described above. 2. Acute distal left femoral fracture better depicted on the left knee radiographs. Please see that report for further description. ACT 112: Negative or not required by law. Electronically signed by: Elder Plasencia M.D. 04/24/2021 2:03 PM Knee X-Ray 04/24/21 13:21 XR knee LT 1 or 2V routine CLINICAL HISTORY: fall. Left knee pain COMPARISON STUDY: No previous studies for comparison. TECHNIQUE: AP and lateral left knee views FINDINGS: Bones: The distal end of an intramedullary shelby is present within the femur. There is evidence for a comminuted, displaced fracture present involving the distal third of the femoral shaft, laterally and extending both anteriorly and posteriorly as seen on the lateral radiograph. There is no extension into the knee joint. The tibia and patella are intact. There is no lytic or blastic lesion. Joints: There is mild narrowing of the medial joint compartment. There is no ev idence for an intra-articular effusion. The bones are in anatomic alignment. Soft tissues: There is no focal soft tissue abnormality. There is no radiopaque foreign body. IMPRESSION: Comminuted, mildly displaced fracture involving the distal third of the femoral shaft laterally with fracture lines extending both anteriorly and posteriorly. ACT 112: Negative or not required by law. Electronically signed by: Munir Portillo M.D. 04/24/2021 2:[address] 04/24/21 14:[address] DOSE: 1334.57 mGy.cm HISTORY: Left femoral pain. fall TECHNIQUE: Multiaxial CT images of the left femur were performed and reformatted in the sagittal and coronal plane without the use of contrast. A dose lowering technique was utilized adhering to the principles of ALARA. COMPARISON: Left hip and left knee 04/24/2021. FINDINGS: The visualized pelvic bones are intact. Internal fixation of an old, healed proximal left femoral fracture with an intramedullary shelby and i nterlocking femoral neck pin. No acute fracture or dislocation within the proximal left femur. There is a comminuted and mildly displaced fracture involving the mid to distal shaft of the left femur which extends to the distal metaphysis. This does not appear to extend to the articular surface of the distal femur. The fracture results in angulation of the distal interlocking femoral screw. The fragments demonstrate up to 1.3 cm of lateral displacement and 2 cm of overlap. The fracture slightly impacted. Small left knee effusion. Soft tissue swelling within the distal left thigh. IMPRESSION: There is an acute comminuted and displaced fracture within the distal left femur described above. ACT 112: Negative or not required by law. Electronically signed by: Donavan Martinez M.D. 04/24/2021 3:09 PM Discharge Plan Visit Data Chief Complaint: Knee Injury/Pain ED Provider: Edwin Huertas Discharge Problem: Closed fracture of distal end of left femur, Yoon-prosthetic femoral shaft fracture Patient Disposition: Admitted As Inpatient Discharge Instructions Interventions: ED Discharge Assessment Last Done: 04/24/21 19:47
[2021-04-24 13:49] LABS: Basophils # (auto) 0.04 K/uL (0-0.2); Basophils % (auto) 0.4 %; Eosinophils # (auto) 0.34 K/uL (0-0.5); Eosinophils % (auto) 3.2 %; Hematocrit (blood only) 35.9 % (37-47); Hemoglobin 11.8 g/dL (12.0-16.0); Immature Granulocytes # (auto) 0.03 K/uL (0.00-0.02); Immature Granulocytes % (auto) 0.3 %; Lymphocytes # (auto) 1.54 K/uL (1.2-3.4); Lymphocytes % (auto) 14.7 %; Mean Corpuscular Hemoglobin 29.9 pg (25-34); Mean Corpuscular Hgb Conc 32.9 g/dL (32-36); Mean Corpuscular Volume 90.9 fL (80-100); Mean Platelet Volume 8.8 fL (7.4-10.4); Monocytes # (auto) 0.98 K/uL (0.11-0.59); Monocytes % (auto) 9.4 %; Neutrophils # (auto) 7.55 K/uL (1.4-6.5); Platelet Count 351 K/uL (130-400); RDW Coefficient of Variation 14.1 % (11.5-14.5); RDW Standard Deviation 47.2 fL (36.4-46.3); Red Blood Count 3.95 M/uL (4.2-5.4); White Blood Count 10.48 K/uL (4.8-10.8)
--- NOTE | 2021-04-24 14:02 | XRay Report ---
XR knee LT 1 or 2V routine CLINICAL HISTORY: fall. Left knee pain COMPARISON STUDY: No previous studies for comparison. TECHNIQUE: AP and lateral left knee views FINDINGS: Bones: The distal end of an intramedullary shelby is present within the femur. There is evidence for a c omminuted, displaced fracture present involving the distal third of the femoral shaft, laterally and extending both anteriorly and posteriorly as seen on the lateral radiograph. There is no extension in to the knee joint. The tibia and patella are intact. There is no lytic or blastic lesion. Joints: There is mild narrowing of the medial joint compartment. There is no evidence for an intra-ar ticular effusion. The bones are in anatomic alignment. Soft tissues: There is no focal soft tissue abnormality. There is no radiopaque foreign body. IMPRESSION: Comminuted, mildly displaced fracture involving the distal third of the femoral shaft lat erally with fracture lines extending both anteriorly and posteriorly. ACT 112: Negative or not required by law. Electronically signed by: Munir Portillo M.D. 04/24/2021 2:00 PM
--- NOTE | 2021-04-24 14:05 | XRay Report ---
XR hip LT 2V w pelvis CLINICAL HISTORY: Left hip pain following fall. COMPARISON: Pelvis and left hip radiographs February 11, 2018. FINDINGS: Incidental note is made of several calcified fibroids. Sacroiliac joints and symphysis pub is are intact. No acute fracture within the pelvis or hips is identified. Bilateral proximal femoral internal fixations with trochanteric nails are noted. There is extensive heterotopic ossification ass ociated with the healed intertrochanteric/subtrochanteric fractures. The acute distal left femoral fr acture is partially imaged on this exam. This is better depicted on the left knee radiographs. IMPRESSION: 1. No acute fracture within the pelvis or hips. Status post bilateral proximal femoral internal fixat ions, as described above. 2. Acute distal left femoral fracture better depicted on the left knee radiographs. Please see that r eport for further description. ACT 112: Negative or not required by law. Electronically signed by: Elder Plasencia M.D. 04/24/2021 2:03 PM
[2021-04-24 14:09] LABS: Partial Thromboplastin Time 27.4 Seconds (21.0-31.0); Prothrombin Time 10.4 Seconds (9.0-12.0)
[2021-04-24 14:26] LABS: Albumin Globulin Ratio 1.1 (0.9-2); Albumin Level 3.2 gm/dl (3.4-5.0); BUN Creatinine Ratio 39.5 (10-20); Bilirubin,Total 0.7 mg/dl (0.2-1.0); Calcium 8.3 mg/dl (8.5-10.1); Creatinine Clr Calc Pharmacy 105.5 ml/min; Est GFR (Non-African American) 96.6 ml/min; Potassium 3.9 mmol/L (3.5-5.1); Total Protein 6.2 gm/dl (6.0-8.3)
--- NOTE | 2021-04-24 15:11 | CT Scan Report ---
LEFT FEMUR CT CT DOSE: 1334.57 mGy.cm HISTORY: Left femoral pain. fall TECHNIQUE: Multiaxial CT images of the left femur were performed and reformatted in the sagittal and coronal plane without the use of contrast. A dose lowering technique was utilized adhering to the pr inciples of JUAQUIN. COMPARISON: Left hip and left knee 04/24/2021. FINDINGS: The visualized pelvic bones are intact. Internal fixation of an old, healed proximal left f emoral fracture with an intramedullary shelby and interlocking femoral neck pin. No acute fracture or di slocation within the proximal left femur. There is a comminuted and mildly displaced fracture involvi ng the mid to distal shaft of the left femur which extends to the distal metaphysis. This does not ap pear to extend to the articular surface of the distal femur. The fracture results in angulation of th e distal interlocking femoral screw. The fragments demonstrate up to 1.3 cm of lateral displacement a nd 2 cm of overlap. The fracture slightly impacted. Small left knee effusion. Soft tissue swelling wi thin the distal left thigh. IMPRESSION: There is an acute comminuted and displaced fracture within the distal left femur described above. ACT 112: Negative or not required by law. Electronically signed by: Donavan Martinez M.D. 04/24/2021 3:09 PM
--- NOTE | 2021-04-24 15:27 | Orthopedic Consultation ---
Date of Consultation April 24, 2021 Assessment & Plan (1) Closed fracture of left distal femur: X-rays reviewed. Case will be discussed with Dr. Abernathy. Await medical service input to see if patient will be stable for any type of surgery. Also await Dr. Abernathy's input for plans for treatment. Supervising Physician Co-Signing Physician Notes Patient seen and examined. All radiographs and CT scan reviewed. Will require ORIF of left comminuted displaced distal femoral periprosthetic fracture. B Michela MONTENEGRO History of Present Illness Reason for Consultation: Left distal femur fracture. History of Present Illness Patient is an 86-year-old white female known to our practice who has previously had a left and right trochanteric femoral nailing. The left was done in [address] Velazquez. Patient resides at [facility]. She has limited memory of her fall. She is not a good historian and is also hard of hearing. There is a question of her falling approximately 2 days ago. She was apparently having some difficulty ambulating and it was felt she needed to be evaluated. She was brought to the emergency room here at [facility] and x-rays were taken. It was found that she had a left comminuted periprosthetic distal femur fracture. We have been asked to see her for her fracture. Allergies Allergy/AdvReac Type Severity Reaction Status Date / Time naproxen [From Naprosyn] AdvReac Rash Verified 04/24/21 15:40 NSAIDS (Non-Steroidal AdvReac Rash Verified 04/24/21 15:40 Anti-Inflamma Home Medications Medication Instructions Recorded Confirmed Type vitamins A,C,S-oaxa-abyxun 7,160 1 tab PO BIDM 02/11/18 04/24/21 History unit-113 mg-100 unit tablet (PreserVision AREDS) metoprolol succinate 25 mg 12.5 mg PO QAM 02/09/19 04/24/21 History tablet,extended release 24 hr empagliflozin 25 mg tablet 25 mg PO QAM 03/23/19 04/24/21 History (Jardiance) dulaglutide 0.75 mg/0.5 mL 0.75 mg SUBCUT WK 04/25/20 04/24/21 History subcutaneous pen injector (Trulicity) insulin detemir U-100 100 unit/mL 14 unit SUBCUT DAILY 04/25/20 04/24/21 History subcutaneous solution (Levemir U-100 Insulin) colchicine 0.6 mg tablet (Colcrys) 0.6 mg PO QAM #30 tab 06/25/20 04/24/21 Rx acetaminophen 325 mg tablet 650 mg PO Q6H PRN MDD 3 GRAMS/24 04/24/21 04/24/21 History (Tylenol) HOURS aspirin 81 mg tablet,delayed 81 mg PO QAM 04/24/21 04/24/21 History release buspirone 10 mg tablet 10 mg PO TIDM 04/24/21 04/24/21 History carboxymethylcellulose sodium 0.5 2 drp OPHTHALMIC (EYE) TID 04/24/21 04/24/21 History % eye drops in a dropperette (Refresh Plus) cholecalciferol (vitamin D3) 50 50 mcg PO QAM 04/24/21 04/24/21 History mcg (2,000 unit) capsule (Vitamin D3) citalopram 10 mg tablet (Celexa) 10 mg PO HS 04/24/21 04/24/21 History diclofenac sodium 1 % topical gel 2 g TOPICAL QID 04/24/21 04/24/21 History insulin aspart U-100 100 unit/mL 0 unit SUBCUT QPM 04/24/21 04/24/21 History subcutaneous solution (Novolog U-100 Insulin aspart) insulin aspart U-100 100 unit/mL 1 sliding scale dose SUBCUT ACHS 04/24/21 04/24/21 History subcutaneous solution (Novolog U-100 Insulin aspart) metformin 500 mg tablet,extended 1,000 mg PO BID 04/24/21 04/24/21 History release 24hr multivit with 1 tab PO QAM 04/24/21 04/24/21 History mnofgjxv-fsbd-RV-lutein 8 mg iron-400 mcg-300 mcg tablet (Centrum Silver Women) oxycodone 5 mg tablet 5 mg PO Q6H PRN 04/24/21 04/24/21 History Patient History Medical History Aortic stenosis S/p TAVR 12/2019 Arthritis Bifascicular bundle branch block follows Dr. Guzman Chronic diastolic CHF (congestive heart failure) Diabetes Glucose fluctuates GERD (gastroesophageal reflux disease) Well controlled and stable Hearing deficit Very IONE- no hearing aids Hypertension Pericardial effusion Small circumferential pericardial effusion without evidence of tamponade noted on 01/2019 ECHO Poor historian pt unable to hear so her sister gave hx, sister poor historian Surgical History History of aortic valve replacement TAVR 12/2019 at [place]- follows with Dr. Guzman History of cardiac cath Mar 2019- no stents History of colonoscopy History of esophagogastroduodenoscopy (EGD) History of hip surgery bilat hips > rods due to breaks History of tooth extraction Hx of thumb surgery Right/ Left Status post cholecystectomy Status post shoulder surgery bilateral Family History Other Family history non-contributory Social History Smoking Status: Never smoker Second Hand Exposure: No; Hx Alcohol Use: No Hx Substance Use: No Preferred Language: Malay Communication Ability: Effective Visual Impairment: No Limitations Hearing Ability: Normal Computer Assembler Required: No Beliefs That Will Affect Care: None marital status: Single Current Living Situation: [facility] Current Living Situation Comment: with sister Other Information That Helps Us Care for You: No Feels Safe at Home: Yes Safety Concerns: Feels Safe At This Time Assistive Devices: Brace/Splint/Immobilizer Physical Exam Physical Exam: On examination, the patient is awake and alert but oriented to person only. She is in no acute distress. Pleasant and cooperative. When I asked her about pain, she states that she is having some pain in the left lower extremity. She denies pain elsewhere. On examination, her left thigh is notably swollen compared to the right. She has a leg length discrepancy with the left leg being shorter than the right. It is soft and mildly tender over the distal third of the femur. There is no overt bruising noted. I am able to palpate the knee as well as the distal third of the femur and she has mild discomfort. She has no pain on palpation of her extremity below the knee. Calves are soft and nontender. She has good range of motion of her left ankle and toes. She denies any decrease sensation. I am able to gently lift her left lower extremity off the bed and take her through some gentle range of motion of her left hip which is nontender. I am able to also take her through some gentle range of motion of her left knee which she states is mildly tender. She does have some medial and lateral collateral laxity of the left knee. I am able to take her through gentle range of motion of her right lower extremity without any discomfort. Range of motion is essentially within normal limits. She has a well-healed scar on her left hip from previous TFN as well as on her right hip from her other surgery. She does not complain of any pain in the shoulders, elbows, and wrists. I can take her through gentle range of motion at this time without much in the way of discomfort. Distal pulses are equal bilaterally of the upper and lower extremities. There is no gross motor or sensory loss seen at this time. Results & Data ([facility]) Vital Signs (Past 12 Hours) Vital Signs Temp Pulse Pulse Resp BP BP Pulse Ox 04/24/21 13:48 96 04/24/21 12:55 37.1 C 100 H 100 H 18 129/80 129/80 96 Laboratory Results Laboratory Results WBC 10.48 K/uL (4.8-10.8) 04/24/21 13:36 RBC 3.95 M/uL (4.2-5.4) L 04/24/21 13:36 Hgb 11.8 g/dL (12.0-16.0) L 04/24/21 13:36 Hct 35.9 % (37-47) L 04/24/21 13:36 MCV 90.9 fL (80-100) 04/24/21 13:36 MCH 29.9 pg (25-34) 04/24/21 13:36 MCHC 32.9 g/dL (32-36) 04/24/21 13:36 RDW Std Deviation 47.2 fL (36.4-46.3) H 04/24/21 13:36 RDW Coeff of Sharri 14.1 % (11.5-14.5) 04/24/21 13:36 Plt Count 351 K/uL (130-400) 04/24/21 13:36 MPV 8.8 fL (7.4-10.4) 04/24/21 13:36 Immature Gran % (Auto) 0.3 % 04/24/21 13:36 Neut % (Auto) 72.0 % 04/24/21 13:36 Lymph % (Auto) 14.7 % 04/24/21 13:36 [place] % (Auto) 9.4 % 04/24/21 13:36 Eos % (Auto) 3.2 % 04/24/21 13:36 Baso % (Auto) 0.4 % 04/24/21 13:36 Neut # (Auto) 7.55 K/uL (1.4-6.5) H 04/24/21 13:36 Lymph # (Auto) 1.54 K/uL (1.2-3.4) 04/24/21 13:36 [place] # (Auto) 0.98 K/uL (0.11-0.59) H 04/24/21 13:36 Eos # (Auto) 0.34 K/uL (0-0.5) 04/24/21 13:36 Baso # (Auto) 0.04 K/uL (0-0.2) 04/24/21 13:36 Immature Gran # (Auto) 0.03 K/uL (0.00-0.02) H 04/24/21 13:36 PT 10.4 Seconds (9.0-12.0) 04/24/21 13:36 INR 1.0 (0.9-1.1) 04/24/21 13:36 APTT 27.4 Seconds (21.0-31.0) 04/24/21 13:36 PTT Ratio 1.0 04/24/21 13:36 Sodium 134 mmol/L (136-145) L 04/24/21 13:36 Potassium 3.9 mmol/L (3.5-5.1) 04/24/21 13:36 Chloride 98 mmol/L (98-107) 04/24/21 13:36 Carbon Dioxide 30 mmol/L (21-32) 04/24/21 13:36 Anion Gap 6 (3-11) 04/24/21 13:36 BUN 15 mg/dl (6-23) 04/24/21 13:36 Creatinine 0.38 mg/dl (0.6-1.2) L 04/24/21 13:36 Est Cr Clr Drug Dosing 105.5 ml/min 04/24/21 13:36 Est GFR ( Amer) 112.0 ml/min 04/24/21 13:36 Est GFR (Non-Af Amer) 96.6 ml/min 04/24/21 13:36 BUN/Creatinine Ratio 39.5 (10-20) H 04/24/21 13:36 Glucose 218 mg/dl (70-99(Fasting)) H 04/24/21 13:36 Calcium 8.3 mg/dl (8.5-10.1) L 04/24/21 13:36 Total Bilirubin 0.7 mg/dl (0.2-1.0) 04/24/21 13:36 AST 19 U/L (13-39) 04/24/21 13:36 ALT 19 U/L (7-52) 04/24/21 13:36 Alkaline Phosphatase 72 U/L (34-104) 04/24/21 13:36 Total Protein 6.2 gm/dl (6.0-8.3) 04/24/21 13:36 Albumin 3.2 gm/dl (3.4-5.0) L 04/24/21 13:36 Globulin 3.0 gm/dl (2.5-4.0) 04/24/21 13:36 Albumin/Globulin Ratio 1.1 (0.9-2) 04/24/21 13:36 Lipase 37 U/L (11-82) 04/24/21 13:36 SARS-CoV-2, RNA, NAAT NEGATIVE (NEGATIVE) 04/24/21 Unknown Impressions Hip/Pelvis X-Ray 04/24/21 13:21 XR hip LT 2V w pelvis CLINICAL HISTORY: Left hip pain following fall. COMPARISON: Pelvis and left hip radiographs February 11, 2018. FINDINGS: Incidental note is made of several calcified fibroids. Sacroiliac joints and symphysis pubis are intact. No acute fracture within the pelvis or hips is identified. Bilateral proximal femoral internal fixations with trochanteric nails are noted. There is extensive heterotopic ossification associated with the healed intertrochanteric/subtrochanteric fractures. The acute distal left femoral fracture is partially imaged on this exam. This is better depicted on the left knee radiographs. IMPRESSION: 1. No acute fracture within the pelvis or hips. Status post bilateral proximal femoral internal fixations, as described above. 2. Acute distal left femoral fracture better depicted on the left knee radiographs. Please see that report for further description. ACT 112: Negative or not required by law. Electronically signed by: Elder Plasencia M.D. 04/24/2021 2:03 PM Knee X-Ray 04/24/21 13:21 XR knee LT 1 or 2V routine CLINICAL HISTORY: fall. Left knee pain COMPARISON STUDY: No previous studies for comparison. TECHNIQUE: AP and lateral left knee views FINDINGS: Bones: The distal end of an intramedullary shelby is present within the femur. There is evidence for a comminuted, displaced fracture present involving the distal third of the femoral shaft, laterally and extending both anteriorly and posteriorly as seen on the lateral radiograph. There is no extension into the knee joint. The tibia and patella are intact. There is no lytic or blastic lesion. Joints: There is mild narrowing of the medial joint compartment. There is no evidence for an intra-articular effusion. The bones are in anatomic alignment. Soft tissues: There is no focal soft tissue abnormality. There is no radiopaque foreign body. IMPRESSION: Comminuted, mildly displaced fracture involving the distal third of the femoral shaft laterally with fracture lines extending both anteriorly and posteriorly. ACT 112: Negative or not required by law. Electronically signed by: Munir Portillo M.D. 04/24/2021 2:[address] 04/24/21 14:[address] DOSE: 1334.57 mGy.cm HISTORY: Left femoral pain. fall TECHNIQUE: Multiaxial CT images of the left femur were performed and reformatted in the sagittal and coronal plane without the use of contrast. A dose lowering technique was utilized adhering to the principles of ALARA. COMPARISON: Left hip and left knee 04/24/2021. FINDINGS: The visualized pelvic bones are intact. Internal fixation of an old, healed proximal left femoral fracture with an intramedullary shelby and interlocking femoral neck pin. No acute fracture or dislocation within the proximal left femur. There is a comminuted and mildly displaced fracture involving the mid to distal shaft of the left femur which extends to the distal metaphysis. This does not appear to extend to the articular surface of the distal femur. The fracture results in angulation of the distal interlocking femoral screw. The fragments demonstrate up to 1.3 cm of lateral displacement and 2 cm of overlap. The fracture slightly impacted. Small left knee effusion. Soft tissue swelling within the distal left thigh. IMPRESSION: There is an acute comminuted and displaced fracture within the distal left femur described above. ACT 112: Negative or not required by law. Electronically signed by: Donavan Martinez M.D. 04/24/2021 3:09 PM
--- NOTE | 2021-04-24 15:49 | History & Physical Report ---
Date of Service April 24, 2021 Assessment & Plan (1) Closed fracture of left distal femur: Plan: -Femur CT revealed acute comminuted and displaced fracture within the distal left femur. There is internal fixation of an old healed proximal left femoral fracture with an intramedullary shelby and interlocking femoral neck pin. -Patient currently in the immobilizer, pain being managed with Tylenol and oxycodone. -Patient discussed with orthopedics, who is familiar with this patient. She has a history of mild LAD disease see on cardiac cath in March 2019, as well as a history of diastolic heart failure and large pericardial effusion in the past. We will order an EKG and echocardiogram in order to assess whether this patient is a potential surgical candidate. (2) Aortic stenosis: Plan: -s/p TAVR in December 2019. -Followed by [facility]. (3) Chronic diastolic CHF (congestive heart failure): Plan: -Echo from June 2020 revealed EF 70%, no obvious regional wall abnormalities. -Echo ordered today for pre-operative clearance. (4) CAD (coronary artery disease): Plan: -Cardiac cath in March 2019 revealed mild LAD disease. Patient does not complain of chest pain or shortness of breath today. -Continue metoprolol and aspirin. -History of pericardial effusion requiring pericardiocentesis in June 2020. Placed on colchicine daily. Echo in January 05 revealed near complete resolution. We will continue colchicine while hospitalized. -EKG ordered, pending. (5) Type 2 diabetes mellitus: Plan: -Currently on 14 units of Levemir daily. Will continue this during hospitalizat ion. -Accu-Cheks ACHS with sliding scale coverage. -Hold Jardiance, Trulicity, Metformin during hospitalization. (6) Mood disorder: Plan: -Continue BuSpar and citalopram. (7) DVT prophylaxis: Plan: -SCDs ordered. -Heparin SQ Q12 History of Present Illness Chief Complaint: left knee pain Primary Care Provider: [facility] This is an 86 y/o female with a PMH of aortic stenosis s/p TAVR 12/2019, pericardial effusion in June 2020, RBBB, DM2, and previous left and right intertrochanteric femoral nailing who presents to emergency department from [facility] for an evaluation of knee pain after a ground level fall 2 days ago. Patient was ambulating with her walker and reaching for something when she tripped and landed on her knee. She was initially evaluated by providers at [facility] and had outpatient x-rays which revealed an abnormality. [facility] was consulted as they are familiar with this patient, who sent her to the emergency department for further evaluation and possible inpatient management. Patient is very hard of hearing and a poor historian, but reports knee pain, denies pain elsewhere, denies hitting her head, LOC, confusion, nausea, vomiting, palpitations or chest pain preceding or after fall. She states the pain is mild to moderate with elevation of the leg but becomes very severe with any ambulation or movement of the left knee. It was found that she had a left comminuted distal femur fracture. Allergies Allergy/AdvReac Type Severity Reaction Status Date / Time naproxen [From Naprosyn] AdvReac Rash Verified 04/24/21 15:40 NSAIDS (Non-Steroidal AdvReac Rash Verified 04/24/21 15:40 Anti-Inflamma Home Medications Medication Instructions Recorded Confirmed Type vitamins A,C,X-jaxz-hgqjjw 7,160 1 tab PO BIDM 02/11/18 04/24/21 History unit-113 mg-100 unit tablet (PreserVision AREDS) metoprolol succinate 25 mg 12.5 mg PO QAM 02/09/19 04/24/21 History tablet,extended release 24 hr empagliflozin 25 mg tablet 25 mg PO QAM 03/23/19 04/24/21 History (Jardiance) dulaglutide 0.75 mg/0.5 mL 0.75 mg SUBCUT WK 04/25/20 04/24/21 History subcutaneous pen injector (Trulicity) insulin detemir U-100 100 unit/mL 14 unit SUBCUT DAILY 04/25/20 04/24/21 History subcutaneous solution (Levemir U-100 Insulin) colchicine 0.6 mg tablet (Colcrys) 0.6 mg PO QAM #30 tab 06/25/20 04/24/21 Rx acetaminophen 325 mg tablet 650 mg PO Q6H PRN MDD 3 GRAMS/24 04/24/21 04/24/21 History (Tylenol) HOURS aspirin 81 mg tablet,delayed 81 mg PO QAM 04/24/21 04/24/21 History release buspirone 10 mg tablet 10 mg PO TIDM 04/24/21 04/24/21 History carboxymethylcellulose sodium 0.5 2 drp OPHTHALMIC (EYE) TID 04/24/21 04/24/21 History % eye drops in a dropperette (Refresh Plus) cholecalciferol (vitamin D3) 50 50 mcg PO QAM 04/24/21 04/24/21 History mcg (2,000 unit) capsule (Vitamin D3) citalopram 10 mg tablet (Celexa) 10 mg PO HS 04/24/21 04/24/21 History diclofenac sodium 1 % topical gel 2 g TOPICAL QID 04/24/21 04/24/21 History insulin aspart U-100 100 unit/mL 0 unit SUBCUT QPM 04/24/21 04/24/21 History subcutaneous solution (Novolog U-100 Insulin aspart) insulin aspart U-100 100 unit/mL 1 sliding scale dose SUBCUT ACHS 04/24/21 04/24/21 History subcutaneous solution (Novolog U-100 Insulin aspart) metformin 500 mg tablet,extended 1,000 mg PO BID 04/24/21 04/24/21 History release 24hr multivit with 1 tab PO QAM 04/24/21 04/24/21 History mvpdlfqy-iaru-BK-lutein 8 mg iron-400 mcg-300 mcg tablet (Centrum Silver Women) oxycodone 5 mg tablet 5 mg PO Q6H PRN 04/24/21 04/24/21 History Past Med/Surg History Medical History Aortic stenosis S/p TAVR 12/2019 Arthritis Bifascicular bundle branch block follows Dr. Guzman Chronic diastolic CHF (congestive heart failure) Diabetes Glucose fluctuates GERD (gastroesophageal reflux disease) Well controlled and stable Hearing deficit Very PALA- no hearing aids Hypertension Pericardial effusion Small circumferential pericardial effusion without evidence of tamponade noted on 01/2019 ECHO Poor historian pt unable to hear so her sister gave hx, sister poor historian Surgical History History of aortic valve replacement TAVR 12/2019 at [place]- follows with Dr. Guzman History of cardiac cath Mar 2019- no stents History of colonoscopy History of esophagogastroduodenoscopy (EGD) History of hip surgery bilat hips > rods due to breaks History of tooth extraction Hx of thumb surgery Right/ Left Status post cholecystectomy Status post shoulder surgery bilateral Family History Other Family history non-contributory Social History Smoking Status: Never smoker Second Hand Exposure: No; Hx Alcohol Use: No Hx Substance Use: No Preferred Language: Croatian Communication Ability: Effective Visual Impairment: No Limitations Hearing Ability: Normal Health And Safety Instructor Required: No Beliefs That Will Affect Care: None marital status: Single Current Living Situation: Senior Care Current Living Situation Comment: with sister Other Information That Helps Us Care for You: No Feels Safe at Home: Yes Safety Concerns: Feels Safe At This Time Assistive Devices: Walker and Wheelchair Review of Systems Review of Systems: Constitutional: No fever, sweats or chills Eyes: No diplopia, no worsening or blurred vision ENT: normal hearing, no trouble swallowing Respiratory: No cough, sputum, dyspnea at rest or on exertion Cardiovascular: No chest pain, tightness or palpitations Abdomen: No pain, nausea, vomiting, diarrhea or constipation Musculoskeletal: Reports left knee pain and swelling; not other joint pain or s welling Neurologic: No weakness, numbness/tingling, or balance problems Psychiatric: No anxiety or depression Skin: No rash or itch Physical Exam Physical Exam: General: awake, alert, no apparent distress Head: Normocephalic, atraumatic ENT: PERRL, EOMI, no pharyngeal exudate, mucous membranes moist Chest: Clear to auscultation, on room air, no adventitious breath sounds Cardiac: Regular rate and rhythm, no murmur, no JVD, normal peripheral pulses, good capillary refill Abdominal: NABS x 4 quadrants, soft, nontender to palpation, no rebound, guarding or tenderness Extremities: Left knee swollen, wrapped in knee immobilizer prior to my exam. Patient unable to move extremity due to pain. All other joints without swelling, ecchymosis, or pain on exam. Psych: Normal mood and affect Neuro: AAO x 3, strength intact bilaterally and rated 5/5, no motor deficits, speech is clear, no peripheral sensory deficits Skin: no rash or erythema Results & Data Results & Data ([facility]) Vital Signs (Past 12 Hours) Vital Signs Temp Pulse Pulse Resp BP BP Pulse Ox 04/24/21 13:48 96 04/24/21 12:55 37.1 C 100 H 100 H 18 129/80 129/80 96 Laboratory Results Abnormal lab results 04/24/21 04/24/21 Range/Units 13:36 13:36 RBC 3.95 L (4.2-5.4) M/uL Hgb 11.8 L (12.0-16.0) g/dL Hct 35.9 L (37-47) % RDW Std Deviation 47.2 H (36.4-46.3) fL Neut # (Auto) 7.55 H (1.4-6.5) K/uL [place] # (Auto) 0.98 H (0.11-0.59) K/uL Immature Gran # (Auto) 0.03 H (0.00-0.02) K/uL Sodium 134 L (136-145) mmol/L Creatinine 0.38 L (0.6-1.2) mg/dl BUN/Creatinine Ratio 39.5 H (10-20) Glucose 218 H (70-99(Fasting)) mg/dl Calcium 8.3 L (8.5-10.1) mg/dl Albumin 3.2 L (3.4-5.0) gm/dl Diagnostic Findings Hip/Pelvis X-Ray 04/24/21 13:21 XR hip LT 2V w pelvis CLINICAL HISTORY: Left hip pain following fall. COMPARISON: Pelvis and left hip radiographs February 11, 2018. FINDINGS: Incidental note is made of several calcified fibroids. Sacroiliac joints and symphysis pubis are intact. No acute fracture within the pelvis or hips is identified. Bilateral proximal femoral internal fixations with trochanteric nails are noted. There is extensive heterotopic ossification associated with the healed intertrochanteric/subtrochanteric fractures. The acute distal left femoral fracture is partially imaged on this exam. This is better depicted on the left knee radiographs. IMPRESSION: 1. No acute fracture within the pelvis or hips. Status post bilateral proximal femoral internal fixations, as described above. 2. Acute distal left femoral fracture better depicted on the left knee radiographs. Please see that report for further description. Knee X-Ray 04/24/21 13:21 XR knee LT 1 or 2V routine CLINICAL HISTORY: fall. Left knee pain COMPARISON STUDY: No previous studies for comparison. TECHNIQUE: AP and lateral left knee views FINDINGS: Bones: The distal end of an intramedullary shelby is present within the femur. There is evidence for a comminuted, displaced fracture present involving the distal third of the femoral shaft, laterally and extending both anteriorly and posteriorly as seen on the lateral radiograph. There is no extension into the knee joint. The tibia and patella are intact. There is no lytic or blastic lesion. Joints: There is mild narrowing of the medial joint compartment. There is no evidence for an intra-articular effusion. The bones are in anatomic alignment. Soft tissues: There is no focal soft tissue abnormality. There is no radiopaque foreign body. IMPRESSION: Comminuted, mildly displaced fracture involving the distal third of the femoral shaft laterally with fracture lines extending both anteriorly and posteriorly. Femur CT 04/24/21 14:[address] DOSE: 1334.57 mGy.cm HISTORY: Left femoral pain. fall TECHNIQUE: Multiaxial CT images of the left femur were performed and reformatted in the sagittal and coronal plane without the use of contrast. A dose lowering technique was utilized adhering to the principles of ALARA. COMPARISON: Left hip and left knee 04/24/2021. FINDINGS: The visualized pelvic bones are intact. Internal fixation of an old, healed proximal left femoral fracture with an intramedullary shelby and interlocking femoral neck pin. No acute fracture or dislocation within the proxi mal left femur. There is a comminuted and mildly displaced fracture involving the mid to distal shaft of the left femur which extends to the distal metaphysis. This does not appear to extend to the articular surface of the distal femur. The fracture results in angulation of the distal interlocking femoral screw. The fragments demonstrate up to 1.3 cm of lateral displacement and 2 cm of overlap. The fracture slightly impacted. Small left knee effusion. Soft tissue swelling within the distal left thigh. IMPRESSION: There is an acute comminuted and displaced fracture within the distal left femur described above. Medications Administered Current Medications Morphine Sulfate (Morphine Sulfate 4 Mg/Ml 1 Ml Carp\Vial) 4 mg IV Q30M PRN PRN Reason: Pain Stop: 05/08/21 13:20 Oxycodone HCl (Oxycodone Hcl Ir 5 Mg Tab (Immediate Release)) 2.5 mg PO Q4H SINDY Stop: 05/08/21 16:59 Last Admin: 04/24/21 17:32 Dose: 2.5 mg Documented by: Polyethylene Glycol (Polyethylene (Miralax) 17 Gm Pack) 17 gm PO DAILY SINDY Stop: 05/25/21 08:59 Senna/Docusate Sodium (Docusate Sodium/Senna 50/8.6mg Tab) 1 tab PO QAM SINDY Stop: 05/25/21 08:59 Code Status & VTE Plan Code Status Full Code Supervising Physician Co-Signing Physician Notes Attending Attestation & Admission Note - Pt seen/examined, chart reviewed, care plan d/w NIDHI Szymanski. I agree w/ the siu components of her documentation. 86yo female - [facility] resident - with h/o nonobstructive CAD, s/p TAVR, h/o large pericardial effusion s/p pericardiocentesis in 2020, DM, HTN - presented with a fall 48 hours prior to admission, striking the left leg/knee region. Has had pain since. Outpatient x-rays revealed distal left femur fracture, and patient was sent to the ER for evaluation. During my assessment she had a knee immobilizer in place on the left leg. She complained of mild left leg pain only. She is quite hearing impaired and it was challenging to communicate with her but she seemed to deny any other complaints. PMH/PSH/allergies/meds/sochx/famhx - reviewed VSS, afebrile, o2 sats wnl gen - NAD, pleasant ears - severe hearing impairment mouth - MMM neck - no JVD heart - tachy, s1 s2, 1/6 TARIK LLSB lungs - CTA b/l abd - soft NT ND BS+ ext - left leg in large knee immobilizer; right leg without edema; pulses b/l feet 2+ labs reviewed imaging reviewed EKG - my reading - NSR, IRBBB, nonspecific ST changes III, AVF A/P: 1. L distal femur fracture/periprosthetic fracture 2. previous h/o b/l hip fractures s/p ORIF 3. DM, HTN 4. h/o pericardial effusion s/p pericardiocentesis - 2020 - 1000cc of bloody fluid obtained, path negative, cultures neg, afb negative 5. h/o s/p TAVR Ortho consult for #1 check 25-OH vit D level while here pain control with PO tylenol, PO oxy prn, IV dilaudid prn if pain not relieved by oral meds agree with echo to reassess pericardium, EF, valves knee immobilizer to L leg, and Non-weightbearing to that leg DVT proph - heparin SC bid Msua Spaulding MD PG Care Time/CCT Total # of Minutes Spent Total Time Spent with Patient: Total time spent is greater than 50% in coordination of care (as documented) at patient's floor/unit and/or counseling patient: Coding Level of Care Code 69547 Initial Inpt Care Lvl 3 Diagnoses Closed fracture of left distal femur S72.402A Type 2 diabetes mellitus E11.9 DVT prophylaxis Z29.9 Aortic stenosis I35.0 Cardiac valve disease etiology: etiology unspecified CAD (coronary artery disease) I25.10 Chronic diastolic CHF (congestive heart failure) I50.32 Mood disorder F39 (1) Aortic stenosis Cardiac valve disease etiology: etiology unspecified Qualified Code(s): I35.0 - Nonrheumatic aortic (valve) stenosis
[2021-04-24] MEDS: oxyCODONE HCL IR 5 MG TAB (IMMEDIATE RELEASE) PO SCH ×2 (17:32→21:53)
[2021-04-24] MEDS ORDERED: PHARMACY GLYCEMIC MGMT CONSULT PRN (20:42)
[2021-04-24] MEDS ORDERED: ONDANSETRON INJ 2 MG/ML 2 ML VIAL IV PRN (20:42)
[2021-04-24] MEDS ORDERED: CARBOHYDRATES FOR HYPOGLYCEMIA PO PRN (20:42)
[2021-04-24] MEDS ORDERED: GLUCOSE 10 TABS/TUBE PO PRN (20:42)
[2021-04-24] MEDS ORDERED: GLUCAGON FOR INJ 1 MG VIAL SQ PRN (20:42)
[2021-04-24] MEDS ORDERED: GLUCOSE 40% GEL 15 GM TUBE PO PRN (20:42)
[2021-04-24] MEDS ORDERED: DEXTROSE 50% 50 ML SYRINGE IV PRN (20:42)
[2021-04-24] MEDS ORDERED: POLYETHYLENE (MIRALAX) 17 GM PACK PO PRN (20:42)
[2021-04-24] MEDS ORDERED: NON-FORMULARY MEDICATION (Vitamins A,C,E-Zinc-Copper [Preservision Areds] 7,160-113-100 u PO SCH (21:00)
[2021-04-24] MEDS: busPIRone 5 MG TAB PO SCH (21:54)
[2021-04-24] MEDS: CITALOPRAM 20 MG TAB PO SCH (21:55)
[2021-04-24] MEDS: HEPARIN SOD 5,000 UNIT/0.5 ML VIAL SQ SCH (21:56)
[2021-04-24 22:18] LABS: Appearance Urine Clear (Clear); Bilirubin Urine Negative (Negative); Blood Urine Negative (Negative); Color Urine Yellow; Glucose Urine UA 3+ (Negative); Ketones Urine Negative (Negative); Leukocyte Esterase Urine Negative (Negative); Nitrite Urine Negative (Negative); Protein Urine Negative (Negative); Specific Gravity Urine 1.026 (1.000-1.030); Urobilinogen Urine Negative (Negative); pH Urine 7.5 (4.5-7.5)
[2021-04-25] MEDS: oxyCODONE HCL IR 5 MG TAB (IMMEDIATE RELEASE) PO SCH ×6 (01:51→20:36)
[2021-04-25] MEDS ORDERED: INSULIN ASPART PER UNIT SC ONE (02:00)
[2021-04-25] MEDS: METOPROLOL SUCC 25MG EXT REL TAB PO SCH (08:58)
[2021-04-25] MEDS: COLCHICINE 0.6 MG TAB PO SCH (08:58)
[2021-04-25] MEDS: CHOLECALCIFEROL 1,000 UNITS 25 MCG TAB PO SCH (08:59)
[2021-04-25] MEDS: busPIRone 5 MG TAB PO SCH ×3 (08:59→17:21)
[2021-04-25] MEDS ORDERED: VITAMIN D3 PO SCH (09:00)
[2021-04-25] MEDS ORDERED: ASPIRIN 81 MG ECTAB PO SCH (09:00)
[2021-04-25] MEDS: HEPARIN SOD 5,000 UNIT/0.5 ML VIAL SQ SCH ×2 (09:00→20:32)
[2021-04-25] MEDS ORDERED: INSULIN DETEMIR FLEXPEN/FLEX TOUCH 100 UNITS/ML 3ML SC SCH (09:00)
[2021-04-25] MEDS ORDERED: INSULIN DETEMIR U SC SCH (09:00)
[2021-04-25] MEDS: DOCUSATE SODIUM/SENNA 50/8.6MG TAB PO SCH (09:08)
[2021-04-25] MEDS: POLYETHYLENE (MIRALAX) 17 GM PACK PO SCH (09:08)
[2021-04-25] MEDS: INSULIN ASPART PER UNIT SC SCH ×4 (09:08→20:40)
--- NOTE | 2021-04-25 11:28 | Pharmacy Report ---
Pharmacy Glycemic Short Note 2 - Date of Service April 25, 2021 - Glycemic Short BSG Results (Last 24 hours): 04/24/21 04/24/21 04/25/21 13:36 20:22 01:49 Glucose 218 H POC Glucose 185 H 103 H 04/25/21 08:08 Glucose POC Glucose 81 OUTPATIENT ANTIDIABETIC REGIMEN: * Levemir 14 units daily, Novolog SSI, Jardiance, Trulicity, metformin * A1c 8.2% 01/2021 ASSESSMENT: * 86 year old admitted with femur fracture. Pharmacy consulted for glycemic management * Fasting BSG this AM 81 mg/dL - per notes, patient received home Levemir dose yesterday. Fasting BSG below goal range for patient, therefore will plan to reduce dose by ~25% * Will trial stress of 2 dosing for novolog for now. Notes suggest possible surgery tomorrow 04/26 PLAN FOR INPATIENT GLYCEMIC CONTROL: * Hold outpatient oral diabetes medications * Basal insulin * Lantus 10 units daily * Bolus insulin * NovoLog per scale ACHS or Q6hrs while NPO * Goal Range: Low 120 mg/dL - High 160 mg/dL * Correction Factor: 30 mg/dL/unit * Nutritional / Prandial insulin per carb ratio of 1 unit per 12 grams CHO consumed PLAN FOR DISCHARGE: * 8.2% - reasonable to continue home DM regimen as long as no contraindications present
--- NOTE | 2021-04-25 11:45 | Hospitalist Progress Note ---
Date of Service April 25, 2021 Assessment & Plan (1) Left hip pain: Plan: * Patient sustained a ground-level fall resulting in periprosthetic fracture of the distal femur * Today she is complaining of left hip pain * Plain film of the hip and pelvis showed no acute pathology * will obtain a CT scan to rule out fracture (2) Closed fracture of left distal femur: Plan: * Femur CT revealed acute comminuted and displaced fracture within the distal left femur. There is internal fixation of an old healed proximal left femoral fracture with an intramedullary shelby and interlocking femoral neck pin. * Patient currently in the immobilizer, pain being managed with Tylenol and oxycodone. * For OR tomorrow for ORIF * Will be made n.p.o. after midnight tonight (3) Aortic stenosis: Plan: * s/p TAVR in December 2019. * Followed by [facility] * Most recent echocardiogram done 07/06 showing hyperdynamic EF of 70% without obvious regional wall motion abnormalities. * Would advise against spinal anesthesia given her aortic stenosis (4) Chronic diastolic CHF (congestive heart failure): Plan: * Echo from June 2020 revealed EF 70%, no obvious regional wall abnormalities. * Repeat Echo ordered and pending * Her CHF is clinically compensated at this time * She is not on any diuretic therapy * Would advise against aggressive fluid replacement intraoperatively (5) CAD (coronary artery disease): Plan: * Cardiac cath in March 2019 revealed mild LAD disease. Patient does not complain of chest pain or shortness of breath today. * Continue metoprolol but hold ASA in the setting of need for surgical intervention. Would advise resumption of this 48 hours post op * History of pericardial effusion requiring pericardiocentesis in June 2020. Placed on colchicine daily. Echo in January 05 revealed near complete resolution. Colchicine continued * EKG showing no acute pathology. Incomplete right bundle branch block which is unchanged from prior EKG * Current revised cardiac risk index = 3; however, significant increased risk of never walking again, DVT/PE, skin breakdown and wounds leading to sepsis without surgical intervention (6) Type 2 diabetes mellitus: Plan: * Currently on 14 units of Levemir daily. * Decreased dose in half for tomorrow in preparation of planned surgical procedure * Accu-Cheks ACHS with sliding scale coverage. * Hold Jardiance, Trulicity, Metformin during hospitalization. (7) Mood disorder: Plan: * Continue BuSpar and citalopram. (8) DVT prophylaxis: Plan: * SCDs ordered. * Heparin SQ Q12 on board. continue this. Would advise Xarelto 10mg daily x 14 days given this being a fracture which poses increased risk of DVT/PE Plan: Plan of care to be discussed with Dr. Johnson. Further orders as warranted. Admission and Anticipated Discharge Date Admission Date: April 24, 2021 Subjective Patient seen on daily rounds today. Hospitalized for periprosthetic fracture of the left distal femur. Plan is for surgical intervention tomorrow (ORIF). Is complaining of left hip pain today. Currently, she denies fevers, chills, chest pain, shortness of breath, abdominal pain, nausea or vomiting. She resides in [facility]. Review of Systems Review of Systems: All systems reviewed and are unremarkable except as noted in HPI and below Denies fevers, chills, headache, nasal congestion, sore throat, cough, chest pain, shortness of breath, palpitations, orthopnea, PND, abdominal pain, nausea, vomiting, diarrhea, constipation, dysuria, hematuria, frequency, back pain, joint pain or swelling, easy bruising or bleeding, skin lesions or rashes. Physical Exam Physical Exam: General: Resting comfortably in her hospital bed. NAD. HEENT: Head is AT/NC buccal mucosa is moist and pink Neck: No JVD. Negative hepatojugular reflex Cardiac: RRR with 3/6 holosystolic murmur Lungs: CTA without W/R/R Abdomen: Normoactive X4. Soft and nontender in all quadrants. Extremities: Left lower extremity is externally rotated. Distal pulses are intact and symmetrical bilaterally. Neuro: A&O X4 cranial nerves II through XII are grossly intact no focal neuro deficits Skin: No obvious skin lesions or rashes Psych: Appropriate affect pleasant and cooperative Results & Data Results & Data ([facility]) Vital Signs (Past 12 Hours) Vital Signs Temp Pulse Resp BP Pulse Ox 04/25/21 08:06 36.8 C 90 16 136/80 96 Laboratory Results 04/24/21 13:36 04/24/21 13:36 PG Care Time/CCT Total # of Minutes Spent Total Time Spent with Patient: Total time spent is greater than 50% in coordination of care (as documented) at patient's floor/unit and/or counseling patient: Coding Level of Care Code 21660 Subseq Hosp Care Lvl 2 Diagnoses Closed fracture of left distal femur S72.402A Aortic stenosis I35.0 Cardiac valve disease etiology: etiology unspecified Chronic diastolic CHF (congestive heart failure) I50.32 CAD (coronary artery disease) I25.10 Type 2 diabetes mellitus E11.9 Mood disorder F39 DVT prophylaxis Z29.9 Left hip pain M25.552 (1) Aortic stenosis Cardiac valve disease etiology: etiology unspecified Qualified Code(s): I35.0 - Nonrheumatic aortic (valve) stenosis
--- NOTE | 2021-04-25 13:46 | CT Scan Report ---
LEFT HIP CT CT DOSE: 795.67 mGy.cm HISTORY: Left femoral fracture. Evaluate left hip. Left hip pain. r/o fx TECHNIQUE: Multiaxial CT images of the left hip were performed and reformatted in the sagittal and co ariana plane without the use of contrast. A dose lowering technique was utilized adhering to the prin ciples of JUAQUIN. COMPARISON: Left femur CT 04/24/2021. FINDINGS: There is again noted prior internal fixation of an old, healed fracture the proximal left f emur. There is a left femoral intramedullary shelby within interlocking femoral neck pin. The hardware a ppears intact. The patient's known distal left femoral fracture is not included on this study. Bony o vergrowth within the medial aspect of the proximal femur consistent with old posttraumatic changes. N o acute fracture or dislocation within the proximal left femur. The visualized pelvic bones are intac t. 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 Soft tissues within the left hip are within normal limits. Partially visualized calcified uterine fibroid in a few colonic diverticula ar e noted. Distended fluid-filled loops of small bowel are partially visualized. This could represent a mild ileus. IMPRESSION: 1. No acute fracture or dislocation within the left hip. 2. Old posttraumatic and postoperative changes as described above. ACT 112: Negative or not required by law. Electronically signed by: Donavan Martinez M.D. 04/25/2021 1:45 PM
--- NOTE | 2021-04-25 16:58 | XCELERA ---
[id number] \\[id number]
--- NOTE | 2021-04-25 17:16 | Orthopedic Progress Note ---
Date of Service April 25, 2021 Assessment & Plan (1) Closed fracture of distal end of left femur: Plan: Plan for ORIF Left Distal Femur fx tomorrow afternoon. NPO after midnight. Hold Heparin in AM. Admission and Anticipated Discharge Date Admission Date: April 24, 2021 Subjective Resting comfortably. No complaints. Discussed plans for surgery with patient. Pain controlled. Physical Exam Physical Exam: Immobilizer on the left knee. Kept in place. NV intact. Toes mobile. Good DF /PF. Results & Data ([facility]) Vital Signs (Past 12 Hours) Vital Signs Temp Pulse Resp BP BP Pulse Ox 04/25/21 15:12 37.2 C 93 H 16 110/68 94 04/25/21 08:06 36.8 C 90 16 136/80 96 (1) Closed fracture of distal end of left femur Encounter type: initial encounter Fracture morphology: unspecified fracture morphology Qualified Code(s): S72.402A - Unspecified fracture of lower end of left femur, initial encounter for closed fracture
[2021-04-25] MEDS: CITALOPRAM 20 MG TAB PO SCH (20:32)
[2021-04-25] MEDS ORDERED: INSULIN ASPART PER UNIT SC SCH (21:45)
[2021-04-25] MEDS ORDERED: Nursing to Pharmacy Communication SCH (22:00)
--- NOTE | 2021-04-25 22:53 | Electrocardiogram Report ---
Test Reason : Blood Pressure : / mmHG Vent. Rate : 090 BPM Atrial Rate : 090 BPM P-R Int : 134 ms QRS Dur : 122 ms QT Int : 390 ms P-R-T Axes : 067 203 042 degrees QTc Int : 477 ms Normal sinus rhythm Right superior axis deviation Right bundle branch block Possible Inferior infarct Cannot rule out Anterior infarct , age undetermined Abnormal ECG When compared with ECG of 14-OCT-2019 12:05, Premature atrial complexes are no longer Present Confirmed by Luis Angel Laura ([id number]) on 04/25/2021 10:53:48 PM Referred By: [facility] Confirmed By:Luis Angel Laura
[2021-04-26] MEDS: oxyCODONE HCL IR 5 MG TAB (IMMEDIATE RELEASE) PO SCH ×6 (01:51→22:12)
[2021-04-26] MEDS: ACETAMINOPHEN 325 MG TAB PO PRN (04:17)
[2021-04-26] MEDS: INSULIN ASPART PER UNIT SC SCH ×3 (06:40→22:00)
[2021-04-26] MEDS: HEPARIN SOD 5,000 UNIT/0.5 ML VIAL SQ SCH ×2 (07:10→22:12)
[2021-04-26] MEDS: CHOLECALCIFEROL 1,000 UNITS 25 MCG TAB PO SCH (07:10)
[2021-04-26] MEDS: POLYETHYLENE (MIRALAX) 17 GM PACK PO SCH (07:11)
[2021-04-26] MEDS: DOCUSATE SODIUM/SENNA 50/8.6MG TAB PO SCH (07:11)
--- NOTE | 2021-04-26 07:11 | Anesthesiology Consultation ---
Date of Service April 26, 2021 Assessment & Plan (1) Encounter for pre-operative examination: Chart Review Chart Review: Acceptable Risk for Surgery and Patient NOT seen in Pre Admission Testing Consults Requested none History Surgery Operation Date: 04/26/21 07:00 Proposed Procedures p Left Open Reduction Internal Fixation Distal Periprosthetic Femur Fracture - Matias Abernathy DO Height/Weight Height: 5 ft 3 in Weight: 66.7 kg Allergies Allergy/AdvReac Type Severity Reaction Status Date / Time naproxen [From Naprosyn] AdvReac Rash Verified 04/24/21 15:40 NSAIDS (Non-Steroidal AdvReac Rash Verified 04/24/21 15:40 Anti-Inflamma Medications Home Medications Medication Instructions Recorded Confirmed Last Taken vitamins A,C,R-nlnd-yixmem 7,160 1 tab PO BIDM 02/11/18 04/24/21 04/24/21 08:30 unit-113 mg-100 unit tablet (PreserVision AREDS) metoprolol succinate 25 mg 12.5 mg PO QAM 02/09/19 04/24/21 04/24/21 tablet,extended release 24 hr empagliflozin 25 mg tablet 25 mg PO QAM 03/23/19 04/24/21 04/24/21 (Jardiance) dulaglutide 0.75 mg/0.5 mL 0.75 mg SUBCUT WK 04/25/20 04/24/21 04/24/21 subcutaneous pen injector (Trulicity) insulin detemir U-100 100 unit/mL 14 unit SUBCUT DAILY 04/25/20 04/24/21 04/24/21 subcutaneous solution (Levemir U-100 Insulin) colchicine 0.6 mg tablet (Colcrys) 0.6 mg PO QAM #30 tab 06/25/20 04/24/21 04/24/21 acetaminophen 325 mg tablet 650 mg PO Q6H PRN MDD 3 GRAMS/24 04/24/21 04/24/21 04/22/21 (Tylenol) HOURS aspirin 81 mg tablet,delayed 81 mg PO QAM 04/24/21 04/24/21 04/24/21 release buspirone 10 mg tablet 10 mg PO TIDM 04/24/21 04/24/21 04/23/21 12:30 carboxymethylcellulose sodium 0.5 2 drp OPHTHALMIC (EYE) TID 04/24/21 04/24/21 04/24/21 08:30 % eye drops in a dropperette (Refresh Plus) cholecalciferol (vitamin D3) 50 50 mcg PO QAM 04/24/21 04/24/21 04/24/21 mcg (2,000 unit) capsule (Vitamin D3) citalopram 10 mg tablet (Celexa) 10 mg PO HS 04/24/21 04/24/21 04/23/21 diclofenac sodium 1 % topical gel 2 g TOPICAL QID 04/24/21 04/24/21 04/24/21 12:30 insulin aspart U-100 100 unit/mL 0 unit SUBCUT QPM 04/24/21 04/24/21 04/23/21 subcutaneous solution (Novolog BSG-379 U-100 Insulin aspart) insulin aspart U-100 100 unit/mL 1 sliding scale dose SUBCUT ACHS 04/24/2110/0604/24/21 11:30 subcutaneous solution (Novolog 12 UNITS U-100 Insulin aspart) metformin 500 mg tablet,extended 1,000 mg PO BID 04/24/21 04/24/21 04/24/21 08:30 release 24hr multivit with 1 tab PO QAM 04/24/21 04/24/21 04/24/21 cdndfjfd-vsav-CO-lutein 8 mg iron-400 mcg-300 mcg tablet (Centrum Silver Women) oxycodone 5 mg tablet 5 mg PO Q6H PRN 04/24/21 04/24/21 04/23/21 15:32 Active Medications Generic Name Dose Route Start Last Admin Trade Name Zay PRN Reason Stop Dose Admin Acetaminophen 650 mg 04/24/21 19:26 04/26/21 04:17 Acetaminophen 325 Mg Tab PO 05/24/21 19:25 650 mg Q6H PRN Administration Pain or Fever Buspirone HCl 10 mg 04/24/21 20:42 04/25/21 17:21 Buspirone 5 Mg Tab PO 05/24/21 20:41 10 mg TIDM SINDY Administration Citalopram Hydrobromide 10 mg 04/24/21 21:00 04/25/21 20:32 Citalopram 20 Mg Tab PO 05/24/21 20:59 10 mg HS SINDY Administration Colchicine 0.6 mg 04/25/21 09:00 04/25/21 08:58 Colchicine 0.6 Mg Tab PO 05/25/21 08:59 0.6 mg QAM SINDY Administration Heparin Sodium (Porcine) 5,000 units 04/24/21 21:00 04/26/21 07:10 Heparin Sod 5,000 Unit/0.5 Ml Vial SQ 05/24/21 20:59 Not Given Q12 SINDY Insulin Aspart 0 units 04/26/21 06:00 04/26/21 06:40 Insulin Aspart Per Unit SC 05/26/21 05:59 Not Given Q6 SINDY Metoprolol Succinate 12.5 mg 04/25/21 09:00 04/25/21 08:58 Metoprolol Succ 25mg Ext Rel Tab PO 05/25/21 08:59 12.5 mg QAM SINDY Administration Oxycodone HCl 2.5 mg 04/24/21 17:00 04/26/21 04:09 Oxycodone Hcl Ir 5 Mg Tab (Immediate Release) PO 05/08/21 16:59 2.5 mg Q4H SINDY Administration Polyethylene Glycol 17 gm 04/25/21 09:00 04/25/21 09:08 Polyethylene (Miralax) 17 Gm Pack PO 05/25/21 08:59 17 gm DAILY SINDY Administration Senna/Docusate Sodium 1 tab 04/25/21 09:00 04/25/21 09:08 Docusate Sodium/Senna 50/8.6mg Tab PO 05/25/21 08:59 1 tab QAM SINDY Administration Vitamin D 2,000 units 04/25/21 09:00 04/25/21 08:59 Cholecalciferol 1,000 Units 25 Mcg Tab PO 05/25/21 08:59 2,000 units QAM SINDY Administration NPO Date Last Intake of Fluids: 04/26/21 Time Last Intake of Fluids: 00:00 Date Last Intake of Solids: 04/25/21 Time Last Intake of Solids: 21:00 Past Medical History Medical History Aortic stenosis S/p TAVR 12/2019 Arthritis Bifascicular bundle branch block follows Dr. Guzman Chronic diastolic CHF (congestive heart failure) Diabetes Glucose fluctuates GERD (gastroesophageal reflux disease) Well controlled and stable Hearing deficit Very [place]- no hearing aids Hypertension Pericardial effusion Small circumferential pericardial effusion without evidence of tamponade noted on 01/2019 ECHO Poor historian pt unable to hear so her sister gave hx, sister poor historian Past Family History Family History Other Family history non-contributory Past Surgical History Surgical History History of aortic valve replacement TAVR 12/2019 at [facility]- follows with Dr. Guzman History of cardiac cath Mar 2019- no stents History of colonoscopy History of esophagogastroduodenoscopy (EGD) History of hip surgery bilat hips > rods due to breaks History of tooth extraction Hx of thumb surgery Right/ Left Status post cholecystectomy Status post shoulder surgery bilateral Social History Smoking Status: Never smoker Hx Alcohol Use: No Hx Substance Use: No substance use type: does not use Physical Exam Vital Signs Last Vital Signs Temp 97.9 F 04/25/21 23:47 Pulse 91 H 04/25/21 23:47 Resp 20 04/25/21 23:47 BP 157/73 H 04/25/21 23:47 Pulse Ox 94 04/25/21 23:47 Testing Laboratory Results 04/24/21 13:36 04/24/21 13:36 PT 10.4 Seconds (9.0-12.0) 04/24/21 13:36 INR 1.0 (0.9-1.1) 04/24/21 13:36 APTT 27.4 Seconds (21.0-31.0) 04/24/21 13:36 Urine Color Yellow 04/24/21 22:00 Urine Appearance Clear (Clear) 04/24/21 22:00 Urine pH 7.5 (4.5-7.5) 04/24/21 22:00 Ur Specific [place] 1.026 (1.000-1.030) 04/24/21 22:00 Urine Protein Negative (Negative) 04/24/21 22:00 Urine Glucose (UA) 3+ (Negative) H 04/24/21 22:00 Urine Ketones Negative (Negative) 04/24/21 22:00 Urine Nitrite Negative (Negative) 04/24/21 22:00 Ur Leukocyte Esterase Negative (Negative) 04/24/21 22:00 Blood Type O Positive 04/25/21 14:41 Antibody Screen NEGATIVE 04/25/21 14:41 04/26/21 04/25/21 05:53 20:34 POC Glucose 112 H 196 H Electrocardiogram Date: 04/24/21 Findings: + NSR @ and + RBBB Echocardiogram Date: 04/25/21 EF: 70 LV Function: normal (hyperdynamic) Severe left atrial dilation, bioprosthetic aortic valve.
[2021-04-26] MEDS: busPIRone 5 MG TAB PO SCH ×3 (07:25→22:01)
[2021-04-26] MEDS: COLCHICINE 0.6 MG TAB PO SCH (07:25)
[2021-04-26] MEDS: METOPROLOL SUCC 25MG EXT REL TAB PO SCH (07:25)
[2021-04-26 07:52] LABS: Basophils # (auto) 0.04 K/uL (0-0.2); Basophils % (auto) 0.4 %; Eosinophils # (auto) 0.46 K/uL (0-0.5); Eosinophils % (auto) 5.2 %; Hematocrit (blood only) 37.2 % (37-47); Hemoglobin 12.1 g/dL (12.0-16.0); Immature Granulocytes # (auto) 0.03 K/uL (0.00-0.02); Immature Granulocytes % (auto) 0.3 %; Lymphocytes # (auto) 1.51 K/uL (1.2-3.4); Mean Corpuscular Hemoglobin 29.8 pg (25-34); Mean Corpuscular Hgb Conc 32.5 g/dL (32-36); Mean Corpuscular Volume 91.6 fL (80-100); Mean Platelet Volume 8.6 fL (7.4-10.4); Monocytes # (auto) 0.79 K/uL (0.11-0.59); Monocytes % (auto) 8.9 %; Neutrophils # (auto) 6.07 K/uL (1.4-6.5); Neutrophils % (auto) 68.2 %; Platelet Count 368 K/uL (130-400); RDW Coefficient of Variation 14.1 % (11.5-14.5); RDW Standard Deviation 47.3 fL (36.4-46.3); Red Blood Count 4.06 M/uL (4.2-5.4)
--- NOTE | 2021-04-26 08:00 | Hospitalist Progress Note ---
Date of Service April 26, 2021 Assessment & Plan (1) Left hip pain: Plan: * Patient sustained a ground-level fall resulting in periprosthetic fracture of the LEFT distal femur * 04/25 complaining of L hip pain. Xray without acute pathology and CT obtained to r/o occult fracture --> negative NPO currently for ORIF with Dr Abernathy ASA on hold, heparin on hold Plans for possible xarelto 10mg x 14 days given risk for DVT/PE Pain control/antiemetics prn PT/OT following surgery (from [facility]) Labs in AM (2) Closed fracture of left distal femur: Plan: * Femur CT revealed acute comminuted and displaced fracture within the distal left femur. There is internal fixation of an old healed proximal left femoral fracture with an intramedullary shelby and interlocking femoral neck pin. * Patient currently in the immobilizer, pain being managed with Tylenol and oxycodone. * For OR for ORIF today, NPO, diet following PT/OT following Consider Xarelto 10mg x 14 days given risk for DVT/PE Heparin held for this morning (3) Aortic stenosis: Plan: * s/p TAVR in December 2019. * Followed by [facility] * Most recent echocardiogram done 07/06 showing hyperdynamic EF of 70% without obvious regional wall motion abnormalities. * --> repeat ECHO with bioprosthetic valve with acceptable transvalvular gradient/velocity * --> Of note, pericardial effusion has resolved compared to study 06/25/20 (needed pericardiocentesis 2020 1000cc bloody fluid) * Would advise against spinal anesthesia given her aortic stenosis (4) Chronic diastolic CHF (congestive heart failure): Plan: * Echo from June 2020 revealed EF 70%, no obvious regional wall abnormalities. * Repeat Echo ordered and pending * Her CHF is clinically compensated at this time * She is not on any diuretic therapy * Would advise against aggressive fluid replacement intraoperatively (5) CAD (coronary artery disease): Plan: * also has history of bioprosthetic aortic valve (s/p TAVR december 2019) * Cardiac cath in March 2019 revealed mild LAD disease. * Patient does not complain of chest pain or shortness of breath today. * Continue metoprolol but hold ASA in the setting of need for surgical intervention. Would advise resumption of this 48 hours post op * History of pericardial effusion requiring pericardiocentesis in June 2020. Placed on colchicine daily. Echo in January 05 revealed near complete resolution. Colchicine continued * EKG showing no acute pathology. Incomplete right bundle branch block which is unchanged from prior EKG * Current revised cardiac risk index = 3; however, significant increased risk of never walking again, DVT/PE, skin breakdown and wounds leading to sepsis without surgical intervention (6) Type 2 diabetes mellitus: Plan: * Currently on 14 units of Levemir daily. * Decreased dose to 8 u for this morning as NPO, resume usual dose in AM if keeping up with PO intake * Accu-Cheks ACHS with sliding scale coverage. * Hold Jardiance, Trulicity, Metformin during hospitalization. * BSGs acceptable * --> continue to monitor (7) Mood disorder: Plan: * Continue BuSpar and citalopram. (8) DVT prophylaxis: Plan: * SCDs ordered. * Heparin SQ Q12 on board. continue this (held for this AM per ortho) * Would advise Xarelto 10mg daily x 14 days given this being a fracture which poses increased risk of DVT/PE Plan: NPO for ORIF today Admission and Anticipated Discharge Date Admission Date: April 24, 2021 Subjective evaluated this morning anxiously awaiting surgery pain controlled with ordered medications no fever, chills, chest pain, shortness of breath, abd pain, n/v at this time. Moved bowels yesterday, nothing today. alert, oriented to person, stated year 2021 and that she had a fall/trip over object in her room at [facility]. Review of Systems Review of Systems: All systems reviewed & are unremarkable except as noted in HPI & below Physical Exam Physical Exam: General: WN/WD elderly female resting in hospital bed, NAD HEENT: atraumatic, normocephalic, mmm, no JVD, trachea midline without deviation, HARD OF HEARING Resp: CTAB, no w/c/r, on room air CV: RRR, 3/6 harsh systolic murmur to carotids, LLE edema in immobilizer, no RLE edema, pulses palpable, cap refill <3 seconds GI: +BS throughout, soft, nontender Ext: LLE externally rotated, immobilizer and ice pack in place, pulses palpable, NVI Psych: alert, oriented to person, place/time 2021 Neuro: no focal deficit Results & Data Results & Data ([facility]) Vital Signs (Past 12 Hours) Vital Signs Temp Pulse Resp BP BP Pulse Ox 04/26/21 07:00 36.9 C 86 18 133/69 91 04/25/21 23:47 36.6 C 91 H 20 157/73 H 94 Laboratory Results 04/26/21 04/26/21 04/26/21 Range/Units 11:57 07:31 07:31 WBC (4.8-10.8) K/uL RBC (4.2-5.4) M/uL Hgb (12.0-16.0) g/dL Hct (37-47) % MCV (80-100) fL MCH (25-34) pg MCHC (32-36) g/dL RDW Std Deviation (36.4-46.3) fL RDW Coeff of Sharri (11.5-14.5) % Plt Count (130-400) K/uL MPV (7.4-10.4) fL Immature Gran % (Auto) % Neut % (Auto) % Lymph % (Auto) % [place] % (Auto) % Eos % (Auto) % Baso % (Auto) % Neut # (Auto) (1.4-6.5) K/uL Lymph # (Auto) (1.2-3.4) K/uL [place] # (Auto) (0.11-0.59) K/uL Eos # (Auto) (0-0.5) K/uL Baso # (Auto) (0-0.2) K/uL Immature Gran # (Auto) (0.00-0.02) K/uL Sodium 136 (136-145) mmol/L Potassium 4.5 (3.5-5.1) mmol/L Chloride 99 (98-107) mmol/L Carbon Dioxide 32 (21-32) mmol/L Anion Gap 5 (3-11) BUN 11 (6-23) mg/dl Creatinine 0.38 L (0.6-1.2) mg/dl Est Cr Clr Drug Dosing 99.3 ml/min Est GFR ( Amer) 112.0 ml/min Est GFR (Non-Af Amer) 96.6 ml/min BUN/Creatinine Ratio 28.9 H (10-20) Glucose 104 H (70-99(Fasting)) mg/dl POC Glucose 90 (70-99) mg/dl Estimat Average Glucose 171 mg/dl Hemoglobin A1c 7.6 H (4.5-5.6) % Calcium 8.3 L (8.5-10.1) mg/dl Magnesium 1.8 (1.7-2.4) mg/dl Blood Type Antibody Screen 04/26/21 04/26/21 04/25/21 Range/Units 07:31 05:53 20:34 WBC 8.90 (4.8-10.8) K/uL RBC 4.06 L (4.2-5.4) M/uL Hgb 12.1 (12.0-16.0) g/dL Hct 37.2 (37-47) % MCV 91.6 (80-100) fL MCH 29.8 (25-34) pg MCHC 32.5 (32-36) g/dL RDW Std Deviation 47.3 H (36.4-46.3) fL RDW Coeff of Sharri 14.1 (11.5-14.5) % Plt Count 368 (130-400) K/uL MPV 8.6 (7.4-10.4) fL Immature Gran % (Auto) 0.3 % Neut % (Auto) 68.2 % Lymph % (Auto) 17.0 % [place] % (Auto) 8.9 % Eos % (Auto) 5.2 % Baso % (Auto) 0.4 % Neut # (Auto) 6.07 (1.4-6.5) K/uL Lymph # (Auto) 1.51 (1.2-3.4) K/uL [place] # (Auto) 0.79 H (0.11-0.59) K/uL Eos # (Auto) 0.46 (0-0.5) K/uL Baso # (Auto) 0.04 (0-0.2) K/uL Immature Gran # (Auto) 0.03 H (0.00-0.02) K/uL Sodium (136-145) mmol/L Potassium (3.5-5.1) mmol/L Chloride (98-107) mmol/L Carbon Dioxide (21-32) mmol/L Anion Gap (3-11) BUN (6-23) mg/dl Creatinine (0.6-1.2) mg/dl Est Cr Clr Drug Dosing ml/min Est GFR ( Amer) ml/min Est GFR (Non-Af Amer) ml/min BUN/Creatinine Ratio (10-20) Glucose (70-99(Fasting)) mg/dl POC Glucose 112 H 196 H (70-99) mg/dl Estimat Average Glucose mg/dl Hemoglobin A1c (4.5-5.6) % Calcium (8.5-10.1) mg/dl Magnesium (1.7-2.4) mg/dl Blood Type Antibody Screen 04/25/21 04/25/21 Range/Units 17:01 14:41 WBC (4.8-10.8) K/uL RBC (4.2-5.4) M/uL Hgb (12.0-16.0) g/dL Hct (37-47) % MCV (80-100) fL MCH (25-34) pg MCHC (32-36) g/dL RDW Std Deviation (36.4-46.3) fL RDW Coeff of Sharri (11.5-14.5) % Plt Count (130-400) K/uL MPV (7.4-10.4) fL Immature Gran % (Auto) % Neut % (Auto) % Lymph % (Auto) % [place] % (Auto) % Eos % (Auto) % Baso % (Auto) % Neut # (Auto) (1.4-6.5) K/uL Lymph # (Auto) (1.2-3.4) K/uL [place] # (Auto) (0.11-0.59) K/uL Eos # (Auto) (0-0.5) K/uL Baso # (Auto) (0-0.2) K/uL Immature Gran # (Auto) (0.00-0.02) K/uL Sodium (136-145) mmol/L Potassium (3.5-5.1) mmol/L Chloride (98-107) mmol/L Carbon Dioxide (21-32) mmol/L Anion Gap (3-11) BUN (6-23) mg/dl Creatinine (0.6-1.2) mg/dl Est Cr Clr Drug Dosing ml/min Est GFR ( Amer) ml/min Est GFR (Non-Af Amer) ml/min BUN/Creatinine Ratio (10-20) Glucose (70-99(Fasting)) mg/dl POC Glucose 151 H (70-99) mg/dl Estimat Average Glucose mg/dl Hemoglobin A1c (4.5-5.6) % Calcium (8.5-10.1) mg/dl Magnesium (1.7-2.4) mg/dl Blood Type O Positive Antibody Screen NEGATIVE Diagnostic Findings Hip CT 04/25/21 11:[address] DOSE: 795.67 mGy.cm HISTORY: Left femoral fracture. Evaluate left hip. Left hip pain. r/o fx TECHNIQUE: Multiaxial CT images of the left hip were performed and reformatted in the sagittal and coronal plane without the use of contrast. A dose lowering technique was utilized adhering to the principles of ALARA. COMPARISON: Left femur CT 04/24/2021. FINDINGS: There is again noted prior internal fixation of an old, healed fracture the proximal left femur. There is a left femoral intramedullary shelby within interlocking femoral neck pin. The hardware appears intact. The patient's known distal left femoral fracture is not included on this study. Bony overgrowth within the medial aspect of the proximal femur consistent with old posttraumatic changes. No acute fracture or dislocation within the proximal left femur. The visualized pelvic bones are intact. 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 Soft tissues within the left hip are within normal limits. Partially visualized calcified uterine fibroid in a few colonic diverticula are noted. Distended fluid-filled loops of small bowel are partially visualized. This could represent a mild ileus. IMPRESSION: 1. No acute fracture or dislocation within the left hip. 2. Old posttraumatic and postoperative changes as described above. ACT 112: Negative or not required by law. Electronically signed by: Donavan Martinez M.D. 04/25/2021 1:45 PM PG Care Time/CCT Total # of Minutes Spent Total Time Spent with Patient: Total time spent is greater than 50% in coordination of care (as documented) at patient's floor/unit and/or counseling patient: Coding Level of Care Code 97143 Subseq Hosp Care Lvl 2 Diagnoses Left hip pain M25.552 Closed fracture of left distal femur S72.402A Aortic stenosis I35.0 Cardiac valve disease etiology: etiology unspecified Chronic diastolic CHF (congestive heart failure) I50.32 CAD (coronary artery disease) I25.10 Type 2 diabetes mellitus E11.9 Mood disorder F39 DVT prophylaxis Z29.9 (1) Aortic stenosis Cardiac valve disease etiology: etiology unspecified Qualified Code(s): I35.0 - Nonrheumatic aortic (valve) stenosis
[2021-04-26 08:19] LABS: BUN Creatinine Ratio 28.9 (10-20); Calcium 8.3 mg/dl (8.5-10.1); Creatinine Clr Calc Pharmacy 99.3 ml/min; Est GFR (Non-African American) 96.6 ml/min; Magnesium 1.8 mg/dl (1.7-2.4); Potassium 4.5 mmol/L (3.5-5.1)
[2021-04-26] MEDS ORDERED: INSULIN DETEMIR FLEXPEN/FLEX TOUCH 100 UNITS/ML 3ML SC SCH (09:00)
[2021-04-26 09:40] LABS: Estimated Average Glucose 171 mg/dl; Hemoglobin A1C 7.6 % (4.5-5.6)
--- NOTE | 2021-04-26 13:31 | Pharmacy Report ---
Pharmacy Glycemic Short Note 2 - Date of Service April 26, 2021 - Glycemic Short BSG Results (Last 24 hours): 04/25/21 04/25/21 04/26/21 17:01 20:34 05:53 Glucose POC Glucose 151 H 196 H 112 H 04/26/21 04/26/21 07:31 11:57 Glucose 104 H POC Glucose 90 OUTPATIENT ANTIDIABETIC REGIMEN: * Levemir 14 units daily * Novolog SSI * Jardiance 25mg PO daily * Trulicity 0.75mg SQ qMonday * Metformin 1000mg PO BID * HbA1c: 7.6% (04/26/21) ASSESSMENT: 04/26/21: * Ms Harrington will be going to the OR today for ORIF L femur. She is NPO until then. * Levemir dose reduced this morning while pt is NPO. Will likely increase tomorrow if pt tolerating diet post-op. 04/25 * 86 year old admitted with femur fracture. Pharmacy consulted for glycemic management * Fasting BSG this AM 81 mg/dL - per notes, patient received home Levemir dose yesterday. Fasting BSG below goal range for patient, therefore will plan to reduce dose by ~25% * Will trial stress of 2 dosing for novolog for now. Notes suggest possible surgery tomorrow 04/26 PLAN FOR INPATIENT GLYCEMIC CONTROL: * Hold outpatient oral diabetes medications * Basal insulin * Lantus 8 units SQ daily * Bolus insulin * NovoLog per scale ACHS or Q6hrs while NPO * Goal Range: Low 120 mg/dL - High 160 mg/dL * Correction Factor: 30 mg/dL/unit * Nutritional / Prandial insulin per carb ratio of 1 unit per 12 grams CHO consumed PLAN FOR DISCHARGE: * A1c: 7.6% * This A1c indicates excellent glycemic control and may in fact be too aggressive. Goal A1c for this 86yo patient likely around ~8-8.5%. * I suspect that her outpt regimen could be simplified some? She is currently using 5 anti-diabetic agents, which may be unnecessary? * Recommend f/u with outpt provider after d/c to modify regimen.
[2021-04-26] MEDS ORDERED: DEXAMETHASONE SOD INJ 4 MG/ML VIAL ONE (14:49)
[2021-04-26] MEDS ORDERED: fentaNYL citrate 100 MCG/2 ML VIAL ONE ×2 (14:49→20:19)
[2021-04-26] MEDS ORDERED: LIDOCAINE 2% 2 ML VIAL/AMP(20MG/ML) INFIL ONE (14:49)
[2021-04-26] MEDS ORDERED: ONDANSETRON INJ 2 MG/ML 2 ML VIAL ONE (14:49)
[2021-04-26] MEDS ORDERED: PROPOFOL IV EMULSION 10 MG/ML 20 ML VIAL IV ONE ×2 (14:49→18:35)
[2021-04-26] MEDS ORDERED: HYDROmorphone INJ 1 MG/ML SYRINGE IV PRN (15:07)
[2021-04-26] MEDS ORDERED: ATROPINE SULFATE 0.1 MG/ML 10ML SYR IV PRN (15:07)
[2021-04-26] MEDS ORDERED: ONDANSETRON INJ 2 MG/ML 2 ML VIAL IV PRN (15:07)
[2021-04-26] MEDS ORDERED: ceFAZolin 330 MG/ML 1 GM VIAL ONE (15:35)
[2021-04-26] MEDS ORDERED: ceFAZolin 2000MG 2,000 MG/15 ML SYR IV ONE (15:36)
[2021-04-26] MEDS ORDERED: ceFAZolin 2,000 MG/15 ML IV PUSH IV ONE (15:38)
--- NOTE | 2021-04-26 15:40 | History & Physical Bridge Note ---
Date of Service April 26, 2021 History & Physical Bridge Note I have examined the patient, reviewed the History & Physical and in the interval since the performance of the History & Physical I have noted the following changes of clinical significance: no changes noted
[2021-04-26] MEDS ORDERED: MAGNESIUM SULFATE / D5W 1 GM/100 ML BAG IV ONE (16:45)
[2021-04-26] MEDS ORDERED: ROCURONIUM BROMIDE 10 MG/ML 5 ML VIAL IV ONE (17:27)
[2021-04-26] MEDS ORDERED: GLYCOPYRROLATE 0.2 MG/ML VIAL ONE (19:15)
[2021-04-26] MEDS ORDERED: NEOSTIGMINE METHYLSULFATE 1 MG/ML 10ML VIAL ONE (19:15)
[2021-04-26] MEDS ORDERED: PHENYLEPHRINE HCL 10 MG/ML VIAL ONE (19:15)
--- NOTE | 2021-04-26 20:36 | Post Operative Brief Note ---
Immediate Post Op Note v1 Date of Surgery April 26, 2021 Pre & Post Diagnosis Operation Date: 04/26/21 07:00 Pre-Op Diagnosis: Left comminuted displaced closed periprosthetic fracture of the distal femur Post-Op Diagnosis: Left comminuted displaced closed periprosthetic fracture of the distal femur I identified the patient and participated in the time-out.: Yes Procedure Operation Date: 04/26/21 07:00 Actual Procedures p Left Open Reduction Internal Fixation comminuted displaced distal Periprost hetic Femur Fracture with a Leonard NCB periprosthetic locking plate and screws Matias Abernathy DO Surgeon Matias Abernathy DO [employer] Stephon Moore PA-C Estimated Blood Loss 400 Findings Consistent with Post-Op Diagnosis Anesthesia Type General Complications none Disposition Accompanied Patient To Recovery: No
--- NOTE | 2021-04-26 20:56 | Fluoroscopy Report ---
FL femur LT 2V CLINICAL HISTORY: LT ORIF PERIPROSTHETIC FEMUR FX COMPARISON STUDY: Left femur CT 04/24/2021 FLUOROSCOPY TIME: 1 minute and 26 seconds. FINDINGS: 6 fluoroscopic spot images of the left femur. Status post internal fixation of a distal lef t femoral periprosthetic fracture with a lateral cortical plate transfixed with screws. There is impr leanna anatomic alignment. Hardware appears intact. The intramedullary shelby is in place. There is normal , healed proximal left femoral fracture again noted. IMPRESSION: Fluoroscopic assistance provided for internal fixation of a distal left femoral periprost hetic fracture. ACT 112: Negative or not required by law. Electronically signed by: Donavan Martinez M.D. 04/26/2021 8:55 PM
--- NOTE | 2021-04-26 21:21 | Operative Report (OR) ---
DATE OF PROCEDURE: 04/26/2021. PREOPERATIVE DIAGNOSIS: Left comminuted, displaced periprosthetic distal femur fracture. POSTOPERATIVE DIAGNOSIS: Left comminuted, displaced periprosthetic distal femur fracture. PROCEDURES PERFORMED: Open reduction and internal fixation of left comminuted, displaced periprosthe tic distal femur fracture with a Leonard NCB periarticular locking plate and screws. SURGEON: Matias Abernathy DO. COREMAKER SUPERVISOR: Stephon Moore PA-C who was present for patient positioning, sterile prep and drape, management of retractors and instruments. He was present through the critical portions of the case i ncluding wound closure, application of sterile dressing and transport of the patient to recovery. ANESTHESIA: General. SPECIMENS: None. DRAINS: None. COMPLICATIONS: None. BLOOD LOSS: 400 mL. PERTINENT HISTORY: This is an 86-year-old female who sustained a mechanical twist and fall on her le ft lower leg. She felt pain and inability to ambulate. Not certain when this occurred. She then pr esented to [facility] via EMS. She was evaluated. Radiographs were obtained, note d to have a comminuted displaced periprosthetic distal femur fracture. She was admitted to the [facility]. She was medically optimized and then she was scheduled for surgery as indicated. All potential risks, benefits, complications, alternatives, rehab potential for incomplete relief of symptoms, need for further surgery, DVT, PE, , persistent pain, swelling, scarring, weakness, ne urovascular injury, wound complications, hardware failure, nonunion, malunion, bone fracture were dis cussed with the patient. The patient decided to proceed with the procedure as indicated. DESCRIPTION OF PROCEDURE: The patient was taken to the operative suite and placed supine on the oper ating table. After review of consent and identification of proper operative site, the patient was an esthetized, LMA was placed. Left lower extremity was then sterilely prepped and draped in usual [facility] ion, elevated and placed on a bump laterally and then a sterile bump was then used during the case. Next, the surgical timeout was performed. Then, a 10 blade scalpel was used to make an incision just inferior to the mid lateral line beginning at the distal aspect of the femur and extending proximally to roughly the midshaft of the femur. Ca re was taken to incorporate the previous incision sites into the incision to avoid soft tissue compli cations. Then, the 10 blade scalpel incision was then deepened through the skin and subcutaneous tis melanie. Meticulous hemostasis was achieved with electrocautery. Full thickness skin flaps were develop ed with assistance of skin rakes and the iliotibial band was identified. This was then incised along the skin incision with a 10 blade scalpel and then the vastus lateralis was identified and then a mcknight bvastus split was made with careful blunt dissection. A tissue plane was then developed to minimize the amount of damage to the intramuscular vessels and nerves of the vastus lateralis, which was then elevated with a pair of large Alfonso retractors. The fracture was clearly identified. Fracture comminution was evident and the site was then copiousl y irrigated with pulsatile lavage with sterile saline and Ancef, and the fracture fragments were then carefully debrided and clot was removed from between the fragments to achieve near anatomic reductio n with large bone clamps, and 2.0 mm guide pins used to stabilize the fractures for provisional fixat ion under live fluoroscopic assistance. Once satisfactory reduction and alignment had been achieved with provisional fixation, next a large Leonard NCB locking periarticular plate was then aligned under live fluoroscopic assistance and pinned distally and pinned proximally, and fluoroscopy was used to assure proper alignment of the plate and the bone. Next, multiple locking and nonlocking screws were utilized to stabilize the fracture and stabilize th e plate to the bone. Care was taken to avoid the intramedullary nail when possible for 2 cortices of fixation with a third point of fixation in the locking plate and when this was impossible to perform , single cortex locking screws were used to stabilize the fracture into stable alignment and fixation . Next, the guide pins and clamps were removed. Final radiographs were obtained. Site was copiousl y irrigated with pulse lavage with Ancef and saline until clear. Next, the deep soft tissue and vastus fascia was then closed using interrupted #1 Vicryl. The ilioti bial band was then closed using a combination of running and non-running #1 Vicryl sutures. Next, th e next layer was then copiously irrigated with sterile saline with Ancef and saline followed by closu re of the dermis with a running barbed suture. Skin was closed using skin gurmeet. Next, sterile co mpressive dressing was applied. The patient was awakened and taken to recovery in stable condition. Job ID: [id number]
--- NOTE | 2021-04-26 21:51 | Anesthesiology Progress Note ---
Date of Service April 26, 2021 Anesthesia Post Procedure Vital Signs Vital Signs: Temp Pulse Pulse Resp BP BP Pulse Ox 04/26/21 21:40 37.2 C 103 H 26 H 119/61 94 04/26/21 21:32 105 H 20 104/56 L 97 04/26/21 21:20 103 H 17 139/100 90 04/26/21 21:10 100 H 18 142/64 H 100 04/26/21 21:01 101 H 20 146/63 H 99 04/26/21 20:49 36.9 C 102 H 23 114/75 99 04/26/21 14:53 37 C 90 24 149/84 H 95 04/26/21 07:00 36.9 C 86 18 133/69 91 04/25/21 23:47 36.6 C 91 H 20 157/73 H 94 Pain Intensity Left Leg: Pain Intensity: 1 Transfer of Care Handoff Completed per policy Notes Mental Status: alert / awake / arousable Patient Amnestic to Procedure: Yes Nausea / Vomiting: adequately controlled Pain: adequately controlled Airway Patency, RR, SpO2: stable & adequate BP & HR: stable & adequate Hydration State: stable & adequate Anesthetic Complications: no major complications apparent and Pt Satisfied with anesthetic care Notes: The patient is awake and comfortable. Postop hgb is 12.3. Postop BSG is 97.
[2021-04-26] MEDS ORDERED: NALOXONE HCL 0.4 MG/1 ML VIAL/CARP IV PRN (21:55)
[2021-04-26] MEDS ORDERED: SODIUM CHLORIDE 0.9% 1000ML 1,000 ML IV SCH (21:55)
[2021-04-26] MEDS ORDERED: bisacodyL 10 MG SUPP PR PRN (21:55)
[2021-04-26] MEDS ORDERED: MAGNESIUM HYDROXIDE SUSP 30 ML UDC PO PRN (21:55)
[2021-04-26] MEDS ORDERED: Nursing to Pharmacy Communication SCH (22:00)
[2021-04-26] MEDS: DOCUSATE SODIUM 100 MG CAP PO SCH (22:35)
[2021-04-26] MEDS: ASPIRIN 81 MG ECTAB PO SCH (22:35)
[2021-04-26] MEDS: CITALOPRAM 20 MG TAB PO SCH (22:36)
[2021-04-26] MEDS: oxyCODONE HCL IR 5 MG TAB (IMMEDIATE RELEASE) PO PRN (23:40)
[2021-04-26] MEDS: ceFAZolin 1000MG 1,000 MG/7.5 ML SYR IV SCH (23:41)
[2021-04-27 06:11] LABS: Basophils # (auto) 0.02 K/uL (0-0.2); Basophils % (auto) 0.2 %; Hematocrit (blood only) 35.2 % (37-47); Hemoglobin 11.2 g/dL (12.0-16.0); Immature Granulocytes # (auto) 0.04 K/uL (0.00-0.02); Immature Granulocytes % (auto) 0.4 %; Lymphocytes # (auto) 0.92 K/uL (1.2-3.4); Lymphocytes % (auto) 8.6 %; Mean Corpuscular Hemoglobin 29.5 pg (25-34); Mean Corpuscular Hgb Conc 31.8 g/dL (32-36); Mean Corpuscular Volume 92.6 fL (80-100); Mean Platelet Volume 8.8 fL (7.4-10.4); Monocytes # (auto) 0.98 K/uL (0.11-0.59); Monocytes % (auto) 9.2 %; Neutrophils # (auto) 8.72 K/uL (1.4-6.5); Neutrophils % (auto) 81.6 %; Platelet Count 439 K/uL (130-400); RDW Coefficient of Variation 14.4 % (11.5-14.5); RDW Standard Deviation 48.6 fL (36.4-46.3); White Blood Count 10.68 K/uL (4.8-10.8)
[2021-04-27 06:33] LABS: BUN Creatinine Ratio 40.6 (10-20); Calcium 7.7 mg/dl (8.5-10.1); Creatinine Clr Calc Pharmacy 117.9 ml/min; Est GFR (African American) 118.5 ml/min; Est GFR (Non-African American) 102.2 ml/min; Magnesium 1.8 mg/dl (1.7-2.4)
[2021-04-27] MEDS: METOPROLOL SUCC 25MG EXT REL TAB PO SCH (07:46)
[2021-04-27] MEDS: oxyCODONE HCL IR 5 MG TAB (IMMEDIATE RELEASE) PO PRN ×3 (07:46→20:52)
[2021-04-27] MEDS: ASPIRIN 81 MG ECTAB PO SCH ×2 (07:47→20:43)
[2021-04-27] MEDS: busPIRone 5 MG TAB PO SCH ×3 (07:47→16:13)
[2021-04-27] MEDS: MULTIVITAMIN TAB PO SCH (07:47)
[2021-04-27] MEDS: DOCUSATE SODIUM/SENNA 50/8.6MG TAB PO SCH (07:47)
[2021-04-27] MEDS: CHOLECALCIFEROL 1,000 UNITS 25 MCG TAB PO SCH (07:47)
[2021-04-27] MEDS: ceFAZolin 1000MG 1,000 MG/7.5 ML SYR IV SCH (07:47)
[2021-04-27] MEDS: COLCHICINE 0.6 MG TAB PO SCH (07:47)
[2021-04-27] MEDS: DOCUSATE SODIUM 100 MG CAP PO SCH ×2 (07:48→20:43)
[2021-04-27] MEDS: POLYETHYLENE (MIRALAX) 17 GM PACK PO SCH (07:48)
--- NOTE | 2021-04-27 08:25 | Hospitalist Progress Note ---
Date of Service April 27, 2021 Assessment & Plan (1) Left hip pain: Plan: * Patient sustained a ground-level fall resulting in periprosthetic fracture of the LEFT distal femur * 04/25 complaining of L hip pain. Xray without acute pathology and CT obtained to r/o occult fracture --> negative for hip fracture POD#1 s/p ORIF with Dr Abernathy 04/26. EBL 400cc Hgb 11.2 post-op -- acute blood loss anemia from surgery and dilutional from IVF Plans for possible xarelto 10mg x 14 days given risk for DVT/PE -->ortho ordered ASA 81mg BID but can consider changing to Xarelto at d/c but would wait additional 24 hours per orthopedics Pain control/antiemetics prn -- reported less discomfort today, but still quite sore w movements Lasix 20mg x 1 this morning for +JVD --> monitor HR had been up to 130s this morning, regular, denied palpitations/chest pain/dizziness/n/v/abd pain at this time PT/OT following surgery (from [facility]) --> bed hold and can return when stable (2) Closed fracture of left distal femur: Plan: * Femur CT revealed acute comminuted and displaced fracture within the distal left femur. There is internal fixation of an old healed proximal left femoral fracture with an intramedullary shelby and interlocking femoral neck pin. * Patient currently in the immobilizer, pain being managed with Tylenol and oxycodone. * For OR for ORIF today, NPO, diet following Pain control ASA 81mg BID for now, consider Xarelto 10mg x 14 days given risk for DVT/PE but would wait additional 24 hours per orthopedics PT/OT--> to return to [facility] for continued rehab, is a bed hold (3) Aortic stenosis: Plan: * s/p TAVR in December 2019. * Followed by [facility] * Most recent echocardiogram done 07/06 showing hyperdynamic EF of 70% without obvious regional wall motion abnormalities. * --> repeat ECHO with bioprosthetic valve with acceptable transvalvular gradient/velocity * --> Of note, pericardial effusion has resolved compared to study 06/25/20 (needed pericardiocentesis 2020 1000cc bloody fluid) * Would advise against spinal anesthesia given her aortic stenosis Slightly volume up from IVF --> Given lasix 20mg PO x 1 this morning 2/10 for +JVD Monitor (4) Chronic diastolic CHF (congestive heart failure): Plan: * Echo from June 2020 revealed EF 70%, no obvious regional wall abnormalities. * Repeat Echo ordered, as above * Slightly volume up today, +JVD --> lasix 20mg PO x 1. * Not on diuretics as outpatient * Would advise against aggressive fluid replacement intraoperatively (5) CAD (coronary artery disease): Plan: * also has history of bioprosthetic aortic valve (s/p TAVR december 2019). Follows with Dr. Guzman * Cardiac cath in March 2019 revealed mild LAD disease. * Patient does not complain of chest pain or shortness of breath today. * Continue metoprolol but hold ASA in the setting of need for surgical interven tion. Would advise resumption of this 48 hours post op --> resumed BID 2/10 for DVT prophylaxis * History of pericardial effusion requiring pericardiocentesis in June 2020. Placed on colchicine daily. Echo in January 05 revealed near complete resolution. Colchicine continued * EKG showing no acute pathology. Incomplete right bundle branch block which is unchanged from prior EKG * Current revised cardiac risk index = 3; however, significant increased risk of never walking again, DVT/PE, skin breakdown and wounds leading to sepsis without surgical intervention * Continue metoprolol 12.5mg daily, ASA (6) Type 2 diabetes mellitus: Plan: * Currently on 14 units of Levemir daily. * Decreased dose to 8 u for this morning as NPO, resume usual dose in AM if keeping up with PO intake * Accu-Cheks ACHS with sliding scale coverage. * Hold Jardiance, Trulicity, Metformin during hospitalization. * BSGs acceptable but INCREASED TO 363 THIS AFTERNOON --> RN TO NOTIFY PHARMACY FOR ADDITIONAL ORDERS * --> continue to monitor (7) Mood disorder: Plan: * Continue BuSpar and citalopram. (8) DVT prophylaxis: Plan: * SCDs ordered. * Heparin SQ Q12 on board --> HELD FOR OR, RESUMED ASA BUT 81MG BID 2/10 FOR DVT PROPHYLAXIS FOR NOW * Would CONSIDER Xarelto 10mg daily x 14 days given this being a fracture which poses increased risk of DVT/PE Plan: [facility] IN NEXT 24-48 HOURS Admission and Anticipated Discharge Date Admission Date: April 24, 2021 Subjective patient evaluated this morning doing well pain controlled, reported still little soreness. controlled with ordered medications and awaiting next dose of medication. discussed rehab -- she feels she is not ready quite yet, maybe another day or two but wanted to see how she gets up/works with therapy again today prior to feeling comfortable tomorrow. No fever, chills, chest pain, shortness of breath. No abdominal pain, nausea or vomiting. Drinking lots of water. Does have some JVD and HR 110s but regular, and asymptomatic but will give dose of 20mg PO lasix and monitor response. Per ortho, ASA 81mg BID for DVT prophylaxis, but if wanting to use Xarelto, would wait until tomorrow to start. Questions/concerns addressed at this time. Review of Systems Review of Systems: All systems reviewed & are unremarkable except as noted in HPI & below Physical Exam Physical Exam: General: WN/WD elderly female resting in hospital bed sleeping, NAD HEENT: atraumatic, normocephalic, mmm, + JVD, trachea midline without deviation, HARD OF HEARING Resp: CTAB, no w/c/r, on room air CV: RRR (rate slightly tachycardic at 104bpm but regular), 3/6 harsh systolic murmur to carotids, no RLE edema, pulses palpable, cap refill <3 seconds GI: +BS throughout, soft, nontender Ext: dressing to LLE c/d/i, Prevena intact and light on, immobilizer in place, toes mobile, NVI, cap refill < 3 seconds Psych: alert, oriented to person, place/time 2021 Neuro: no focal deficit, answering questions appropriately Results & Data Results & Data ([facility]) Vital Signs (Past 12 Hours) Vital Signs Temp Pulse Pulse Resp BP BP Pulse Ox 04/27/21 07:20 36.3 C L 60 13 170/72 H 93 04/27/21 02:12 36.6 C 114 H 20 143/77 H 93 04/26/21 23:44 36.8 C 107 H 21 127/72 95 04/26/21 22:58 36.8 C 106 H 19 125/69 92 04/26/21 22:27 36.3 C L 108 H 18 128/72 91 04/26/21 21:57 36.9 C 111 H 22 107/55 L 92 04/26/21 21:40 37.2 C 103 H 26 H 119/61 94 04/26/21 21:32 105 H 20 104/56 L 97 04/26/21 21:20 103 H 17 139/100 90 04/26/21 21:10 100 H 18 142/64 H 100 04/26/21 21:01 101 H 20 146/63 H 99 04/26/21 20:49 36.9 C 102 H 23 114/75 99 Laboratory Results 04/27/21 04/27/21 04/27/21 Range/Units 07:52 05:33 05:33 WBC 10.68 (4.8-10.8) K/uL RBC 3.80 L (4.2-5.4) M/uL Hgb 11.2 L (12.0-16.0) g/dL Hct 35.2 L (37-47) % MCV 92.6 (80-100) fL MCH 29.5 (25-34) pg MCHC 31.8 L (32-36) g/dL RDW Std Deviation 48.6 H (36.4-46.3) fL RDW Coeff of Sharri 14.4 (11.5-14.5) % Plt Count 439 H (130-400) K/uL MPV 8.8 (7.4-10.4) fL Immature Gran % (Auto) 0.4 % Neut % (Auto) 81.6 % Lymph % (Auto) 8.6 % Sampson % (Auto) 9.2 % Eos % (Auto) 0.0 % Baso % (Auto) 0.2 % Neut # (Auto) 8.72 H (1.4-6.5) K/uL Lymph # (Auto) 0.92 L (1.2-3.4) K/uL [place]pson # (Auto) 0.98 H (0.11-0.59) K/uL Eos # (Auto) 0.00 (0-0.5) K/uL Baso # (Auto) 0.02 (0-0.2) K/uL Immature Gran # (Auto) 0.04 H (0.00-0.02) K/uL Sodium 135 L (136-145) mmol/L Potassium 4.0 (3.5-5.1) mmol/L Chloride 101 (98-107) mmol/L Carbon Dioxide 23 (21-32) mmol/L Anion Gap 11 (3-11) BUN 13 (6-23) mg/dl Creatinine 0.32 L (0.6-1.2) mg/dl Est Cr Clr Drug Dosing 117.9 ml/min Est GFR ( Amer) 118.5 ml/min Est GFR (Non-Af Amer) 102.2 ml/min BUN/Creatinine Ratio 40.6 H (10-20) Glucose 138 H (70-99(Fasting)) mg/dl POC Glucose 143 H (70-99) mg/dl Estimat Average Glucose mg/dl Hemoglobin A1c (4.5-5.6) % Calcium 7.7 L (8.5-10.1) mg/dl Magnesium 1.8 (1.7-2.4) mg/dl 04/26/21 04/26/21 04/26/21 Range/Units 22:00 21:12 20:53 WBC (4.8-10.8) K/uL RBC (4.2-5.4) M/uL Hgb 12.3 (12.0-16.0) g/dL Hct (37-47) % MCV (80-100) fL MCH (25-34) pg MCHC (32-36) g/dL RDW Std Deviation (36.4-46.3) fL RDW Coeff of Sharri (11.5-14.5) % Plt Count (130-400) K/uL MPV (7.4-10.4) fL Immature Gran % (Auto) % Neut % (Auto) % Lymph % (Auto) % [place] % (Auto) % Eos % (Auto) % Baso % (Auto) % Neut # (Auto) (1.4-6.5) K/uL Lymph # (Auto) (1.2-3.4) K/uL [place] # (Auto) (0.11-0.59) K/uL Eos # (Auto) (0-0.5) K/uL Baso # (Auto) (0-0.2) K/uL Immature Gran # (Auto) (0.00-0.02) K/uL Sodium (136-145) mmol/L Potassium (3.5-5.1) mmol/L Chloride (98-107) mmol/L Carbon Dioxide (21-32) mmol/L Anion Gap (3-11) BUN (6-23) mg/dl Creatinine (0.6-1.2) mg/dl Est Cr Clr Drug Dosing ml/min Est GFR ( Amer) ml/min Est GFR (Non-Af Amer) ml/min BUN/Creatinine Ratio (10-20) Glucose (70-99(Fasting)) mg/dl POC Glucose 96 97 (70-99) mg/dl Estimat Average Glucose mg/dl Hemoglobin A1c (4.5-5.6) % Calcium (8.5-10.1) mg/dl Magnesium (1.7-2.4) mg/dl 04/26/21 04/26/21 04/26/21 Range/Units 15:25 15:02 11:57 WBC (4.8-10.8) K/uL RBC (4.2-5.4) M/uL Hgb (12.0-16.0) g/dL Hct (37-47) % MCV (80-100) fL MCH (25-34) pg MCHC (32-36) g/dL RDW Std Deviation (36.4-46.3) fL RDW Coeff of Sharri (11.5-14.5) % Plt Count (130-400) K/uL MPV (7.4-10.4) fL Immature Gran % (Auto) % Neut % (Auto) % Lymph % (Auto) % Sampson % (Auto) % Eos % (Auto) % Baso % (Auto) % Neut # (Auto) (1.4-6.5) K/uL Lymph # (Auto) (1.2-3.4) K/uL [place] # (Auto) (0.11-0.59) K/uL Eos # (Auto) (0-0.5) K/uL Baso # (Auto) (0-0.2) K/uL Immature Gran # (Auto) (0.00-0.02) K/uL Sodium (136-145) mmol/L Potassium (3.5-5.1) mmol/L Chloride (98-107) mmol/L Carbon Dioxide (21-32) mmol/L Anion Gap (3-11) BUN (6-23) mg/dl Creatinine (0.6-1.2) mg/dl Est Cr Clr Drug Dosing ml/min Est GFR ( Amer) ml/min Est GFR (Non-Af Amer) ml/min BUN/Creatinine Ratio (10-20) Glucose (70-99(Fasting)) mg/dl POC Glucose 119 H 69 L* 90 (70-99) mg/dl Estimat Average Glucose mg/dl Hemoglobin A1c (4.5-5.6) % Calcium (8.5-10.1) mg/dl Magnesium (1.7-2.4) mg/dl 04/26/21 Range/Units 07:31 WBC (4.8-10.8) K/uL RBC (4.2-5.4) M/uL Hgb (12.0-16.0) g/dL Hct (37-47) % MCV (80-100) fL MCH (25-34) pg MCHC (32-36) g/dL RDW Std Deviation (36.4-46.3) fL RDW Coeff of Sharri (11.5-14.5) % Plt Count (130-400) K/uL MPV (7.4-10.4) fL Immature Gran % (Auto) % Neut % (Auto) % Lymph % (Auto) % Sampson % (Auto) % Eos % (Auto) % Baso % (Auto) % Neut # (Auto) (1.4-6.5) K/uL Lymph # (Auto) (1.2-3.4) K/uL [place]pson # (Auto) (0.11-0.59) K/uL Eos # (Auto) (0-0.5) K/uL Baso # (Auto) (0-0.2) K/uL Immature Gran # (Auto) (0.00-0.02) K/uL Sodium (136-145) mmol/L Potassium (3.5-5.1) mmol/L Chloride (98-107) mmol/L Carbon Dioxide (21-32) mmol/L Anion Gap (3-11) BUN (6-23) mg/dl Creatinine (0.6-1.2) mg/dl Est Cr Clr Drug Dosing ml/min Est GFR ( Amer) ml/min Est GFR (Non-Af Amer) ml/min BUN/Creatinine Ratio (10-20) Glucose (70-99(Fasting)) mg/dl POC Glucose (70-99) mg/dl Estimat Average Glucose 171 mg/dl Hemoglobin A1c 7.6 H (4.5-5.6) % Calcium (8.5-10.1) mg/dl Magnesium (1.7-2.4) mg/dl PG Care Time/CCT Total # of Minutes Spent Total Time Spent with Patient: Total time spent is greater than 50% in coordination of care (as documented) at patient's floor/unit and/or counseling patient: Coding Level of Care Code 85435 Subseq Hosp Care Lvl 3 Diagnoses Left hip pain M25.552 Closed fracture of left distal femur S72.402A Aortic stenosis I35.0 Cardiac valve disease etiology: etiology unspecified Chronic diastolic CHF (congestive heart failure) I50.32 CAD (coronary artery disease) I25.10 Type 2 diabetes mellitus E11.9 Mood disorder F39 DVT prophylaxis Z29.9 (1) Aortic stenosis Cardiac valve disease etiology: etiology unspecified Qualified Code(s): I35.0 - Nonrheumatic aortic (valve) stenosis
[2021-04-27] MEDS: INSULIN ASPART PER UNIT SC SCH ×5 (09:03→21:00)
[2021-04-27] MEDS: INSULIN DETEMIR FLEXPEN/FLEX TOUCH 100 UNITS/ML 3ML SC SCH (09:03)
--- NOTE | 2021-04-27 09:04 | Orthopedic Progress Note ---
Date of Service April 27, 2021 Assessment & Plan (1) Closed fracture of distal end of left femur: Plan: POD 1 s/p ORIF Left comminuted distal femur fracture. PT/OT. NWB LLE with immobilizer on at all times. DVT prophylaxis - currently on ASA bid. SCD's Pain management as written. Admission and Anticipated Discharge Date Admission Date: April 24, 2021 Subjective POD 1 Pt sitting up in bed. She has just finished her breakfast. States her pain is controlled currently. No other complaints. Denies SOB,CP,LH Physical Exam Physical Exam: Dressings C/D/I. Calves soft, NT. NV intact. Results & Data ([facility]) Vital Signs (Past 12 Hours) Vital Signs Temp Pulse Pulse Resp BP BP Pulse Ox 04/27/21 07:20 36.3 C L 60 13 170/72 H 93 04/27/21 02:12 36.6 C 114 H 20 143/77 H 93 04/26/21 23:44 36.8 C 107 H 21 127/72 95 04/26/21 22:58 36.8 C 106 H 19 125/69 92 04/26/21 22:27 36.3 C L 108 H 18 128/72 91 04/26/21 21:57 36.9 C 111 H 22 107/55 L 92 04/26/21 21:40 37.2 C 103 H 26 H 119/61 94 04/26/21 21:32 105 H 20 104/56 L 97 04/26/21 21:20 103 H 17 139/100 90 04/26/21 21:10 100 H 18 142/64 H 100 04/26/21 21:01 101 H 20 146/63 H 99 Laboratory Results Laboratory Results WBC 10.68 K/uL (4.8-10.8) 04/27/21 05:33 RBC 3.80 M/uL (4.2-5.4) L 04/27/21 05:33 Hgb 11.2 g/dL (12.0-16.0) L 04/27/21 05:33 Hct 35.2 % (37-47) L 04/27/21 05:33 MCV 92.6 fL (80-100) 04/27/21 05:33 MCH 29.5 pg (25-34) 04/27/21 05:33 MCHC 31.8 g/dL (32-36) L 04/27/21 05:33 RDW Std Deviation 48.6 fL (36.4-46.3) H 04/27/21 05:33 RDW Coeff of Sharri 14.4 % (11.5-14.5) 04/27/21 05:33 Plt Count 439 K/uL (130-400) H 04/27/21 05:33 MPV 8.8 fL (7.4-10.4) 04/27/21 05:33 Immature Gran % (Auto) 0.4 % 04/27/21 05:33 Neut % (Auto) 81.6 % 04/27/21 05:33 Lymph % (Auto) 8.6 % 04/27/21 05:33 [place] % (Auto) 9.2 % 04/27/21 05:33 Eos % (Auto) 0.0 % 04/27/21 05:33 Baso % (Auto) 0.2 % 04/27/21 05:33 Neut # (Auto) 8.72 K/uL (1.4-6.5) H 04/27/21 05:33 Lymph # (Auto) 0.92 K/uL (1.2-3.4) L 04/27/21 05:33 [place] # (Auto) 0.98 K/uL (0.11-0.59) H 04/27/21 05:33 Eos # (Auto) 0.00 K/uL (0-0.5) 04/27/21 05:33 Baso # (Auto) 0.02 K/uL (0-0.2) 04/27/21 05:33 Immature Gran # (Auto) 0.04 K/uL (0.00-0.02) H 04/27/21 05:33 PT 10.4 Seconds (9.0-12.0) 04/24/21 13:36 INR 1.0 (0.9-1.1) 04/24/21 13:36 APTT 27.4 Seconds (21.0-31.0) 04/24/21 13:36 PTT Ratio 1.0 04/24/21 13:36 Sodium 135 mmol/L (136-145) L 04/27/21 05:33 Potassium 4.0 mmol/L (3.5-5.1) 04/27/21 05:33 Chloride 101 mmol/L (98-107) 04/27/21 05:33 Carbon Dioxide 23 mmol/L (21-32) 04/27/21 05:33 Anion Gap 11 (3-11) 04/27/21 05:33 BUN 13 mg/dl (6-23) 04/27/21 05:33 Creatinine 0.32 mg/dl (0.6-1.2) L 04/27/21 05:33 Est Cr Clr Drug Dosing 117.9 ml/min 04/27/21 05:33 Est GFR ( Amer) 118.5 ml/min 04/27/21 05:33 Est GFR (Non-Af Amer) 102.2 ml/min 04/27/21 05:33 BUN/Creatinine Ratio 40.6 (10-20) H 04/27/21 05:33 Glucose 138 mg/dl (70-99(Fasting)) H 04/27/21 05:33 POC Glucose 143 mg/dl (70-99) H 04/27/21 07:52 Estimat Average Glucose 171 mg/dl 04/26/21 07:31 Hemoglobin A1c 7.6 % (4.5-5.6) H 04/26/21 07:31 Calcium 7.7 mg/dl (8.5-10.1) L 04/27/21 05:33 Magnesium 1.8 mg/dl (1.7-2.4) 04/27/21 05:33 Total Bilirubin 0.7 mg/dl (0.2-1.0) 04/24/21 13:36 AST 19 U/L (13-39) 04/24/21 13:36 ALT 19 U/L (7-52) 04/24/21 13:36 Alkaline Phosphatase 72 U/L (34-104) 04/24/21 13:36 Total Protein 6.2 gm/dl (6.0-8.3) 04/24/21 13:36 Albumin 3.2 gm/dl (3.4-5.0) L 04/24/21 13:36 Globulin 3.0 gm/dl (2.5-4.0) 04/24/21 13:36 Albumin/Globulin Ratio 1.1 (0.9-2) 04/24/21 13:36 Lipase 37 U/L (11-82) 04/24/21 13:36 Urine Color Yellow 04/24/21 22:00 Urine Appearance Clear (Clear) 04/24/21 22:00 Urine pH 7.5 (4.5-7.5) 04/24/21 22:00 Ur Specific [place] 1.026 (1.000-1.030) 04/24/21 22:00 Urine Protein Negative (Negative) 04/24/21 22:00 Urine Glucose (UA) 3+ (Negative) H 04/24/21 22:00 Urine Ketones Negative (Negative) 04/24/21 22:00 Urine Blood Negative (Negative) 04/24/21 22:00 Urine Nitrite Negative (Negative) 04/24/21 22:00 Urine Bilirubin Negative (Negative) 04/24/21 22:00 Urine Urobilinogen Negative (Negative) 04/24/21 22:00 Ur Leukocyte Esterase Negative (Negative) 04/24/21 22:00 Nasal Screen MRSA (PCR) Negative (Negative) 04/25/21 01:50 SARS-CoV-2, RNA, NAAT NEGATIVE (NEGATIVE) 04/24/21 Unknown Blood Type O Positive 04/25/21 14:41 Antibody Screen NEGATIVE 04/25/21 14:41 Impressions Femur X-Ray 04/26/21 13:00 FL femur LT 2V CLINICAL HISTORY: LT ORIF PERIPROSTHETIC FEMUR FX COMPARISON STUDY: Left femur CT 04/24/2021 FLUOROSCOPY TIME: 1 minute and 26 seconds. FINDINGS: 6 fluoroscopic spot images of the left femur. Status post internal fixation of a distal left femoral periprosthetic fracture with a lateral cortical plate transfixed with screws. There is improved anatomic alignment. Hardware appears intact. The intramedullary shelby is in place. There is normal, healed proximal left femoral fracture again noted. IMPRESSION: Fluoroscopic assistance provided for internal fixation of a distal left femoral periprosthetic fracture. ACT 112: Negative or not required by law. Electronically signed by: Donavan Martinez M.D. 04/26/2021 8:55 PM (1) Closed fracture of distal end of left femur Encounter type: initial encounter Fracture morphology: unspecified fracture morphology Qualified Code(s): S72.402A - Unspecified fracture of lower end of left femur, initial encounter for closed fracture
[2021-04-27] MEDS: ACETAMINOPHEN 325 MG TAB PO PRN ×2 (11:33→23:06)
[2021-04-27] MEDS ORDERED: FUROSEMIDE 20 MG TAB PO ONE (11:45)
[2021-04-27] MEDS ORDERED: MAGNESIUM SULFATE / D5W 1 GM/100 ML BAG IV ONE (14:45)
[2021-04-27] MEDS: CITALOPRAM 20 MG TAB PO SCH (20:43)
[2021-04-28 07:34] LABS: Basophils # (auto) 0.03 K/uL (0-0.2); Basophils % (auto) 0.3 %; Eosinophils % (auto) 4.7 %; Hematocrit (blood only) 31.3 % (37-47); Hemoglobin 10.1 g/dL (12.0-16.0); Immature Granulocytes # (auto) 0.02 K/uL (0.00-0.02); Immature Granulocytes % (auto) 0.2 %; Lymphocytes # (auto) 1.06 K/uL (1.2-3.4); Mean Corpuscular Hemoglobin 29.3 pg (25-34); Mean Corpuscular Hgb Conc 32.3 g/dL (32-36); Mean Corpuscular Volume 90.7 fL (80-100); Mean Platelet Volume 8.6 fL (7.4-10.4); Monocytes # (auto) 1.22 K/uL (0.11-0.59); Monocytes % (auto) 11.6 %; Neutrophils # (auto) 7.73 K/uL (1.4-6.5); Neutrophils % (auto) 73.2 %; Platelet Count 446 K/uL (130-400); RDW Coefficient of Variation 14.6 % (11.5-14.5); RDW Standard Deviation 48.1 fL (36.4-46.3); Red Blood Count 3.45 M/uL (4.2-5.4); White Blood Count 10.56 K/uL (4.8-10.8)
[2021-04-28] MEDS: POLYETHYLENE (MIRALAX) 17 GM PACK PO SCH (07:48)
[2021-04-28] MEDS: ASPIRIN 81 MG ECTAB PO SCH ×2 (07:48→21:55)
[2021-04-28] MEDS: busPIRone 5 MG TAB PO SCH ×3 (07:48→17:32)
[2021-04-28] MEDS: MULTIVITAMIN TAB PO SCH (07:48)
[2021-04-28] MEDS: DOCUSATE SODIUM 100 MG CAP PO SCH ×2 (07:48→21:55)
[2021-04-28] MEDS: COLCHICINE 0.6 MG TAB PO SCH (07:48)
[2021-04-28] MEDS: DOCUSATE SODIUM/SENNA 50/8.6MG TAB PO SCH (07:49)
[2021-04-28] MEDS: CHOLECALCIFEROL 1,000 UNITS 25 MCG TAB PO SCH (07:49)
[2021-04-28] MEDS: METOPROLOL SUCC 25MG EXT REL TAB PO SCH (07:49)
--- NOTE | 2021-04-28 07:49 | Hospitalist Progress Note ---
Date of Service April 28, 2021 Assessment & Plan (1) Left hip pain: Plan: * Patient sustained a ground-level fall resulting in periprosthetic fracture of the LEFT distal femur * 04/25 complaining of L hip pain. Xray without acute pathology and CT obtained to r/o occult fracture --> negative for hip fracture POD#2 s/p ORIF with Dr Abernathy 04/26. EBL 400cc Hgb 11.2 post-op -- acute blood loss anemia from surgery and dilutional from IVF --> currently 10.1 --> Iron low 14, transferrin 176 -- give venofer x 1. B12 also borderline low and complaints of neuropathy at baseline --> IM while inpatient and can continue at d/c with PO supplementaion Plans for possible xarelto 10mg x 14 days given risk for DVT/PE -->ortho ordered ASA 81mg BID but can consider changing to Xarelto at d/c but would wait additional until tomorrow morning at earliest. will discuss with patient in am if willing to utilize xarelto Pain control/antiemetics prn -- reported less discomfort today, but still quite sore w movements but improving, controlled with tylenol Lasix 20mg x 1 morning 04/27 for some JVD with elevated HR --> low 100s today, no palpitations. venofer/B12 replacement as above PT/OT following surgery (from [facility]) --> bed hold and can return when stable, likely over the weekend (2) Closed fracture of left distal femur: Plan: * Femur CT revealed acute comminuted and displaced fracture within the distal left femur. There is internal fixation of an old healed proximal left femoral fracture with an intramedullary shelby and interlocking femoral neck pin. * Patient currently in the immobilizer, pain being managed with Tylenol and oxycodone. * For OR for ORIF today, NPO, diet following Pain control -- effective w Tylenol, occasional oxycodone as needed for breakthrough +BM 04/28 ASA 81mg BID for now, consider Xarelto 10mg x 14 days given risk for DVT/PE but would wait until aM PER ORTHO PT/OT--> to return to [facility] for continued rehab, is a bed hold (3) Aortic stenosis: Plan: * s/p TAVR in December 2019. * Followed by [facility] * Most recent echocardiogram done 07/06 showing hyperdynamic EF of 70% without obvious regional wall motion abnormalities. * --> repeat ECHO with bioprosthetic valve with acceptable transvalvular gradient/velocity * --> Of note, pericardial effusion has resolved compared to study 06/25/20 (needed pericardiocentesis 2020 1000cc bloody fluid) * Would advise against spinal anesthesia given her aortic stenosis Slightly volume up from IVF --> Given lasix 20mg PO x 1 04/27 for JVD, not appreciated this morning Venofer/B12 replacement as above for HR, regular, asymptomatic Monitor (4) Chronic diastolic CHF (congestive heart failure): Plan: * Echo from June 2020 revealed EF 70%, no obvious regional wall abnormalities. * Repeat Echo ordered, as above * Slightly volume up 04/27, +JVD --> lasix 20mg PO x 1. * Not on diuretics as outpatient * Would advise against aggressive fluid replacement intraoperatively Euvolemic on exam 04/28 (5) CAD (coronary artery disease): Plan: * also has history of bioprosthetic aortic valve (s/p TAVR december 2019). Follows with Dr. Guzman * Cardiac cath in March 2019 revealed mild LAD disease. * Patient does not complain of chest pain or shortness of breath today. * Continue metoprolol but hold ASA in the setting of need for surgical intervention. Would advise resumption of this 48 hours post op --> resumed BID 04/27 for DVT prophylaxis * History of pericardial effusion requiring pericardiocentesis in June 2020. Placed on colchicine daily. Echo in January 05 revealed near complete resolution. Colchicine continued * EKG showing no acute pathology. Incomplete right bundle branch block which is unchanged from prior EKG * Current revised cardiac risk index = 3; however, significant increased risk of never walking again, DVT/PE, skin breakdown and wounds leading to sepsis without surgical intervention * Continue metoprolol 12.5mg daily, ASA (6) Type 2 diabetes mellitus: Plan: * Currently on 14 units of Levemir daily. * Decreased dose to 8 u for this morning as NPO, resume usual dose in AM if keeping up with PO intake * Accu-Cheks ACHS with sliding scale coverage. * Hold Jardiance, Trulicity, Metformin during hospitalization. * BSGs acceptable but INCREASED TO 363 afternoon 04/27, improved * Elevated again this afternoon -> pharmacy notified for BSG 294 Would rec decreasing home regimen/consolidation to prevent issues as A1c shows good control and maybe aggressive treatment (7) Mood disorder: Plan: * Continue BuSpar and citalopram. (8) DVT prophylaxis: Plan: * SCDs ordered. * Heparin SQ Q12 on board --> HELD FOR OR, RESUMED ASA BUT 81MG BID 04/27 FOR DVT PROPHYLAXIS FOR NOW * Would CONSIDER Xarelto 10mg daily x 14 days given this being a fracture which poses increased risk of DVT/PE Plan: [facility] IN NEXT 24-48 HOURS Admission and Anticipated Discharge Date Admission Date: April 24, 2021 Subjective patient evaluated this morning up in bed eating lunch -- states way too much food/meat pain controlled with tylenol, and has been working with therapy painful with walking and states she isn't able to do that much just yet, does not feel comfortable with d/c just yet Tachycardic but regular, denied palpations/lightheadedness/dizziness chest pain or shortness of breath. Discussed low iron/B12 and replacement ordered Blood sugars elevated -- contacted pharmacy for adjustments and they will continue to monitor No fever, chills, abdominal pain, nausea or vomiting at this time. questions/concerns addressed Review of Systems Review of Systems: All systems reviewed & are unremarkable except as noted in HPI & below Physical Exam Physical Exam: General: WN/WD elderly female resting in hospital bed sleeping, NAD, general pallor HEENT: atraumatic, normocephalic, mmm, trachea midline without deviation, HARD OF HEARING Resp: CTAB, no w/c/r, on room air 95% CV: RRR (rate slightly tachycardic at 104bpm but regular), 3/6 systolic murmur to carotids, no RLE edema, pulses palpable, cap refill <3 seconds GI: +BS throughout, soft, nontender Ext: dressing to LLE c/d/i, Prevena intact and light on, immobilizer in place, toes mobile, NVI, cap refill < 3 seconds, decreased sensation to light touch b/l le Psych: alert, oriented to person, place/time 2021 Neuro: no focal deficit, answering questions appropriately Results & Data Results & Data ([facility]) Vital Signs (Past 12 Hours) Vital Signs Temp Pulse Resp BP Pulse Ox 04/27/21 22:14 37.0 C 108 H 20 122/71 94 Laboratory Results 04/28/21 04/28/21 04/28/21 Range/Units 11:51 08:08 08:08 WBC (4.8-10.8) K/uL RBC (4.2-5.4) M/uL Hgb (12.0-16.0) g/dL Hct (37-47) % MCV (80-100) fL MCH (25-34) pg MCHC (32-36) g/dL RDW Std Deviation (36.4-46.3) fL RDW Coeff of Sharri (11.5-14.5) % Plt Count (130-400) K/uL MPV (7.4-10.4) fL Immature Gran % (Auto) % Neut % (Auto) % Lymph % (Auto) % [place] % (Auto) % Eos % (Auto) % Baso % (Auto) % Neut # (Auto) (1.4-6.5) K/uL Lymph # (Auto) (1.2-3.4) K/uL [place] # (Auto) (0.11-0.59) K/uL Eos # (Auto) (0-0.5) K/uL Baso # (Auto) (0-0.2) K/uL Immature Gran # (Auto) (0.00-0.02) K/uL Sodium (136-145) mmol/L Potassium (3.5-5.1) mmol/L Chloride (98-107) mmol/L Carbon Dioxide (21-32) mmol/L Anion Gap (3-11) BUN (6-23) mg/dl Creatinine (0.6-1.2) mg/dl Est Cr Clr Drug Dosing ml/min Est GFR ( Amer) ml/min Est GFR (Non-Af Amer) ml/min BUN/Creatinine Ratio (10-20) Glucose (70-99(Fasting)) mg/dl POC Glucose 294 H (70-99) mg/dl Calcium (8.5-10.1) mg/dl Magnesium (1.7-2.4) mg/dl Iron (35-150) mcg/dl Unsaturated IBC 222 (155-355) mcg/dl Transferrin 176 L (200-360) mg/dl Ferritin 168.8 (8-388) ng/ml Vitamin B12 326 (211-911) pg/ml TSH (0.300-4.500) uIu/ml 04/28/21 04/28/21 04/28/21 Range/Units 08:08 08:05 06:57 WBC (4.8-10.8) K/uL RBC (4.2-5.4) M/uL Hgb (12.0-16.0) g/dL Hct (37-47) % MCV (80-100) fL MCH (25-34) pg MCHC (32-36) g/dL RDW Std Deviation (36.4-46.3) fL RDW Coeff of Sharri (11.5-14.5) % Plt Count (130-400) K/uL MPV (7.4-10.4) fL Immature Gran % (Auto) % Neut % (Auto) % Lymph % (Auto) % [place] % (Auto) % Eos % (Auto) % Baso % (Auto) % Neut # (Auto) (1.4-6.5) K/uL Lymph # (Auto) (1.2-3.4) K/uL [place] # (Auto) (0.11-0.59) K/uL Eos # (Auto) (0-0.5) K/uL Baso # (Auto) (0-0.2) K/uL Immature Gran # (Auto) (0.00-0.02) K/uL Sodium (136-145) mmol/L Potassium (3.5-5.1) mmol/L Chloride (98-107) mmol/L Carbon Dioxide (21-32) mmol/L Anion Gap (3-11) BUN (6-23) mg/dl Creatinine (0.6-1.2) mg/dl Est Cr Clr Drug Dosing ml/min Est GFR ( Amer) ml/min Est GFR (Non-Af Amer) ml/min BUN/Creatinine Ratio (10-20) Glucose (70-99(Fasting)) mg/dl POC Glucose 184 H (70-99) mg/dl Calcium (8.5-10.1) mg/dl Magnesium (1.7-2.4) mg/dl Iron 14 L (35-150) mcg/dl Unsaturated IBC (155-355) mcg/dl Transferrin (200-360) mg/dl Ferritin (8-388) ng/ml Vitamin B12 (211-911) pg/ml TSH 0.876 (0.300-4.500) uIu/ml 04/28/21 04/28/21 04/27/21 Range/Units 06:57 06:57 21:00 WBC 10.56 (4.8-10.8) K/uL RBC 3.45 L (4.2-5.4) M/uL Hgb 10.1 L (12.0-16.0) g/dL Hct 31.3 L (37-47) % MCV 90.7 (80-100) fL MCH 29.3 (25-34) pg MCHC 32.3 (32-36) g/dL RDW Std Deviation 48.1 H (36.4-46.3) fL RDW Coeff of Sharri 14.6 H (11.5-14.5) % Plt Count 446 H (130-400) K/uL MPV 8.6 (7.4-10.4) fL Immature Gran % (Auto) 0.2 % Neut % (Auto) 73.2 % Lymph % (Auto) 10.0 % [place] % (Auto) 11.6 % Eos % (Auto) 4.7 % Baso % (Auto) 0.3 % Neut # (Auto) 7.73 H (1.4-6.5) K/uL Lymph # (Auto) 1.06 L (1.2-3.4) K/uL [place] # (Auto) 1.22 H (0.11-0.59) K/uL Eos # (Auto) 0.50 (0-0.5) K/uL Baso # (Auto) 0.03 (0-0.2) K/uL Immature Gran # (Auto) 0.02 (0.00-0.02) K/uL Sodium 133 L (136-145) mmol/L Potassium 3.8 (3.5-5.1) mmol/L Chloride 98 (98-107) mmol/L Carbon Dioxide 28 (21-32) mmol/L Anion Gap 7 (3-11) BUN 11 (6-23) mg/dl Creatinine 0.28 L (0.6-1.2) mg/dl Est Cr Clr Drug Dosing 134.8 ml/min Est GFR ( Amer) 123.8 ml/min Est GFR (Non-Af Amer) 106.8 ml/min BUN/Creatinine Ratio 39.3 H (10-20) Glucose 194 H (70-99(Fasting)) mg/dl POC Glucose 212 H (70-99) mg/dl Calcium 7.9 L (8.5-10.1) mg/dl Magnesium 1.8 (1.7-2.4) mg/dl Iron (35-150) mcg/dl Unsaturated IBC (155-355) mcg/dl Transferrin (200-360) mg/dl Ferritin (8-388) ng/ml Vitamin B12 (211-911) pg/ml TSH (0.300-4.500) uIu/ml 04/27/21 04/27/21 Range/Units 16:58 13:08 WBC (4.8-10.8) K/uL RBC (4.2-5.4) M/uL Hgb (12.0-16.0) g/dL Hct (37-47) % MCV (80-100) fL MCH (25-34) pg MCHC (32-36) g/dL RDW Std Deviation (36.4-46.3) fL RDW Coeff of Sharri (11.5-14.5) % Plt Count (130-400) K/uL MPV (7.4-10.4) fL Immature Gran % (Auto) % Neut % (Auto) % Lymph % (Auto) % [place] % (Auto) % Eos % (Auto) % Baso % (Auto) % Neut # (Auto) (1.4-6.5) K/uL Lymph # (Auto) (1.2-3.4) K/uL [place] # (Auto) (0.11-0.59) K/uL Eos # (Auto) (0-0.5) K/uL Baso # (Auto) (0-0.2) K/uL Immature Gran # (Auto) (0.00-0.02) K/uL Sodium (136-145) mmol/L Potassium (3.5-5.1) mmol/L Chloride (98-107) mmol/L Carbon Dioxide (21-32) mmol/L Anion Gap (3-11) BUN (6-23) mg/dl Creatinine (0.6-1.2) mg/dl Est Cr Clr Drug Dosing ml/min Est GFR ( Amer) ml/min Est GFR (Non-Af Amer) ml/min BUN/Creatinine Ratio (10-20) Glucose (70-99(Fasting)) mg/dl POC Glucose 252 H 363 H* (70-99) mg/dl Calcium (8.5-10.1) mg/dl Magnesium (1.7-2.4) mg/dl Iron (35-150) mcg/dl Unsaturated IBC (155-355) mcg/dl Transferrin (200-360) mg/dl Ferritin (8-388) ng/ml Vitamin B12 (211-911) pg/ml TSH (0.300-4.500) uIu/ml PG Care Time/CCT Total # of Minutes Spent Total Time Spent with Patient: Total time spent is greater than 50% in coordination of care (as documented) at patient's floor/unit and/or counseling patient: Coding Level of Care Code 89565 Subseq Hosp Care Lvl 3 Diagnoses Left hip pain M25.552 Closed fracture of left distal femur S72.402A Aortic stenosis I35.0 Cardiac valve disease etiology: etiology unspecified Chronic diastolic CHF (congestive heart failure) I50.32 CAD (coronary artery disease) I25.10 Type 2 diabetes mellitus E11.9 Mood disorder F39 DVT prophylaxis Z29.9 (1) Aortic stenosis Cardiac valve disease etiology: etiology unspecified Qualified Code(s): I35.0 - Nonrheumatic aortic (valve) stenosis
[2021-04-28] MEDS: INSULIN ASPART PER UNIT SC SCH ×4 (08:16→21:53)
[2021-04-28] MEDS: INSULIN DETEMIR FLEXPEN/FLEX TOUCH 100 UNITS/ML 3ML SC SCH ×2 (08:17→08:43)
[2021-04-28] MEDS ORDERED: INSULIN DETEMIR FLEXPEN/FLEX TOUCH 100 UNITS/ML 3ML SC SCH (09:00)
[2021-04-28 09:51] LABS: Ferritin 168.8 ng/ml (8-388)
[2021-04-28] MEDS: CYANOCOBALAMIN 1000 MCG/ML VIAL IM SCH (09:53)
[2021-04-28 09:58] LABS: BUN Creatinine Ratio 39.3 (10-20); Calcium 7.9 mg/dl (8.5-10.1); Creatinine Clr Calc Pharmacy 134.8 ml/min; Est GFR (African American) 123.8 ml/min; Est GFR (Non-African American) 106.8 ml/min; Magnesium 1.8 mg/dl (1.7-2.4); Potassium 3.8 mmol/L (3.5-5.1)
--- NOTE | 2021-04-28 10:19 | Pharmacy Report ---
Pharmacy Glycemic Short Note 2 - Date of Service April 28, 2021 - Glycemic Short BSG Results (Last 24 hours): 04/27/21 04/27/21 04/27/21 12:04 12:06 13:08 Glucose POC Glucose 321 H* 304 H* 363 H* 04/27/21 04/27/21 04/28/21 16:58 21:00 06:57 Glucose 194 H POC Glucose 252 H 212 H 04/28/21 08:05 Glucose POC Glucose 184 H OUTPATIENT ANTIDIABETIC REGIMEN: * Levemir 14 units daily * Novolog SSI * Jardiance 25mg PO daily * Trulicity 0.75mg SQ qMonday * Metformin 1000mg PO BID * HbA1c: 7.6% (04/26/21) ASSESSMENT: 04/28/21 * Patient's BSGs yesterday were [phone] mg/dL. Fasting today is 184 mg/dL. * Patient received 40 units of insulin yesterday (10 units of basal and 30 units of bolus). * Increase Levemir to home dose of 14 units as fasting BSGs trending upwards. * Tighten CR slightly. Continue Novolog. 04/26/21: * Ms Harrington will be going to the OR today for ORIF L femur. She is NPO until then. * Levemir dose reduced this morning while pt is NPO. Will likely increase tomorrow if pt tolerating diet post-op. 04/25 * 86 year old admitted with femur fracture. Pharmacy consulted for glycemic management * Fasting BSG this AM 81 mg/dL - per notes, patient received home Levemir dose yesterday. Fasting BSG below goal range for patient, therefore will plan to reduce dose by ~25% * Will trial stress of 2 dosing for novolog for now. Notes suggest possible surgery tomorrow 04/26 PLAN FOR INPATIENT GLYCEMIC CONTROL: * Hold outpatient oral diabetes medications * Basal insulin * Levemir 14 units SQ daily * Bolus insulin * NovoLog per scale ACHS or Q6hrs while NPO * Goal Range: Low 120 mg/dL - High 160 mg/dL * Correction Factor: 25 mg/dL/unit * Nutritional / Prandial insulin per carb ratio of 1 unit per 7 grams CHO consumed PLAN FOR DISCHARGE: * A1c: 7.6% * This A1c indicates excellent glycemic control and may in fact be too aggressive. Goal A1c for this 86yo patient likely around ~8-8.5%. * Could d/c Novolog for now. * Hesitant to d/c Jardiance or Trulicity as patient has positive cardiac history including CHF and these medications have proven benefit in these patients.
--- NOTE | 2021-04-28 10:29 | Orthopedic Progress Note ---
Date of Service April 28, 2021 Assessment & Plan (1) Closed fracture of distal end of left femur: Plan: POD 2 s/p ORIF Left comminuted distal femur fracture. Daily dressing changes. PT/OT. NWB LLE with immobilizer on at all times. DVT prophylaxis - currently on ASA bid. SCD's Pain management as written. Patient stable orthopedically for return to [facility]. Admission and Anticipated Discharge Date Admission Date: April 24, 2021 Subjective POD 2 Patient resting comfortably in bed. No complaints this morning. Physical Exam Physical Exam: Prevena dressing intact however patient had some increased bloody drainage on the distal posterior aspect of the dressing. I felt it was better to get rid of the Prevena dressing and put a regular dressing on secondary to the possibilities of tissue maceration. Prevena dressing complete ly removed. Incision is very benign. No erythema. Minimal swelling noted. New dressing applied with use of Adaptic, 4 x 4's, ABDs, 6 inch Vikash wrap. Immobilizer reapplied. Patient tolerated dressing change very well. Neurovascular intact. Toes are mobile. Results & Data ([facility]) Vital Signs (Past 12 Hours) Vital Signs Temp Pulse Resp BP Pulse Ox 04/28/21 08:09 36.9 C 107 H 18 128/75 95 (1) Closed fracture of distal end of left femur Encounter type: initial encounter Fracture morphology: unspecified fracture morphology Qualified Code(s): S72.402A - Unspecified fracture of lower end of left femur, initial encounter for closed fracture
[2021-04-28] MEDS ORDERED: INSULIN DETEMIR FLEXPEN/FLEX TOUCH 100 UNITS/ML 3ML SC ONE (12:00)
[2021-04-28] MEDS: oxyCODONE HCL IR 5 MG TAB (IMMEDIATE RELEASE) PO PRN ×2 (13:20→21:55)
[2021-04-28] MEDS ORDERED: METOPROLOL TARTRATE 25 MG TAB PO ONE (17:36)
[2021-04-28] MEDS ORDERED: SODIUM CHLORIDE 0.9% 1000ML 250 ML IV ONE (18:15)
[2021-04-28] MEDS: ACETAMINOPHEN 325 MG TAB PO PRN (21:54)
[2021-04-28] MEDS: CITALOPRAM 20 MG TAB PO SCH (21:56)
--- NOTE | 2021-04-29 06:38 | Orthopedic Progress Note ---
Date of Service April 29, 2021 Assessment & Plan (1) Closed fracture of distal end of left femur: Plan: POD 3 s/p ORIF Left comminuted distal femur fracture. Daily dressing changes. PT/OT. NWB LLE with immobilizer on at all times. DVT prophylaxis - currently on ASA bid. SCD's Pain management as written. Patient stable orthopedically for return to [facility]. Ortho to sign off at this time, f/u with Dr Abernathy team in 12-14 days. [phone] for appt. Admission and Anticipated Discharge Date Admission Date: April 24, 2021 Subjective POD #3 Review of Systems Constitutional: no fever and no chills Respiratory: no cough and no dyspnea Cardiovascular: no chest pain, no dyspnea and no orthopnea Gastrointestinal: no abdominal pain, no nausea and no vomiting Physical Exam Physical Exam: Left Hip: Incision is clean and dry, no erythema. mild swelling. Immobilizer reapplied. Patient tolerated dressing change very well. Neurovascular intact. Toes are mobile. Results & Data ([facility]) Vital Signs (Past 12 Hours) Vital Signs Temp Pulse Resp BP Pulse Ox 04/28/21 22:36 37.8 C H 97 H 20 103/63 93 (1) Closed fracture of distal end of left femur Encounter type: initial encounter Fracture morphology: unspecified fracture morphology Qualified Code(s): S72.402A - Unspecified fracture of lower end of left femur, initial encounter for closed fracture
[2021-04-29 06:45] LABS: Albumin Globulin Ratio 0.9 (0.9-2); Albumin Level 2.5 gm/dl (3.4-5.0); BUN Creatinine Ratio 38.1 (10-20); Basophils # (auto) 0.03 K/uL (0-0.2); Basophils % (auto) 0.3 %; Creatinine Clr Calc Pharmacy 179.7 ml/min; Eosinophils # (auto) 0.78 K/uL (0-0.5); Eosinophils % (auto) 7.9 %; Est GFR (African American) 136.1 ml/min; Est GFR (Non-African American) 117.4 ml/min; Globulin 2.8 gm/dl (2.5-4.0); Hematocrit (blood only) 30.1 % (37-47); Hemoglobin 9.6 g/dL (12.0-16.0); Immature Granulocytes # (auto) 0.04 K/uL (0.00-0.02); Immature Granulocytes % (auto) 0.4 %; Lymphocytes # (auto) 1.48 K/uL (1.2-3.4); Lymphocytes % (auto) 14.9 %; Mean Corpuscular Hemoglobin 29.1 pg (25-34); Mean Corpuscular Hgb Conc 31.9 g/dL (32-36); Mean Corpuscular Volume 91.2 fL (80-100); Mean Platelet Volume 8.6 fL (7.4-10.4); Monocytes % (auto) 10.1 %; Neutrophils # (auto) 6.59 K/uL (1.4-6.5); Neutrophils % (auto) 66.4 %; Platelet Count 436 K/uL (130-400); Potassium 4.4 mmol/L (3.5-5.1); RDW Coefficient of Variation 14.7 % (11.5-14.5); RDW Standard Deviation 48.7 fL (36.4-46.3); Total Protein 5.3 gm/dl (6.0-8.3); White Blood Count 9.92 K/uL (4.8-10.8)
--- NOTE | 2021-04-29 07:48 | Hospitalist Progress Note ---
Date of Service April 29, 2021 Assessment & Plan (1) Left hip pain: Plan: * Patient sustained a ground-level fall resulting in periprosthetic fracture of the LEFT distal femur * 2 complaining of L hip pain. Xray without acute pathology and CT obtained to r/o occult fracture --> negative for hip fracture POD#3 s/p ORIF with Dr Abernathy 04/26. EBL 400cc Hgb 11.2 post-op -- acute blood loss anemia from surgery and dilutional from IVF --> currently 10.1 --> Iron low 14, transferrin 176 -- given venofer x 1., will repeat again 2 B12 also borderline low and complaints of neuropathy at baseline --> IM while inpatient and can continue at d/c with PO supplementaion Plans for possible xarelto 10mg x 14 days given risk for DVT/PE -->ortho ordered ASA 81mg BID but can consider changing to Xarelto at d/c but would wait additional until tomorrow morning at earliest. will discuss with patient in am if willing to utilize xarelto -- given bleeding 04/28 for dressing change would hold off on changing to Xarelto just yet hgb 9.6 2, however did get 250cc NSS bolus and extra 12.5mg for tachycardia. EF on most recent echo >70% and EKG with some ischemic changes which could be from stress from surgery. No chest pain or shortness of breath endorsed low grade temp 37.8C this am --> will check CXR to look for atelectasis vs PNA given POD#3 Pain control/antiemetics prn -- reported less discomfort today, but still quite sore w movements but improving, controlled with tylenol PT/OT following surgery (from [facility]) --> bed hold and can return when stable, likely over the weekend (2) Closed fracture of left distal femur: Plan: * Femur CT revealed acute comminuted and displaced fracture within the distal left femur. There is internal fixation of an old healed proximal left femoral fracture with an intramedullary shelby and interlocking femoral neck pin. * Patient currently in the immobilizer, pain being managed with Tylenol and oxycodone. * For OR for ORIF today, NPO, diet following Pain control -- effective w Tylenol, occasional oxycodone as needed for breakthrough +BM 04/28 copious ASA 81mg BID for now, consider Xarelto 10mg x 14 days given risk for DVT/PE but would wait until AM PER ORTHO -- would continue to wait for now given bleeding AM 04/28 but could consider switching at discharge or tomorrow, whichever first if bleeding controlled and hgb stable on repeat in am PT/OT--> to return to [facility] for continued rehab, is a bed hold (3) Aortic stenosis: Plan: * s/p TAVR in December 2019. * Followed by [facility] * Most recent echocardiogram done 07/06 showing hyperdynamic EF of 70% without obvious regional wall motion abnormalities. * --> repeat ECHO with bioprosthetic valve with acceptable transvalvular gradient/velocity * --> Of note, pericardial effusion has resolved compared to study 06/25/20 (needed pericardiocentesis 2020 1000cc bloody fluid) * Advised against spinal anesthesia given her aortic stenosis (4) Chronic diastolic CHF (congestive heart failure): Plan: * Echo from June 2020 revealed EF 70%, no obvious regional wall abnormalities. * Repeat Echo ordered, as above * Slightly volume up 04/27, +JVD --> lasix 20mg PO x 1. * Not on diuretics as outpatient * Would advise against aggressive fluid replacement intraoperatively (5) CAD (coronary artery disease): Plan: * also has history of bioprosthetic aortic valve (s/p TAVR december 2019). Follows with Dr. Guzman * Cardiac cath in March 2019 revealed mild LAD disease. * Patient does not complain of chest pain or shortness of breath today. * Continue metoprolol but hold ASA in the setting of need for surgical intervention. Would advise resumption of this 48 hours post op --> resumed BID 04/27 for DVT prophylaxis * History of pericardial effusion requiring pericardiocentesis in June 2020. Placed on colchicine daily. Echo in January 05 revealed near complete resolution. Colchicine continued * EKG showing no acute pathology. Incomplete right bundle branch block which is unchanged from prior EKG * Current revised cardiac risk index = 3; however, significant increased risk of never walking again, DVT/PE, skin breakdown and wounds leading to sepsis without surgical intervention * Continue metoprolol 12.5mg daily, ASA extra 12.5mg metoprolol given evening 04/28 for tachycardia, confirmed on EKG no afib/flutter (6) Type 2 diabetes mellitus: Plan: * Currently on 14 units of Levemir daily. * Decreased dose to 8 u for this morning as NPO, resume usual dose in AM if keeping up with PO intake * Accu-Cheks ACHS with sliding scale coverage. * Hold Jardiance, Trulicity, Metformin during hospitalization. * BSGs acceptable but INCREASED TO 363 afternoon 04/27, improved Elevated again afternoon 04/28 but did get dose venofer -> pharmacy notified for BSG 294 Would rec decreasing home regimen/consolidation to prevent issues as A1c shows good control and maybe aggressive treatment (7) Mood disorder: Plan: * Continue BuSpar and citalopram. (8) DVT prophylaxis: Plan: * SCDs ordered. * Heparin SQ Q12 on board --> HELD FOR OR, RESUMED ASA BUT 81MG BID 04/27 FOR DVT PROPHYLAXIS FOR NOW * Would CONSIDER Xarelto 10mg daily x 14 days given this being a fracture which poses increased risk of DVT/PE Plan: [facility] IN NEXT 24-48 HOURS Admission and Anticipated Discharge Date Admission Date: April 24, 2021 Results & Data Results & Data ([facility]) Vital Signs (Past 12 Hours) Vital Signs Temp Pulse Resp BP Pulse Ox 04/28/21 22:36 37.8 C H 97 H 20 103/63 93 Laboratory Results 04/29/21 04/29/21 04/28/21 Range/Units 06:08 06:08 20:34 WBC 9.92 (4.8-10.8) K/uL RBC 3.30 L (4.2-5.4) M/uL Hgb 9.6 L (12.0-16.0) g/dL Hct 30.1 L (37-47) % MCV 91.2 (80-100) fL MCH 29.1 (25-34) pg MCHC 31.9 L (32-36) g/dL RDW Std Deviation 48.7 H (36.4-46.3) fL RDW Coeff of Sharri 14.7 H (11.5-14.5) % Plt Count 436 H (130-400) K/uL MPV 8.6 (7.4-10.4) fL Immature Gran % (Auto) 0.4 % Neut % (Auto) 66.4 % Lymph % (Auto) 14.9 % [place] % (Auto) 10.1 % Eos % (Auto) 7.9 % Baso % (Auto) 0.3 % Neut # (Auto) 6.59 H (1.4-6.5) K/uL Lymph # (Auto) 1.48 (1.2-3.4) K/uL [place] # (Auto) 1.00 H (0.11-0.59) K/uL Eos # (Auto) 0.78 H (0-0.5) K/uL Baso # (Auto) 0.03 (0-0.2) K/uL Immature Gran # (Auto) 0.04 H (0.00-0.02) K/uL Sodium 136 (136-145) mmol/L Potassium 4.4 (3.5-5.1) mmol/L Chloride 102 (98-107) mmol/L Carbon Dioxide 30 (21-32) mmol/L Anion Gap 4 (3-11) BUN 8 (6-23) mg/dl Creatinine 0.21 L (0.6-1.2) mg/dl Est Cr Clr Drug Dosing 179.7 ml/min Est GFR ( Amer) 136.1 ml/min Est GFR (Non-Af Amer) 117.4 ml/min BUN/Creatinine Ratio 38.1 H (10-20) Glucose 130 H (70-99(Fasting)) mg/dl POC Glucose 153 H (70-99) mg/dl Calcium 8.0 L (8.5-10.1) mg/dl Magnesium (1.7-2.4) mg/dl Iron (35-150) mcg/dl Unsaturated IBC (155-355) mcg/dl Transferrin (200-360) mg/dl Ferritin (8-388) ng/ml Total Bilirubin 1.0 (0.2-1.0) mg/dl AST 24 (13-39) U/L ALT 18 (7-52) U/L Alkaline Phosphatase 62 (34-104) U/L Total Protein 5.3 L (6.0-8.3) gm/dl Albumin 2.5 L (3.4-5.0) gm/dl Globulin 2.8 (2.5-4.0) gm/dl Albumin/Globulin Ratio 0.9 (0.9-2) Vitamin B12 (211-911) pg/ml TSH (0.300-4.500) uIu/ml 04/28/21 04/28/21 04/28/21 Range/Units 17:05 11:51 08:08 WBC (4.8-10.8) K/uL RBC (4.2-5.4) M/uL Hgb (12.0-16.0) g/dL Hct (37-47) % MCV (80-100) fL MCH (25-34) pg MCHC (32-36) g/dL RDW Std Deviation (36.4-46.3) fL RDW Coeff of Sharri (11.5-14.5) % Plt Count (130-400) K/uL MPV (7.4-10.4) fL Immature Gran % (Auto) % Neut % (Auto) % Lymph % (Auto) % [place] % (Auto) % Eos % (Auto) % Baso % (Auto) % Neut # (Auto) (1.4-6.5) K/uL Lymph # (Auto) (1.2-3.4) K/uL [place] # (Auto) (0.11-0.59) K/uL Eos # (Auto) (0-0.5) K/uL Baso # (Auto) (0-0.2) K/uL Immature Gran # (Auto) (0.00-0.02) K/uL Sodium (136-145) mmol/L Potassium (3.5-5.1) mmol/L Chloride (98-107) mmol/L Carbon Dioxide (21-32) mmol/L Anion Gap (3-11) BUN (6-23) mg/dl Creatinine (0.6-1.2) mg/dl Est Cr Clr Drug Dosing ml/min Est GFR ( Amer) ml/min Est GFR (Non-Af Amer) ml/min BUN/Creatinine Ratio (10-20) Glucose (70-99(Fasting)) mg/dl POC Glucose 143 H 294 H (70-99) mg/dl Calcium (8.5-10.1) mg/dl Magnesium (1.7-2.4) mg/dl Iron (35-150) mcg/dl Unsaturated IBC 222 (155-355) mcg/dl Transferrin 176 L (200-360) mg/dl Ferritin 168.8 (8-388) ng/ml Total Bilirubin (0.2-1.0) mg/dl AST (13-39) U/L ALT (7-52) U/L Alkaline Phosphatase (34-104) U/L Total Protein (6.0-8.3) gm/dl Albumin (3.4-5.0) gm/dl Globulin (2.5-4.0) gm/dl Albumin/Globulin Ratio (0.9-2) Vitamin B12 (211-911) pg/ml TSH (0.300-4.500) uIu/ml 04/28/21 04/28/21 04/28/21 Range/Units 08:08 08:08 08:05 WBC (4.8-10.8) K/uL RBC (4.2-5.4) M/uL Hgb (12.0-16.0) g/dL Hct (37-47) % MCV (80-100) fL MCH (25-34) pg MCHC (32-36) g/dL RDW Std Deviation (36.4-46.3) fL RDW Coeff of Sharri (11.5-14.5) % Plt Count (130-400) K/uL MPV (7.4-10.4) fL Immature Gran % (Auto) % Neut % (Auto) % Lymph % (Auto) % [place] % (Auto) % Eos % (Auto) % Baso % (Auto) % Neut # (Auto) (1.4-6.5) K/uL Lymph # (Auto) (1.2-3.4) K/uL [place] # (Auto) (0.11-0.59) K/uL Eos # (Auto) (0-0.5) K/uL Baso # (Auto) (0-0.2) K/uL Immature Gran # (Auto) (0.00-0.02) K/uL Sodium (136-145) mmol/L Potassium (3.5-5.1) mmol/L Chloride (98-107) mmol/L Carbon Dioxide (21-32) mmol/L Anion Gap (3-11) BUN (6-23) mg/dl Creatinine (0.6-1.2) mg/dl Est Cr Clr Drug Dosing ml/min Est GFR ( Amer) ml/min Est GFR (Non-Af Amer) ml/min BUN/Creatinine Ratio (10-20) Glucose (70-99(Fasting)) mg/dl POC Glucose 184 H (70-99) mg/dl Calcium (8.5-10.1) mg/dl Magnesium (1.7-2.4) mg/dl Iron 14 L (35-150) mcg/dl Unsaturated IBC (155-355) mcg/dl Transferrin (200-360) mg/dl Ferritin (8-388) ng/ml Total Bilirubin (0.2-1.0) mg/dl AST (13-39) U/L ALT (7-52) U/L Alkaline Phosphatase (34-104) U/L Total Protein (6.0-8.3) gm/dl Albumin (3.4-5.0) gm/dl Globulin (2.5-4.0) gm/dl Albumin/Globulin Ratio (0.9-2) Vitamin B12 326 (211-911) pg/ml TSH (0.300-4.500) uIu/ml 04/28/21 04/28/21 Range/Units 06:57 06:57 WBC (4.8-10.8) K/uL RBC (4.2-5.4) M/uL Hgb (12.0-16.0) g/dL Hct (37-47) % MCV (80-100) fL MCH (25-34) pg MCHC (32-36) g/dL RDW Std Deviation (36.4-46.3) fL RDW Coeff of Sharri (11.5-14.5) % Plt Count (130-400) K/uL MPV (7.4-10.4) fL Immature Gran % (Auto) % Neut % (Auto) % Lymph % (Auto) % [place] % (Auto) % Eos % (Auto) % Baso % (Auto) % Neut # (Auto) (1.4-6.5) K/uL Lymph # (Auto) (1.2-3.4) K/uL [place] # (Auto) (0.11-0.59) K/uL Eos # (Auto) (0-0.5) K/uL Baso # (Auto) (0-0.2) K/uL Immature Gran # (Auto) (0.00-0.02) K/uL Sodium 133 L (136-145) mmol/L Potassium 3.8 (3.5-5.1) mmol/L Chloride 98 (98-107) mmol/L Carbon Dioxide 28 (21-32) mmol/L Anion Gap 7 (3-11) BUN 11 (6-23) mg/dl Creatinine 0.28 L (0.6-1.2) mg/dl Est Cr Clr Drug Dosing 134.8 ml/min Est GFR ( Amer) 123.8 ml/min Est GFR (Non-Af Amer) 106.8 ml/min BUN/Creatinine Ratio 39.3 H (10-20) Glucose 194 H (70-99(Fasting)) mg/dl POC Glucose (70-99) mg/dl Calcium 7.9 L (8.5-10.1) mg/dl Magnesium 1.8 (1.7-2.4) mg/dl Iron (35-150) mcg/dl Unsaturated IBC (155-355) mcg/dl Transferrin (200-360) mg/dl Ferritin (8-388) ng/ml Total Bilirubin (0.2-1.0) mg/dl AST (13-39) U/L ALT (7-52) U/L Alkaline Phosphatase (34-104) U/L Total Protein (6.0-8.3) gm/dl Albumin (3.4-5.0) gm/dl Globulin (2.5-4.0) gm/dl Albumin/Globulin Ratio (0.9-2) Vitamin B12 (211-911) pg/ml TSH 0.876 (0.300-4.500) uIu/ml PG Care Time/CCT Total # of Minutes Spent Total Time Spent with Patient: Total time spent is greater than 50% in coordination of care (as documented) at patient's floor/unit and/or counseling patient: Coding Diagnoses Left hip pain M25.552 Closed fracture of left distal femur S72.402A Aortic stenosis I35.0 Cardiac valve disease etiology: etiology unspecified Chronic diastolic CHF (congestive heart failure) I50.32 CAD (coronary artery disease) I25.10 Type 2 diabetes mellitus E11.9 Mood disorder F39 DVT prophylaxis Z29.9 (1) Aortic stenosis Cardiac valve disease etiology: etiology unspecified Qualified Code(s): I35.0 - Nonrheumatic aortic (valve) stenosis
[2021-04-29] MEDS ORDERED: IRON SUCROSE 200 MG in 0.9 % SODIUM CHLORIDE 100 ML IV ONE (08:30)
[2021-04-29] MEDS: ASPIRIN 81 MG ECTAB PO SCH (08:52)
[2021-04-29] MEDS: CHOLECALCIFEROL 1,000 UNITS 25 MCG TAB PO SCH (08:52)
[2021-04-29] MEDS: MULTIVITAMIN TAB PO SCH (08:52)
[2021-04-29] MEDS: COLCHICINE 0.6 MG TAB PO SCH (08:53)
[2021-04-29] MEDS: busPIRone 5 MG TAB PO SCH ×2 (08:53→12:16)
[2021-04-29] MEDS: DOCUSATE SODIUM/SENNA 50/8.6MG TAB PO SCH (08:53)
[2021-04-29] MEDS: DOCUSATE SODIUM 100 MG CAP PO SCH (08:53)
[2021-04-29] MEDS: POLYETHYLENE (MIRALAX) 17 GM PACK PO SCH (08:55)
[2021-04-29] MEDS: METOPROLOL SUCC 25MG EXT REL TAB PO SCH (08:56)
[2021-04-29] MEDS: INSULIN ASPART PER UNIT SC SCH ×2 (09:00→12:15)
[2021-04-29] MEDS: INSULIN DETEMIR FLEXPEN/FLEX TOUCH 100 UNITS/ML 3ML SC SCH (09:01)
--- NOTE | 2021-04-29 09:50 | XRay Report ---
XR chest 2V PA/lateral HISTORY: Postop day 3, low grade temp, ?atelectasis vs pneumonia COMPARISON: Chest 10/14/2019. FINDINGS: No pneumothorax. No pleural effusions. Postoperative changes noted within the bilateral cheryl ulders. An aortic valve stent is noted. Dense mitral annulus calcifications are present. No new focal lung consolidations to suggest pneumonia. Site progression of the interstitial/vascular thickening c onsistent with mild congestive change. The heart remains enlarged. IMPRESSION: 1. Cardiomegaly with mild central pulmonary vascular congestion without overt edema. 2. No new focal lung consolidations to suggest pneumonia. ACT 112: Negative or not required by law. Electronically signed by: Donavan Martinez M.D. 04/29/2021 9:49 AM
[2021-04-29] MEDS: oxyCODONE HCL IR 5 MG TAB (IMMEDIATE RELEASE) PO PRN ×2 (09:55→12:49)
[2021-04-29] MEDS: CYANOCOBALAMIN 1000 MCG/ML VIAL IM SCH (09:55)
--- NOTE | 2021-04-29 10:47 | Discharge Summary ---
Date of Service April 29, 2021 Admission HPI Per Admitting Provider This is an 86 y/o female with a PMH of aortic stenosis s/p TAVR 12/2019, pericardial effusion in June 2020, RBBB, DM2, and previous left and right intertrochanteric femoral nailing who presents to emergency department from [facility] for an evaluation of knee pain after a ground level fall 2 days ago. Patient was ambulating with her walker and reaching for something when she tripped and landed on her knee. She was initially evaluated by providers at [facility] and had outpatient x-rays which revealed an abnormality. [facility] was consulted as they are familiar with this patient, who sent her to the emergency department for further evaluation and possible inpatient management. Patient is very hard of hearing and a poor historian, but reports knee pain, denies pain elsewhere, denies hitting her head, LOC, confusion, nausea, vomiting, palpitations or chest pain preceding or after fall. She states the pain is mild to moderate with elevation of the leg but becomes very severe with any ambulation or movement of the left knee. It was found that she had a left comminuted distal femur fracture. Principal Diagnosis General: awake, alert, no apparent distress Head: Normocephalic, atraumatic ENT: PERRL, EOMI, no pharyngeal exudate, mucous membranes moist Chest: Clear to auscultation, on room air, no adventitious breath sounds Cardiac: Regular rate and rhythm, no murmur, no JVD, normal peripheral pulses, good capillary refill Abdominal: NABS x 4 quadrants, soft, nontender to palpation, no rebound, guarding or tenderness Extremities: Left knee swollen, wrapped in knee immobilizer prior to my exam. Patient unable to move extremity due to pain. All other joints without swelling, ecchymosis, or pain on exam. Psych: Normal mood and affect Neuro: AAO x 3, strength intact bilaterally and rated 5/5, no motor deficits, speech is clear, no peripheral sensory deficits Skin: no rash or erythema Discharge Exam General: WN/WD elderly female resting in hospital bed sleeping, NAD, general pallor HEENT: atraumatic, normocephalic, mmm, trachea midline without deviation, HARD OF HEARING Resp: CTAB, no w/c/r, on room air CV: RRR (rate 96bpm), 3/6 systolic murmur to carotids, no RLE edema, pulses palpable, cap refill <3 seconds GI: +BS throughout, soft, nontender Ext: dressing to LLE scant bloody drainage otherwise intact, immobilizer in place, toes mobile, NVI, cap refill < 3 seconds, decreased sensation to light touch b/l le Psych: alert, oriented to person, place/time 2021 Neuro: no focal deficit, answering questions appropriately Discharge Data Allergies Allergy/AdvReac Type Severity Reaction Status Date / Time naproxen [From Naprosyn] AdvReac Rash Verified 04/24/21 15:40 NSAIDS (Non-Steroidal AdvReac Rash Verified 04/24/21 15:40 Anti-Inflamma Consultations 04/24/21 13:23 Consult Orthopedic Surgery Stat 04/24/21 14:28 ED Decision to Admit Stat Procedures Performed Operation Date: 04/26/21 07:00 Actual Procedures p Left Open Reduction Internal Fixation Distal Periprosthetic Femur Fracture(Lef t) - Matias Abernathy DO Ordered Studies Hip/Pelvis X-Ray 04/24/21 13:21 XR hip LT 2V w pelvis CLINICAL HISTORY: Left hip pain following fall. COMPARISON: Pelvis and left hip radiographs February 11, 2018. FINDINGS: Incidental note is made of several calcified fibroids. Sacroiliac joints and symphysis pubis are intact. No acute fracture within the pelvis or hips is identified. Bilateral proximal femoral internal fixations with trochanteric nails are noted. There is extensive heterotopic ossification associ ated with the healed intertrochanteric/subtrochanteric fractures. The acute distal left femoral fracture is partially imaged on this exam. This is better depicted on the left knee radiographs. IMPRESSION: 1. No acute fracture within the pelvis or hips. Status post bilateral proximal femoral internal fixations, as described above. 2. Acute distal left femoral fracture better depicted on the left knee radiographs. Please see that report for further description. ACT 112: Negative or not required by law. Electronically signed by: Elder Plasencia M.D. 04/24/2021 2:03 PM Knee X-Ray 04/24/21 13:21 XR knee LT 1 or 2V routine CLINICAL HISTORY: fall. Left knee pain COMPARISON STUDY: No previous studies for comparison. TECHNIQUE: AP and lateral left knee views FINDINGS: Bones: The distal end of an intramedullary shelby is present within the femur. There is evidence for a comminuted, displaced fracture present involving the distal third of the femoral shaft, laterally and extending both anteriorly and posteriorly as seen on the lateral radiograph. There is no extension into the knee joint. The tibia and patella are intact. There is no lytic or blastic lesion. Joints: There is mild narrowing of the medial joint compartment. There is no evidence for an intra-articular effusion. The bones are in anatomic alignment. Soft tissues: There is no focal soft tissue abnormality. There is no radiopaque foreign body. IMPRESSION: Comminuted, mildly displaced fracture involving the distal third of the femoral shaft laterally with fracture lines extending both anteriorly and posteriorly. ACT 112: Negative or not required by law. Electronically signed by: Munir Portillo M.D. 04/24/2021 2:[address] 04/24/21 14:[address] DOSE: 1334.57 mGy.cm HISTORY: Left femoral pain. fall TECHNIQUE: Multiaxial CT images of the left femur were performed and reformatted in the sagittal and coronal plane without the use of contrast. A dose lowering technique was utilized adhering to the principles of ALARA. COMPARISON: Left hip and left knee 04/24/2021. FINDINGS: The visualized pelvic bones are intact. Internal fixation of an old, healed proximal left femoral fracture with an intramedullary shelby and interlocking femoral neck pin. No acute fracture or dislocation within the prox imal left femur. There is a comminuted and mildly displaced fracture involving the mid to distal shaft of the left femur which extends to the distal metaphysis. This does not appear to extend to the articular surface of the distal femur. The fracture results in angulation of the distal interlocking femoral screw. The fragments demonstrate up to 1.3 cm of lateral displacement and 2 cm of overlap. The fracture slightly impacted. Small left knee effusion. Soft tissue swelling within the distal left thigh. IMPRESSION: There is an acute comminuted and displaced fracture within the distal left femur described above. ACT 112: Negative or not required by law. Electronically signed by: Donavan Martinez M.D. 04/24/2021 3:09 PM 2/[address] 04/25/21 11:[address] DOSE: 795.67 mGy.cm HISTORY: Left femoral fracture. Evaluate left hip. Left hip pain. r/o fx TECHNIQUE: Multiaxial CT images of the left hip were performed and reformatted in the sagittal and coronal plane without the use of contrast. A dose lowering technique was utilized adhering to the principles of ALARA. COMPARISON: Left femur CT 04/24/2021. FINDINGS: There is again noted prior internal fixation of an old, healed fracture the proximal left femur. There is a left femoral intramedullary shelby within interlocking femoral neck pin. The hardware appears intact. The patient's known distal left femoral fracture is not included on this study. Bony overgrowth within the medial aspect of the proximal femur consistent with old posttraumatic changes. No acute fracture or dislocation within the proximal left femur. The visualized pelvic bones are intact. 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 Soft tissues within the left hip are within normal limits. Partially visualized calcified uterine fibroid in a few colonic diverticula are noted. Distended fluid-filled loops of small bowel are partially visualized. This could represent a mild ileus. IMPRESSION: 1. No acute fracture or dislocation within the left hip. 2. Old posttraumatic and postoperative changes as described above. ACT 112: Negative or not required by law. Electronically signed by: Donavan Martinez M.D. 04/25/2021 1:45 PM Femur X-Ray 04/26/21 13:00 FL femur LT 2V CLINICAL HISTORY: LT ORIF PERIPROSTHETIC FEMUR FX COMPARISON STUDY: Left femur CT 04/24/2021 FLUOROSCOPY TIME: 1 minute and 26 seconds. FINDINGS: 6 fluoroscopic spot images of the left femur. Status post internal fixation of a distal left femoral periprosthetic fracture with a lateral cortical plate transfixed with screws. There is improved anatomic alignment. Hardware appears intact. The intramedullary shelby is in place. There is normal, healed proximal left femoral fracture again noted. IMPRESSION: Fluoroscopic assistance provided for internal fixation of a distal left femoral periprosthetic fracture. ACT 112: Negative or not required by law. Electronically signed by: Donavan Martinez M.D. 04/26/2021 8:55 PM Chest X-Ray 04/29/21 07:42 XR chest 2V PA/lateral HISTORY: Postop day 3, low grade temp, ?atelectasis vs pneumonia COMPARISON: Chest 10/14/2019. FINDINGS: No pneumothorax. No pleural effusions. Postoperative changes noted within the bilateral shoulders. An aortic valve stent is noted. Dense mitral annulus calcifications are present. No new focal lung consolidations to suggest pneumonia. Site progression of the interstitial/vascular thickening consistent with mild congestive change. The heart remains enlarged. IMPRESSION: 1. Cardiomegaly with mild central pulmonary vascular congestion without overt edema. 2. No new focal lung consolidations to suggest pneumonia. ACT 112: Negative or not required by law. Electronically signed by: Donavan Martinez M.D. 04/29/2021 9:49 AM Hospital Course (1) Closed fracture of left distal femur: Patient sustained a ground-level fall resulting in periprosthetic fracture of the LEFT distal femur 04/25 complaining of L hip pain. Xray without acute pathology and CT obtained to r/o occult fracture --> negative for hip fracture s/p ORIF with Dr Abernathy 04/26. EBL 400cc Hgb 11.2 post-op -- acute blood loss anemia from surgery and dilutional from IVF --> Iron low 14, transferrin 176 -- given venofer x 1., will repeated again 04/29 and sent PO supplementation with encouragement of bowel regimen at d/c. +BM 04/28 B12 also borderline low and complaints of neuropathy at baseline --> IM while inpatient and continued PO supplementation at discharge NWB LLE, immobilizer at all times Will need f/u ortho 2-3 weeks ASA 81mg BID for DVT Prophylaxis hgb 9.6 04/29, however did get 250cc NSS bolus (and IVF days prior) and extra 12.5mg metoprolol for tachycardia. EF on most recent echo >70% and EKG with some ischemic changes which could be from stress from surgery. No chest pain or shortness of breath endorsed --> consider increasing metoprolol to 25mg daily at outpatient follow-up low grade temp 37.8C overnight, likely atelectasis (bibasilar crackles) --> NO endorsement of f/c, CXR with mild central pulm vasc congestion without overt edema (similar to on admission) NO NEW FOCAL LUNG CONSOLIDATIONS to suggest pneumonia Pain control -- Tylenol scheduled, oxycodone prn --> decreased pain reported PT/OT consulted --> return to centre cares planned (2) Left hip pain: (3) Aortic stenosis: * s/p TAVR in December 2019. * Followed by [facility] * Most recent echocardiogram done 07/06 showing hyperdynamic EF of 70% without obvious regional wall motion abnormalities. * --> repeat ECHO with bioprosthetic valve with acceptable transvalvular gradient/velocity * --> Of note, pericardial effusion has resolved compared to study 06/25/20 (needed pericardiocentesis 2020 1000cc bloody fluid) * Advised against spinal anesthesia given her aortic stenosis (4) Chronic diastolic CHF (congestive heart failure): * Echo from June 2020 revealed EF 70%, no obvious regional wall abnormalities. * Repeat Echo ordered, as above * Slightly volume up 04/27, +JVD --> lasix 20mg PO x 1. * Not on diuretics as outpatient * Would advise against aggressive fluid replacement intraoperatively Euvolemic prior to discharge (5) CAD (coronary artery disease): * also has history of bioprosthetic aortic valve (s/p TAVR december 2019). Follows with Dr. Guzman * Cardiac cath in March 2019 revealed mild LAD disease. * Patient does not complain of chest pain or shortness of breath today. * Continue metoprolol but hold ASA in the setting of need for surgical intervention. Would advise resumption of this 48 hours post op --> resumed BID 04/27 for DVT prophylaxis * History of pericardial effusion requiring pericardiocentesis in June 2020. Placed on colchicine daily. Echo in January 05 revealed near complete resolution. Colchicine continued * EKG showing no acute pathology. Incomplete right bundle branch block which is unchanged from prior EKG * Current revised cardiac risk index = 3; however, significant increased risk of never walking again, DVT/PE, skin breakdown and wounds leading to sepsis without surgical intervention * Continue metoprolol 12.5mg daily, ASA extra 12.5mg metoprolol given evening 04/28 for tachycardia, confirmed on EKG no afib/flutter Consider increasing metoprolol to 25mg at outpt f/u (6) Type 2 diabetes mellitus: * Currently on 14 units of Levemir daily. * Decreased dose to 8 u for this morning as NPO, resume usual dose in AM if keeping up with PO intake * Accu-Cheks ACHS with sliding scale coverage. * Hold Jardiance, Trulicity, Metformin during hospitalization. BSG elevations 04/28 in setting of venofer with dextrose in replacement, BSGs remained stable 24hr prior to d/c Pharmacy consulted while inpatient for glycemic management --> discontinued lantus at discharge and continue monitoring BSG at d/c with repeat A1c 3 months. Recommended consolidating regimen but keeping Jardiance/trulicity given hx CAD and benefit (7) Mood disorder: * Continued BuSpar and citalopram. (8) DVT prophylaxis: * SCDs ordered. * Heparin SQ Q12 on board --> HELD FOR OR, RESUMED ASA BUT 81MG BID 04/27 FOR DVT PROPHYLAXIS Total Time Total Time Spent Total Time Spent (In Minutes): 50 Discharge Plan Discharge Items Patient Disposition: Transfer Detention Fac Reason For Visit: L DISTAL FEMUR FRACTURE Discharge Diagnosis: Left Femur Fracture Goals: You have been hospitalized for an urgent problem which required surgery. During your stay at [facility], we have made an effort to correct the problem that brought you to the hospital while keeping you as comfortable as possible. Surgery and medications were used to bring your condition under control and your discharge instructions will include directions for any medications you should take after leaving the hospital. Please make sure to follow the advice of your surgeon regarding follow up with the surgeon and with your primary care provider. Activity: As commented below Activity Comment: NON WEIGHT BEARING LEFT LOWER EXTREMITY Weightbearing: Left non-weightbearing Non-emergency contact: Primary Care Provider and Surgeon Call non-emergency contact if: you have any medication questions, your symptoms worsen, your pain is not controlled and you have a fever Follow-up/Referrals: Matias Abernathy DO [Surgeon] - (follow up in 10-14 days from the day of surgery.) [place] [Primary Care Provider] - Diet: Carb Consistent or DM2 and Heart Healthy Addtl Attending Provider Instructions: You have been hospitalized for a left femur fracture. This was surgically repaired. You will need follow up with Dr. Abernathy in 10-14 days from surgery for follow up. You will continue aspirin 81mg by mouth twice daily. You were also given iron replacement while inpatient and can continue supplementation daily to help with your blood counts. Please note this can cause constipation and you should take stool softeners over the counter to help with bowel movements if needed. Given your neuropathy/numbness/tingling to legs a B12 level was checked and was borderline low. This can contribute to memory issues as well as balance, of note, and you were given replacement and should continue a daily supplement at discharge. For your insulin/diabetes management, your A1c was 7.6 and for simplicy and this may be too aggressive, your novolog has been discontinued. You should continue monitoring blood sugars and have repeat A1c in 3 months to see if further adjustments required. Please follow up with PCP in 7-10 days to monitor your progress after discharge. Please return to the emergency department with any chest pain/shortness of breath, uncontrolled pain, or for any other symptoms concerning for you. Take care! Addtl Slack Cooper Provider Instructions: Nonweightbearing left lower extremity Must wear immobilizer at all times. May remove for bathing and changing clothes. NO RANGE OF MOTION OF THE LEFT KNEE AT THIS TIME. Prevena- This is a large suction dressing covering your incision. This will help pull any excess drainage from the wound and allow your incision to heal properly. You may shower with this if you can keep the unit outside of the shower. If any bleeding or leakage is noted please call your doctor's office. This will remain on your incision for 7 days and then should be removed. This can be done yourself or by the home nursing staff if applicable. The entire unit is disposable once removed. Once removed, keep incision clean and dry. If redness or drainage is noted, please call your surgeon. Follow up with Dr. Abernathy in 10-14 days from the day of surgery. Pending Studies at Discharge: No Stand-Alone Forms: My [facility] Skilled Items Patient informed of condition?: Yes DNR: No Discharge Level of Care: Skilled Communicable Disease: No Discharge Prognosis: Stable Lines: None Urinary Catheter: No Medications and DC Order Prescriptions: New polyethylene glycol 3350 [Miralax] 17 gram Powder In Packet 17 g PO DAILY PRN (Reason: constipation) 30 Days RF: 0 sennosides-docusate sodium [Senokot-S] 8.6-50 mg Tablet 1 tab PO QAM 30 Days Qty: 30 RF: 0 multivitamin with folic acid [Daily-Dariana (with folic acid)] 400 mcg Tablet 1 tab PO QAM 30 Days Qty: 30 RF: 0 cyanocobalamin (vitamin B-12) 1,000 mcg capsule 1,000 mcg PO DAILY Qty: 30 RF: 1 ferrous sulfate 325 mg (65 mg iron) tablet 325 mg PO DAILY Qty: 30 RF: 0 Continued PreserVision AREDS [id number] Tablet 1 tab PO BIDM RF: 0 metoprolol succinate 25 mg tablet extended release 24 hr 12.5 mg PO QAM RF: 0 Jardiance 25 mg Tablet 25 mg PO QAM RF: 0 Trulicity 0.75 mg/0.5 mL Pen Injector 0.75 mg SUBCUT WK RF: 0 Levemir U-100 Insulin 100 unit/mL solution 14 unit subcut DAILY RF: 0 colchicine [Colcrys] 0.6 mg Tablet 0.6 mg PO QAM Qty: 30 RF: 1 acetaminophen [Tylenol] 325 mg Tablet 650 mg PO Q6H MDD 3 GRAMS/24 HOURS PRN (Reason: PAIN/FEVER) RF: 0 citalopram [Celexa] 10 mg Tablet 10 mg PO HS RF: 0 insulin aspart U-100 [Novolog U-100 Insulin aspart] 100 unit/mL Solution 1 sliding scale dose SUBCUT ACHS RF: 0 buspirone 10 mg Tablet 10 mg PO TIDM RF: 0 oxycodone 5 mg Tablet 5 mg PO Q6H PRN (Reason: Pain, Moderate/SEVERE) RF: 0 metformin 500 mg Tablet Extended Release 24hr 1,000 mg PO BID RF: 0 cholecalciferol (vitamin D3) [Vitamin D3] 50 mcg (2,000 unit) Capsule 50 mcg PO QAM RF: 0 Centrum Silver Women 8 mg iron-400 mcg-300 mcg Tablet 1 tab PO QAM RF: 0 carboxymethylcellulose sodium [Refresh Plus] 0.5 % Dropperette 2 drp OPHTHALMIC (EYE) TID RF: 0 diclofenac sodium 1 % Gel 2 g TOPICAL QID RF: 0 Changed aspirin 81 mg Tablet,Delayed Release (Dr/Ec) 81 mg PO BID Qty: 0 RF: 0 Discontinued insulin aspart U-100 [Novolog U-100 Insulin aspart] 100 unit/mL Solution 0 unit SUBCUT QPM RF: 0 Discharge Orders: Discharge Order (Routine); Ordered 04/29/21 Ordered By: Thea Hassan/Other Patient Handouts: Managing Type 2 Diabetes Admission Data Admit Date/Time: 04/24/21 16:47 Attending Provider: Kartik De Anda Admit Provider: Musa Spaulding Primary Care Provider: [place] Other Providers: Matias Abernathy ; Musa Spaulding Other Interventions: Discharge Summary Assessment (RN) Last Done: 04/29/21 12:25 Coding Level of Care Code D/C DAY MANAGEMENT >30 MINS Diagnoses Left hip pain M25.552 Closed fracture of left distal femur S72.402A Aortic stenosis I35.0 Cardiac valve disease etiology: etiology unspecified Chronic diastolic CHF (congestive heart failure) I50.32 CAD (coronary artery disease) I25.10 Type 2 diabetes mellitus E11.9 Mood disorder F39 DVT prophylaxis Z29.9
--- NOTE | 2021-04-30 17:55 | Electrocardiogram Report ---
Test Reason : Blood Pressure : / mmHG Vent. Rate : 117 BPM Atrial Rate : 117 BPM P-R Int : 124 ms QRS Dur : 108 ms QT Int : 348 ms P-R-T Axes : 050 054 009 degrees QTc Int : 485 ms Sinus tachycardia with occasional Premature ventricular complexes Incomplete right bundle branch block Possible Inferior infarct , age undetermined T wave abnormality, consider anterior ischemia Abnormal ECG When compared with ECG of 24-APR-2021 22:03, Premature ventricular complexes are now Present Questionable change in QRS axis T wave inversion more evident in Inferior leads Confirmed by Jonathon Baez ([id number]) on 04/30/2021 5:54:41 PM Referred By: [facility] Confirmed By:Jonathon Baez
== END 2021-04-29 14:03 | DRG 481 ==
LOC: ED 12:48 → SUATTDRO 16:47 → 3E 16:47